=== PATIENT | male | born 1965 | race Hispanic/Latino ===

== ENCOUNTER 2018-03-01 16:42 | Emergency (ER) | payer SELFPAY ==
[2018-03-01] MEDS ORDERED: KETOROLAC 30 MG/ML INJ ONE (17:36)
[2018-03-01] MEDS ORDERED: FENTANYL CITR 100 MCG/2 ML ONE (17:36)
[2018-03-01] MEDS ORDERED: DIAZEPAM 5 MG TABLET ONE (17:36)
--- NOTE | 2018-03-01 19:08 | RAD REPORT ---
EXAM DESCRIPTION: RAD - Lumbar Spine 3 Views - 03/01/2018 5:55 pm CLINICAL HISTORY: Back pain, left lower extremity radiculopathy COMPARISON: Lumbar spine April 2017 FINDINGS: A three-view lumbar spine examination was performed. Lumbar bodies are normal in height an d alignment. No fracture or acute bony process seen. L4-5 and L5-S1 disc space narrowing present. Rosa nges are minimally progressive. L4-5 and L5-S1 facet joint degenerative changes are present. There is a very minimal right convex curvature to the lumbar spine and may be positional or muscle spasm rela steffen. No pars defects identified. IMPRESSION: Facet degenerative change mildly progressive from April 2017. L4-5 and L5-S1 disc space narrowing that appears to have progressed minimally. Concerns for occult bone process, disc herniation or central canal abnormality can be addressed with MR imaging.
--- NOTE | 2018-03-01 19:12 | EDPHYS ---
Physician Documentation [facility] Name: Blake Wilson Age: 52 yrs Sex: Male : 1965 Arrival Date: 03/01/2018 Time: 16:45 Bed 14 Private MD: ED Physician Levi Hernandez HPI: 03/01 17:07 This 52 yrs old Male presents to ER via Ambulatory with complaints of Back snw Pain. 17:07 This 52 yrs old Male presents to ER via Ambulatory with complaints of Back snw Pain. 17:07 The patient presents with pain that is acute. The symptoms are located in the low back. snw Onset: The symptoms/episode began/occurred suddenly, just prior to arrival. The pain radiates to the left leg. Associated signs and symptoms: The patient has no apparent associated signs or symptoms. The problem was sustained when bending over, when lifting heavy object. Severity of symptoms: At their worst the symptoms were incapacitating. The patient has not experienced similar symptoms in the past. It is unknown whether or not the patient has recently seen a physician. Historical: - Allergies: 16:52 No Known Allergies; hj - Home Meds: 16:52 Symbicort 80-4.5 mcg/actuation inhalation HFAA 2 puffs 2 times per day [Active]; hj - PMHx: 16:52 COPD; hj - PSHx: 16:52 None; hj - Immunization history:: Adult Immunizations up to date. - Social history:: Smoking status: unknown. ROS: 17:06 Constitutional: Negative for fever, chills, and weight loss, Eyes: Negative for injury, snw pain, redness, and discharge, ENT: Negative for injury, pain, and discharge, Neck: Negative for injury, pain, and swelling, Cardiovascular: Negative for chest pain, palpitations, and edema, Respiratory: Negative for shortness of breath, cough, wheezing, and pleuritic chest pain, Abdomen/GI: Negative for abdominal pain, nausea, vomiting, diarrhea, and constipation, : Negative for injury, bleeding, discharge, and swelling, MS/Extremity: Negative for injury and deformity, Skin: Negative for injury, rash, and discoloration, Neuro: Negative for headache, weakness, numbness, tingling, and seizure. 17:06 Back: Positive for decreased range of motion, pain at rest, pain with movement, radiated pain, of the left low back, radiation down left leg. Exam: 17:05 Head/Face: Normocephalic, atraumatic. Eyes: Pupils equal round and reactive to light, snw extra-ocular motions intact. Lids and lashes normal. Conjunctiva and sclera are non-icteric and not injected. Cornea within normal limits. Periorbital areas with no swelling, redness, or edema. ENT: Nares patent. No nasal discharge, no septal abnormalities noted. Tympanic membranes are normal and external auditory canals are clear. Oropharynx with no redness, swelling, or masses, exudates, or evidence of obstruction, uvula midline. Mucous membranes moist. Neck: Trachea midline, no thyromegaly or masses palpated, and no cervical lymphadenopathy. Supple, full range of motion without nuchal rigidity, or vertebral point tenderness. No Meningismus. Chest/axilla: Normal chest wall appearance and motion. Nontender with no deformity. No lesions are appreciated. Cardiovascular: Regular rate and rhythm with a normal S1 and S2. No gallops, murmurs, or rubs. Normal PMI, no JVD. No pulse deficits. Respiratory: Lungs have equal breath sounds bilaterally, clear to auscultation and percussion. No rales, rhonchi or wheezes noted. No increased work of breathing, no retractions or nasal flaring. Abdomen/GI: Soft, non-tender, with normal bowel sounds. No distension or tympany. No guarding or rebound. No evidence of tenderness throughout. Skin: Warm, dry with normal turgor. Normal color with no rashes, no lesions, and no evidence of cellulitis. MS/ Extremity: Pulses equal, no cyanosis. Neurovascular intact. Full, normal range of motion. Neuro: Awake and alert, GCS 15, oriented to person, place, time, and situation. Cranial nerves II-XII grossly intact. Motor strength 5/5 in all extremities. Sensory grossly intact. Cerebellar exam normal. Normal gait. 17:05 Constitutional: The patient appears alert, awake, uncomfortable. 17:05 Back: pain, that is severe, ROM is painful, normal spinal alignment noted, CVA tenderness, is absent, vertebral tenderness, is not appreciated, muscle spasm, is appreciated in the left low back, knot noted to left of lumbar vertebral column. Vital Signs: 16:52 BP 120 / 75; Pulse 100; Resp 18; Temp 98.8(TE); Pulse Ox 100% on R/A; Weight 108.86 kg; hj Height 5 ft. 4 in. (162.56 cm); Pain 9/10; 18:12 BP 126 / 75; Pulse 95; Resp 18; Pulse Ox 99% ; aj1 19:11 BP 123 / 82; Pulse 90; Resp 18; Pulse Ox 94% on R/A; mh5 19:57 BP 126 / 82; Pulse 91; Resp 18; Pulse Ox 97% on R/A; aj1 16:52 Body Mass Index 41.19 (108.86 kg, 162.56 cm) hj MDM: 16:59 Patient medically screened. snw 19:19 Data reviewed: vital signs, nurses notes. Data interpreted: Pulse oximetry: on room air snw is 94 %. Interpretation: acceptable. Counseling: I had a detailed discussion with the patient and/or guardian regarding: the historical points, exam findings, and any diagnostic results supporting the discharge/admit diagnosis, the presence of at least one elevated blood pressure reading (>120/80) during this emergency department visit, radiology results, the need for outpatient follow up, to return to the emergency department if symptoms worsen or persist or if there are any questions or concerns that arise at home. Special discussion: Based on the history and exam findings, there is no indication for further emergent testing or inpatient evaluation. I discussed with the patient/guardian the need to see the primary care provider for further evaluation of the symptoms. 03/01 17:05 Order name: Lumbar Spine (3 Views) XRAY; Complete Time: 19:09 snw Administered Medications: 18:11 Drug: Valium 5 mg Route: PO; aj1 19:39 Follow up: Response: No adverse reaction aj1 18:11 Drug: TORadol 60 mg Route: IM; Site: left gluteus; aj1 19:40 Follow up: Response: No adverse reaction aj1 18:11 Drug: fentaNYL (PF) 100 mcg Route: IM; Site: right gluteus; aj1 19:40 Follow up: Response: No adverse reaction aj1 19:39 Drug: predniSONE 60 mg Route: PO; aj1 19:41 Follow up: Response: No adverse reaction aj1 19:40 Drug: [place] (7.5 mg-325 mg) 1 tabs Route: PO; aj1 19:41 Follow up: Response: No adverse reaction aj1 19:40 Drug: Pepcid 20 mg Route: PO; aj1 19:41 Follow up: Response: No adverse reaction aj1 Disposition: 03/01/18 19:11 Discharged to Home. Impression: Low back pain, Radiculopathy, lumbar region. - Condition is Stable. - Discharge Instructions: Back Pain, Adult, Lumbosacral Radiculopathy, Musculoskeletal Pain, Back Injury Prevention, [id number], Back Exercises, [id number], Cryotherapy, Heat Therapy. - Prescriptions for Diclofenac Sodium 75 mg Oral Tablet Sustained Release - take 1 tablet by ORAL route 2 times per day; 30 tablet. orphenadrine citrate 100 mg Oral Tablet Sustained Release - take 1 tablet by ORAL route 2 times per day As needed; 20 tablet. Prednisone 20 mg Oral Tablet - take 2 tablet by ORAL route once daily for 5 days; 10 tablet. - Work release form, Medication Reconciliation Form, Thank You Letter, Antibiotic Education, Prescription Opioid Use form. - Follow up: Private Physician; When: 2 - 3 days; Reason: Recheck today's complaints, Continuance of care, Re-evaluation by your physician. Follow up: Emergency Department; When: As needed; Reason: Worsening of condition. Addendum: 03/04/2018 06:21 Co-signature as Attending Physician, Levi Hernandez MD Available for consultation at p s1 all times. . Signatures: Dispatcher [employer] Leila Jean Baptiste RN RN aj1 Wendy Soto, VENEER MANUFACTURER-C VENEER MANUFACTURER-Csnw Doc Swanson RN RN hj Singer, Phillip, MD MD ps1
--- NOTE | 2018-03-01 19:12 | ER ---
Nurse's Notes [facility] Name: Blake Wilson Age: 52 yrs Sex: Male : 1965 Arrival Date: 03/01/2018 Time: 16:45 Bed 14 Private MD: Diagnosis: Low back pain;Radiculopathy, lumbar region Presentation: 03/01 16:50 Presenting complaint: Patient states: i loaded a heavy stuff to [employer] [place] and i felt a hj warm sensation on my back and felt a tingling sensation on my L leg; pain 9/10;. Transition of care: patient was not received from another setting of care. Onset of symptoms was March 01, 2018. Initial Sepsis Screen: Does the patient meet any 2 criteria? No. Patient's initial sepsis screen is negative. Does the patient have a suspected source of infection? No. Patient's initial sepsis screen is negative. Care prior to arrival: None. 16:50 Method Of Arrival: Ambulatory 16:50 Acuity: SANGEETA 4 hj Triage Assessment: 16:52 General: Appears in no apparent distress. uncomfortable, Behavior is calm, cooperative, hj appropriate for age. Pain: Complains of pain in lumbar area, left low back and right low back. Musculoskeletal: Circulation, motion, and sensation intact. Capillary refill. Historical: - Allergies: 16:52 No Known Allergies; hj - Home Meds: 16:52 Symbicort 80-4.5 mcg/actuation inhalation HFAA 2 puffs 2 times per day [Active]; hj - PMHx: 16:52 COPD; hj - PSHx: 16:52 None; hj - Immunization history:: Adult Immunizations up to date. - Social history:: Smoking status: unknown. Screenin:12 Abuse screen: Denies threats or abuse. Denies injuries from another. Nutritional aj1 screening: No deficits noted. Tuberculosis screening: No symptoms or risk factors identified. 19:58 Fall Risk None identified. aj1 Assessment: 17:05 General: Appears in no apparent distress. comfortable, Behavior is calm, cooperative, aj1 appropriate for age. Pain: Complains of pain in low back area Pain radiates to left leg Pain currently is 9 out of 10 on a pain scale. Neuro: Level of Consciousness is awake, alert, obeys commands, Oriented to person, place, time, situation, Screen Printing Machine Operator are equal bilaterally Moves all extremities. Weakness Gait is steady, Speech is normal, Facial symmetry appears normal, Pupils are PERRLA, Tingling in left leg. Cardiovascular: Patient's skin is warm and dry. Respiratory: Airway is patent Respiratory effort is even, unlabored, Respiratory pattern is regular, symmetrical. GI: No signs and/or symptoms were reported involving the gastrointestinal system. : No signs and/or symptoms were reported regarding the genitourinary system. EENT: No signs and/or symptoms were reported regarding the EENT system. Derm: No signs and/or symptoms reported regarding the dermatologic system. Skin is pink, warm \T\ dry. normal. Musculoskeletal: No signs and/or symptoms reported regarding the musculoskeletal system. Circulation, motion, and sensation intact. 18:16 Reassessment: Patient appears in no apparent distress at this time. No changes from 1 previously documented assessment. Patient and/or family updated on plan of care and expected duration. Pain level reassessed. Patient is alert, oriented x 3, equal unlabored respirations, skin warm/dry/pink. 19:16 Reassessment: Patient appears in no apparent distress at this time. No changes from aj1 previously documented assessment. Patient and/or family updated on plan of care and expected duration. Pain level reassessed. Patient is alert, oriented x 3, equal unlabored respirations, skin warm/dry/pink. Vital Signs: 16:52 BP 120 / 75; Pulse 100; Resp 18; Temp 98.8(TE); Pulse Ox 100% on R/A; Weight 108.86 kg; Height 5 ft. 4 in. (162.56 cm); Pain 9/10; 18:12 BP 126 / 75; Pulse 95; Resp 18; Pulse Ox 99% ; aj1 19:11 BP 123 / 82; Pulse 90; Resp 18; Pulse Ox 94% on R/A; mh5 19:57 BP 126 / 82; Pulse 91; Resp 18; Pulse Ox 97% on R/A; aj1 16:52 Body Mass Index 41.19 (108.86 kg, 162.56 cm) ED Course: 16:45 Patient arrived in ED. mr 16:51 Triage completed. 16:52 Arm band placed on left wrist. 16:59 Wendy Soto FNP-C is PHCP. snw 16:59 Hernandez, Levi, MD is Attending Physician. snw 17:05 Leila Muñoz, RN is Primary Nurse. aj1 17:05 Patient has correct armband on for positive identification. Bed in low position. Call aj1 light in reach. Side rails up X 1. 17:05 No provider procedures requiring assistance completed. aj1 17:39 Patient moved to radiology via wheelchair. ag1 17:51 X-ray completed. Patient tolerated procedure well. Patient moved back from radiology. ag1 17:55 Lumbar Spine (3 Views) XRAY In Process Unspecified. EDMS 19:58 Patient did not have IV access during this emergency room visit. aj1 Administered Medications: 18:11 Drug: Valium 5 mg Route: PO; aj1 19:39 Follow up: Response: No adverse reaction aj1 18:11 Drug: TORadol 60 mg Route: IM; Site: left gluteus; aj1 19:40 Follow up: Response: No adverse reaction aj1 18:11 Drug: fentaNYL (PF) 100 mcg Route: IM; Site: right gluteus; aj1 19:40 Follow up: Response: No adverse reaction aj1 19:39 Drug: predniSONE 60 mg Route: PO; aj1 19:41 Follow up: Response: No adverse reaction aj1 19:40 Drug: [place] (7.5 mg-325 mg) 1 tabs Route: PO; aj1 19:41 Follow up: Response: No adverse reaction aj1 19:40 Drug: Pepcid 20 mg Route: PO; aj1 19:41 Follow up: Response: No adverse reaction aj1 Outcome: 19:11 Discharge ordered by MD. snw 19:58 Discharged to home via wheelchair. aj1 19:58 Condition: good 19:58 Discharge instructions given to patient, Instructed on discharge instructions, follow up and referral plans. medication usage, Demonstrated understanding of instructions, follow-up care, medications, Prescriptions given X 3. 19:59 Patient left the ED. aj1 Signatures: Dispatcher [employer] EDNH Leila Muñoz, RN RN aj1 Wendy Soto, CUPOLA TENDERAdolfoC CUPOLA TENDER-Itzw Afshan Mandel aMndy Rivera ag1 Doc Swanson RN RN hj Martinez, [facility] Corrections: (The following items were deleted from the chart) 16:55 16:52 Pulse 100bpm; Resp 18bpm; Pulse Ox 100% RA; Temp 98.8F Temporal; 108.86 kg; hj Height 5 ft. 4 in.; BMI: 41.2; Pain 9/10; hj 18:15 18:12 General: Appears in no apparent distress. comfortable, Behavior is calm, aj1 cooperative, appropriate for age, aj1 18:15 18:12 Pain: Complains of pain in low back area Pain radiates to left leg Pain currently aj1 is 9 out of 10 on a pain scale. aj1 18:15 18:12 Neuro: Level of Consciousness is awake, alert, obeys commands, Oriented to aj1 person, place, time, situation, Screen Printing Machine Operator are equal bilaterally Moves all extremities. Weakness Gait is steady, Speech is normal, Facial symmetry appears normal, Pupils are PERRLA, Tingling in left leg aj1 18:15 18:12 Cardiovascular: Patient's skin is warm and dry. aj1 aj1 18:15 18:12 Respiratory: Airway is patent Respiratory effort is even, unlabored, Respiratory aj1 pattern is regular, symmetrical, aj1 18:15 18:12 GI: No signs and/or symptoms were reported involving the gastrointestinal system. aj1 aj1 18:15 18:12 : No signs and/or symptoms were reported regarding the genitourinary system. aj1aj1 :15 18:12 EENT: No signs and/or symptoms were reported regarding the EENT system. aj1 aj1 18:15 18:12 Derm: No signs and/or symptoms reported regarding the dermatologic system. Skin aj1 is pink, warm \T\ dry. normal, aj1 : 18:12 Musculoskeletal: No signs and/or symptoms reported regarding the musculoskeletal aj1 system. Circulation, motion, and sensation intact. aj1
[2018-03-01] MEDS ORDERED: FAMOTIDINE 20 MG TAB ONE (19:34)
[2018-03-01] MEDS ORDERED: HYDROCODONE/APAP 7.5/325 MG TAB ONE (19:34)
[2018-03-01] MEDS ORDERED: predniSONE 20 MG TAB ONE (19:34)
[2018-03-01 20:04] VITALS: TEMP 98.8
[2018-03-01 20:08] VITALS: BP 126/82; O2SAT 97
== END 2018-03-01 19:59 | disposition home or self-care (01) ==
LOC: ER 16:42
DX: M54.16 Radiculopathy, lumbar region (principal); J44.9 Chronic obstructive pulmonary disease, unspecified
CPT/HCPCS: 72100; 96372; 99283; J3010; J7512

== ENCOUNTER 2019-01-20 18:48 | Emergency (ER) | payer SELFPAY ==
[2019-01-20 19:23] LABS: Absolute Lymphocytes (CBC) 5.1 K/uL (0.7-4.9); Absolute Monocytes 0.7 K/uL (0.1-1.3); Absolute Neutrophil 4.9 K/uL (1.8-8.0); Basophils % 0.8 % (0-1.3); Eosinophils % 1.7 % (0-4.4); Hematocrit 47.8 % (39.6-49.0); Lymphocytes % 46.4 % (15.3-44.8); Monocytes % 6.3 % (3.3-12.3); RBC Red Blood Cell Count 5.77 M/uL (4.33-5.43)
[2019-01-20 19:54] LABS: ALT/SGPT 64 U/L (12-78); AST/SGOT 26 U/L (15-37); Alkaline Phosphatase 96 U/L (45-117); BUN Blood Urea Nitrogen 13 mg/dL (7-18); Bicarbonate 24 mmol/L (21-32); Bilirubin Direct 0.1 mg/dL (0-0.2); Bilirubin Total 0.4 mg/dL (0.2-1.0); Glucose Level 139 mg/dL (74-106); Magnesium 2.1 mg/dL (1.8-2.4); NT PRO-BNP 10 pg/mL (<125); Potassium 3.6 mmol/L (3.5-5.1); Protein, Total 7.9 g/dL (6.4-8.2); Sodium Level 141 mmol/L (136-145); Troponin (Emerg Dept Use Only) < 0.02 ng/mL (0.0-0.045)
--- NOTE | 2019-01-20 19:59 | RAD REPORT ---
EXAM DESCRIPTION: RAD - Chest Single View - 01/20/2019 7:33 pm CLINICAL HISTORY: Chest pain COMPARISON: May 2015 TECHNIQUE: AP portable chest image was obtained 1928 hours . FINDINGS: Lung volumes are low. No focal lung parenchymal process. Lung markings are not substantial ly different. Heart and vasculature are normal. No measurable pleural effusion and no pneumothorax. N o acute bony abnormality seen. No acute aortic findings suspected. IMPRESSION: No acute cardiopulmonary process. No significant interval change.
--- NOTE | 2019-01-20 21:06 | EDPHYS ---
Physician Documentation [facility] Name: Blake Wilson Age: 53 yrs Sex: Male : 1965 Arrival Date: 01/20/2019 Time: 18:49 Bed 27 Private MD: ED Physician Alonzo Fierro HPI: 01/20 20:51 This 53 yrs old Male presents to ER via EMS with complaints of chest pain. jr8 20:51 The patient or guardian reports chest pain that is located primarily in the substernal jr8 area. Onset: acutely, today. The pain radiates to the left arm, jaw. Associated signs and symptoms: Pertinent positives: diaphoresis, nausea. The chest pain is described as a heaviness, a pressure. Duration: The patient or guardian reports a single episode, that is still ongoing, but improving. Modifying factors: The symptoms are alleviated by ASA, 81mg X4. NTG, X3. Severity of pain: At its worst the pain was moderate in the emergency department the pain has improved. The patient has not experienced similar symptoms in the past. The patient has not recently seen a physician. Pain happened at rest while at work. Historical: - Allergies: 18:57 No Known Allergies; rv - Home Meds: 18:57 Symbicort 80-4.5 mcg/actuation inhalation HFAA 2 puffs 2 times per day [Active]; rv - PMHx: 18:57 COPD; rv - PSHx: 18:57 Knee surgery; rv - Immunization history:: Adult Immunizations up to date. - Social history:: Smoking status: Patient/guardian denies using tobacco, the patient reports quitting approximately 15 years ago. - Ebola Screening: : Patient negative for fever greater than or equal to 101.5 degrees Fahrenheit, and additional compatible Ebola Virus Disease symptoms Patient denies exposure to infectious person Patient denies travel to an Ebola-affected area in the 21 days before illness onset. ROS: 20:51 Eyes: Negative for injury, pain, redness, and discharge, ENT: Negative for injury, jr8 pain, and discharge, Neck: Negative for injury, pain, and swelling, Respiratory: Negative for shortness of breath, cough, wheezing, and pleuritic chest pain, Abdomen/GI: Negative for abdominal pain, nausea, vomiting, diarrhea, and constipation, Back: Negative for injury and pain, MS/Extremity: Negative for injury and deformity, Skin: Negative for injury, rash, and discoloration, Neuro: Negative for headache, weakness, numbness, tingling, and seizure. 20:51 Cardiovascular: Positive for chest pain, Negative for edema, orthopnea, palpitations, paroxysmal nocturnal dyspnea. Exam: 20:51 Eyes: Pupils equal round and reactive to light, extra-ocular motions intact. Lids and jr8 lashes normal. Conjunctiva and sclera are non-icteric and not injected. Cornea within normal limits. Periorbital areas with no swelling, redness, or edema. ENT: Nares patent. No nasal discharge, no septal abnormalities noted. Tympanic membranes are normal and external auditory canals are clear. Oropharynx with no redness, swelling, or masses, exudates, or evidence of obstruction, uvula midline. Mucous membranes moist. Neck: Trachea midline, no thyromegaly or masses palpated, and no cervical lymphadenopathy. Supple, full range of motion without nuchal rigidity, or vertebral point tenderness. No Meningismus. Cardiovascular: Regular rate and rhythm with a normal S1 and S2. No gallops, murmurs, or rubs. Normal PMI, no JVD. No pulse deficits. Respiratory: Lungs have equal breath sounds bilaterally, clear to auscultation and percussion. No rales, rhonchi or wheezes noted. No increased work of breathing, no retractions or nasal flaring. Abdomen/GI: Soft, non-tender, with normal bowel sounds. No distension or tympany. No guarding or rebound. No evidence of tenderness throughout. Back: No spinal tenderness. No costovertebral tenderness. Full range of motion. Skin: Warm, dry with normal turgor. Normal color with no rashes, no lesions, and no evidence of cellulitis. MS/ Extremity: Pulses equal, no cyanosis. Neurovascular intact. Full, normal range of motion. Neuro: Awake and alert, GCS 15, oriented to person, place, time, and situation. Cranial nerves II-XII grossly intact. Motor strength 5/5 in all extremities. Sensory grossly intact. Cerebellar exam normal. Normal gait. Vital Signs: 18:57 BP 132 / 80 LA Supine; Pulse 100; Resp 21 S; Pulse Ox 100% on R/A; rv 19:30 BP 116 / 81 LA; Pulse 89; Resp 23 S; Pulse Ox 95% on R/A; rv 20:00 BP 121 / 77 LA; Pulse 88; Resp 18 S; Pulse Ox 95% on R/A; rv 20:30 BP 106 / 78 LA; Pulse 83; Resp 18 S; Pulse Ox 95% on R/A; rv 21:00 BP 114 / 78 RA; Pulse 83; Resp 16 S; Pulse Ox 96% on R/A; rv 21:30 BP 116 / 81 RA; Pulse 82; Resp 19 S; Pulse Ox 96% on R/A; rv 21:59 Weight 100.24 kg (R); rv 22:00 BP 110 / 77 RA; Pulse 88; Resp 19 S; Pulse Ox 96% on R/A; rv 22:30 BP 124 / 88 RA; Pulse 76; Resp 16 S; Pulse Ox 96% on R/A; rv 23:10 Weight 101.56 kg; lt1 01/21 00:55 BP 98 / 61; Pulse 77; Resp 17; Pulse Ox 96% ; rv 01:20 BP 95 / 56 RA; Pulse 81; Resp 15 S; Pulse Ox 95% on R/A; rv 01:30 BP 104 / 76 RA; Pulse 96; Resp 16 S; Pulse Ox 99% on R/A; rv 03:23 BP 112 / 76 RA; Pulse 75; Resp 16 S; Pulse Ox 95% on R/A; rv MDM: 01/20 19:00 Patient medically screened. jr8 21:01 The patient was not given aspirin in the Emergency Department. Administered by EMS. jr8 Data reviewed: vital signs, nurses notes, lab test result(s), EKG, radiologic studies, plain films, and as a result, I will discharge patient. Data interpreted: Pulse oximetry: on room air is 95 %. Interpretation: normal. Counseling: I had a detailed discussion with the patient and/or guardian regarding: the historical points, exam findings, and any diagnostic results supporting the discharge/admit diagnosis, lab results, radiology results, the need for further work-up and treatment in the hospital. Physician consultation: Elle Dorsey MD was called at 21:02, was contacted at 21:02, regarding admission, to the telemetry unit. consult, patient's condition, and will see patient in ED. 22:13 ED course: Discussed case with cardiology. Will not have analytical lab analyst available for jr8 catheterization. Recommends transfer to another facility . 23:02 ED course: Dr. Wild Cardiology Accepted at [facility] for further evaluation of jr8 unstable angina . 01/20 19:00 Order name: Basic Metabolic Panel; Complete Time: 20:01/20 19:00 Order name: CBC with Diff; Complete Time: 20:8 01/20 19:00 Order name: LFT's; Complete Time: 20:01/20 19:00 Order name: Magnesium; Complete Time: 20:01/20 19:00 Order name: NT PRO-BNP; Complete Time: 20:01/20 19:00 Order name: PT-INR; Complete Time: 20:01/20 19:00 Order name: Troponin (emerg Dept Use Only); Complete Time: 20:01/20 19:00 Order name: XRAY Chest (1 view); Complete Time: 20: 01/20 22:17 Order name: Urine Dipstick--Ancillary (enter results); Complete Time: 23: de5 01/20 19:00 Order name: EKG; Complete Time: 19:01/20 19:00 Order name: Cardiac monitoring; Complete Time: 19:01/20 19:00 Order name: EKG - Nurse/Tech; Complete Time: 19:01/20 19:00 Order name: IV Saline Lock; Complete Time: 19:01/20 19:00 Order name: Labs collected and sent; Complete Time: 19:01/20 19:00 Order name: O2 Per Protocol; Complete Time: 19:01/20 19:00 Order name: O2 Sat Monitoring; Complete Time: 19:03 Administered Medications: 22:14 Drug: fentaNYL (PF) 50 mcg Route: IVP; Site: left forearm; rv 23:46 Follow up: Response: No adverse reaction rv 22:14 Drug: Zofran 4 mg Route: IVP; Site: left forearm; rv 23:46 Follow up: Response: No adverse reaction rv 22:14 Drug: Lovenox 1 mg/kg Route: Sub-Q; Site: left lower abdomen; rv 23:46 Follow up: Response: No adverse reaction rv 22:14 Drug: Effient 60 mg Route: PO; rv 23:45 Follow up: Response: No adverse reaction rv 23:45 Follow up: Response: No adverse reaction rv 23:10 Drug: Heparin ([place] Drip) 12 units/kg/hr - (HEParin 54363 units, D5W 500 ml) rv {Co-Signature: la1 (Quincy Patterson RN).} Route: IV; Rate: calculated rate; Site: left antecubital; 23:45 Follow up: IV Status: Infusion continued upon transfer rv 23:19 Drug: Nitro Drip - (Nitroglycerin 50 mg, D5W 250 ml) Route: IV; Rate: 5 mcg/min; Site: rv right hand; 23:45 Follow up: IV Status: Infusion continued upon transfer rv 01/21 01:03 Follow up: Rate change 2.5 mg/hr rv 01:03 Follow up: Rate change 2.5 mcg/min rv 01/20 23:45 Drug: Atorvastatin 80 mg Route: PO; rv 01/21 01:02 Follow up: Response: No adverse reaction rv Disposition: 01/20/19 23:03 Transfer ordered to [facility]. Diagnosis is Unstable angina. - Reason for transfer: Higher level of care. - Accepting physician is Dr. Wild. - Condition is Fair. - Problem is new. - Symptoms have improved. Addendum: 01/22/2019 09:33 Co-signature as Attending Physician, Alonzo Fierro MD I agree with the assessment and c varela plan of care. Signatures: Dispatcher [employer] Alonzo Heath MD MD cha Roszak, Josh, PA PA jr8 Ranjan Alaniz RN RN rv Quincy Patterson RN la1 Corrections: (The following items were deleted from the chart) 01/20 22:13 21:05 Hospitalization Ordered by Elle Dorsey MD for Observation. Preliminary jr8 diagnosis is Unstable angina. Bed requested for Telemetry/MedSurg (observation). Status is Observation. Condition is Stable. Problem is new. Symptoms have improved. UTI on Admission? No. jr8 01/21 03:24 01/20 23:03 01/20/2019 23:03 Transfer ordered to [facility]. rv Diagnosis is Unstable angina. Reason for transfer: Higher level of care. Accepting physician is Dr. Wild. Condition is Fair. Problem is new. Symptoms have improved. jr8
--- NOTE | 2019-01-20 21:06 | ER ---
Nurse's Notes [facility] Name: Blake Wilson Age: 53 yrs Sex: Male : 1965 Arrival Date: 01/20/2019 Time: 18:49 Bed 27 Private MD: Diagnosis: Unstable angina Presentation: 01/20 18:54 Presenting complaint: EMS states: PATIENT SITTING IN THE CAR AT SUDDENLY FELT CHEST rv PAIN 10/10. STARTED SWEATING AND SHORTNESS OF BREATH. (+) NAUSEA. GIVEN ASPIRIN 324, NITRO .4, AND ZOFRAN 4MG. Transition of care: patient was not received from another setting of care. Onset of symptoms was January 20, 2019 at 18:30. Risk Assessment: Do you want to hurt yourself or someone else? Patient reports no desire to harm self or others. Initial Sepsis Screen: Does the patient meet any 2 criteria? No. Patient's initial sepsis screen is negative. Does the patient have a suspected source of infection? No. Patient's initial sepsis screen is negative. Care prior to arrival: None. 18:54 Method Of Arrival: EMS: [facility] rv 18:54 Acuity: SANGEETA 3 rv Triage Assessment: 18:58 General: Appears in no apparent distress. uncomfortable, Behavior is calm, cooperative. rv Pain: Complains of pain in chest. EENT: No signs and/or symptoms were reported regarding the EENT system. Neuro: Level of Consciousness is awake, alert, obeys commands, Oriented to person, place, time, situation. Cardiovascular: Capillary refill < 3 seconds. Respiratory: Airway is patent. GI: No signs and/or symptoms were reported involving the gastrointestinal system. : No signs and/or symptoms were reported regarding the genitourinary system. Derm: No signs and/or symptoms reported regarding the dermatologic system. Skin is intact. Musculoskeletal: No signs and/or symptoms reported regarding the musculoskeletal system. Historical: - Allergies: 18:57 No Known Allergies; rv - Home Meds: 18:57 Symbicort 80-4.5 mcg/actuation inhalation HFAA 2 puffs 2 times per day [Active]; rv - PMHx: 18:57 COPD; rv - PSHx: 18:57 Knee surgery; rv - Immunization history:: Adult Immunizations up to date. - Social history:: Smoking status: Patient/guardian denies using tobacco, the patient reports quitting approximately 15 years ago. - Ebola Screening: : Patient negative for fever greater than or equal to 101.5 degrees Fahrenheit, and additional compatible Ebola Virus Disease symptoms Patient denies exposure to infectious person Patient denies travel to an Ebola-affected area in the 21 days before illness onset. Screenin:59 Abuse screen: Denies threats or abuse. Denies injuries from another. Nutritional rv screening: No deficits noted. Tuberculosis screening: No symptoms or risk factors identified. Fall Risk None identified. Assessment: 20:48 General: Appears in no apparent distress. comfortable, Behavior is calm, cooperative. rv Pain: Denies pain. Neuro: Level of Consciousness is awake, alert, obeys commands, Oriented to person, place, time, situation. Cardiovascular: Capillary refill < 3 seconds. Cardiovascular: Rhythm is regular. Respiratory:. GI: No signs and/or symptoms were reported involving the gastrointestinal system. : No signs and/or symptoms were reported regarding the genitourinary system. EENT: No signs and/or symptoms were reported regarding the EENT system. Derm: Skin is intact. Musculoskeletal: No signs and/or symptoms reported regarding the musculoskeletal system. 23:02 Reassessment: Patient appears in no apparent distress at this time. No changes from rv previously documented assessment. Patient and/or family updated on plan of care and expected duration. Pain level reassessed. Patient is alert, oriented x 3, equal unlabored respirations, skin warm/dry/pink. 01/21 01:21 Reassessment: Patient appears in no apparent distress at this time. Patient and/or rv family updated on plan of care and expected duration. Pain level reassessed. Patient is alert, oriented x 3, equal unlabored respirations, skin warm/dry/pink. awaiting EMS, for transfer. Vital Signs: 01/20 18:57 BP 132 / 80 LA Supine; Pulse 100; Resp 21 S; Pulse Ox 100% on R/A; rv 19:30 BP 116 / 81 LA; Pulse 89; Resp 23 S; Pulse Ox 95% on R/A; rv 20:00 BP 121 / 77 LA; Pulse 88; Resp 18 S; Pulse Ox 95% on R/A; rv 20:30 BP 106 / 78 LA; Pulse 83; Resp 18 S; Pulse Ox 95% on R/A; rv 21:00 BP 114 / 78 RA; Pulse 83; Resp 16 S; Pulse Ox 96% on R/A; rv 21:30 BP 116 / 81 RA; Pulse 82; Resp 19 S; Pulse Ox 96% on R/A; rv 21:59 Weight 100.24 kg (R); rv 22:00 BP 110 / 77 RA; Pulse 88; Resp 19 S; Pulse Ox 96% on R/A; rv 22:30 BP 124 / 88 RA; Pulse 76; Resp 16 S; Pulse Ox 96% on R/A; rv 23:10 Weight 101.56 kg; lt1 01/21 00:55 BP 98 / 61; Pulse 77; Resp 17; Pulse Ox 96% ; rv 01:20 BP 95 / 56 RA; Pulse 81; Resp 15 S; Pulse Ox 95% on R/A; rv 01:30 BP 104 / 76 RA; Pulse 96; Resp 16 S; Pulse Ox 99% on R/A; rv 03:23 BP 112 / 76 RA; Pulse 75; Resp 16 S; Pulse Ox 95% on R/A; rv ED Course: 01/20 18:49 Patient arrived in ED. la1 18:56 Triage completed. rv 18:59 Patient has correct armband on for positive identification. Placed in gown. Bed in low rv position. Call light in reach. Side rails up X 1. classroom monitor on. Pulse ox on. NIBP on. 18:59 Patient placed in an exam room, on a stretcher, on property assessment monitor, on pulse oximetry. rv Patient notified of wait time. EKG completed in triage. Results shown to MD. 19:00 Imer Quintero PA is PHCP. jr8 19:00 Alonzo Fierro MD is Attending Physician. jr8 19:00 Inserted saline lock: 20 gauge in left antecubital area, using aseptic technique. Blood rv collected. 19:00 Inserted saline lock: 20 gauge in right hand, using aseptic technique. rv 19:33 XRAY Chest (1 view) In Process Unspecified. EDMS 21:05 Elle Dorsey MD is Hospitalizing Provider. jr8 23:47 Patient transferred, IV remains in place. intact. rv 23:48 No provider procedures requiring assistance completed. rv Administered Medications: 22:14 Drug: fentaNYL (PF) 50 mcg Route: IVP; Site: left forearm; rv 23:46 Follow up: Response: No adverse reaction rv 22:14 Drug: Zofran 4 mg Route: IVP; Site: left forearm; rv 23:46 Follow up: Response: No adverse reaction rv 22:14 Drug: Lovenox 1 mg/kg Route: Sub-Q; Site: left lower abdomen; rv 23:46 Follow up: Response: No adverse reaction rv 22:14 Drug: Effient 60 mg Route: PO; rv 23:45 Follow up: Response: No adverse reaction rv 23:45 Follow up: Response: No adverse reaction rv 23:10 Drug: Heparin ([place] Drip) 12 units/kg/hr - (HEParin 62337 units, D5W 500 ml) rv {Co-Signature: shannen (Quincy Patterson RN).} Route: IV; Rate: calculated rate; Site: left antecubital; 23:45 Follow up: IV Status: Infusion continued upon transfer rv 23:19 Drug: Nitro Drip - (Nitroglycerin 50 mg, D5W 250 ml) Route: IV; Rate: 5 mcg/min; Site: rv right hand; 23:45 Follow up: IV Status: Infusion continued upon transfer rv 01/21 01:03 Follow up: Rate change 2.5 mg/hr rv 01:03 Follow up: Rate change 2.5 mcg/min rv 01/20 23:45 Drug: Atorvastatin 80 mg Route: PO; rv 01/21 01:02 Follow up: Response: No adverse reaction rv Outcome: 01/20 21:05 Decision to Hospitalize by Provider. jr8 23:03 ER care complete, transfer ordered by MD. jr8 23:48 Transferred by ground EMS to [facility], Transfer form completed. rv X-rays sent w/ patient. 23:48 Condition: stable 23:48 Instructed on the need for transfer, Demonstrated understanding of instructions. 01/21 03:24 Patient left the ED. rv Signatures: Dispatcher [employer] EDMS Imer Quintero PA PA jr8 Attema, Lee RN RN la1 Ranjan Alaniz RN RN rv Savannah Pisano lt1 Quincy Patterson RN la1
[2019-01-20] MEDS ORDERED: FENTANYL CITR 100 MCG/2 ML ONE (22:14)
[2019-01-20] MEDS ORDERED: ENOXAPARIN 100 MG/ML SYR SQ ONE (22:16)
[2019-01-20] MEDS ORDERED: ONDANSETRON 4 MG/2 ML VIAL ONE (22:16)
[2019-01-20] MEDS ORDERED: PRASUGREL (EFFIENT) 10 MG TAB ONE (22:18)
[2019-01-20 22:58] LABS: Urine Blood NEGATIVE (NEG); Urine Glucose NEGATIVE (NEG); Urine Protein NEGATIVE (NEG); Urine pH 5.5 (5.0-7.0)
[2019-01-20] MEDS ORDERED: HEPARIN/D5W 25,000 UNIT/500 ML BAG IV ONE (23:17)
[2019-01-20] MEDS ORDERED: NITROGLYCERIN/D5W 50 MG/250 ML BTL IV ONE (23:17)
[2019-01-21] MEDS ORDERED: ATORVASTATIN 80 MG TAB ONE (00:41)
[2019-01-21] MEDS ORDERED: ACETAMINOPHEN 500 MG TAB ONE (01:11)
[2019-01-21 04:15] VITALS: BP 112/76; O2SAT 95
--- NOTE | 2019-01-21 05:55 | EKG ---
Test Date: 2019-01-20 Test Time: 18:51:38 [employer] Route Aide: MEASUREMENT RESULTS: Intervals: Rate: 101 AR: 142 QRSD: 78 QT: 346 QTc: 448 [place]: P: 70 AR: 142 QRS: 58 T: 17 INTERPRETIVE STATEMENTS: Sinus tachycardia Otherwise normal ECG Compared to ECG 10/01/2009 08:31:54 Sinus rhythm no longer present Electronically Signed On 01-21-19 05:54:19 CDT by Faisal Morrissey
== END 2019-01-21 03:24 | disposition short-term general hospital (02) ==
LOC: ER 18:48
DX: I20.0 Unstable angina (principal); J44.9 Chronic obstructive pulmonary disease, unspecified
CPT/HCPCS: 36415; 71045; 80048; 80076; 81003; 83735; 83880; 84484; 85025; 85610; 93005; 96372; 99285; J1650; J2405; J3010

== ENCOUNTER 2019-02-10 19:48 | Emergency (ER) | payer SELFPAY ==
--- OUTSIDE RECORDS SUMMARY | 2019-02-10 19:51 | XMS REPORT | Clinical Summary ---
:1965 Author Organization [facility] Address [address] [place] [address] Care Team Providers Name Role Phone System, Provider Not In Primary Care Provider Unavailable Allergies No Known Allergies Medications Medication Sig Dispensed Refills Start Date End Date Status budesonide-formoter Inhale 1 puff 0 Active ol (SYMBICORT) by mouth via 160-4.5 inhaler as mcg/actuation needed. inhaler pantoprazole Take 1 tablet 60 tablet 0 01/24/2019 Active (PROTONIX) 40 MG (40 mg total) tablet by mouth 2 (two) times daily. aspirin 81 MG EC Take 1 tablet 30 tablet 0 01/24/2019 01/24/2019 Discontinued tablet (81 mg total) by mouth daily for 30 days. Active Problems Problem Noted Date Unstable angina 01/21/2019 Encounters Date Type Specialty Care Team Description 01/24/2019 Anesthesia Event Gastroenterology Yessenia Orozco CRNA 01/24/2019 Surgery Gastroenterology SKYLAR Diallo MD ENDOSCOPY,BIOPSY 01/21/2019 Hospital Cardiology Nate Brambila Unstable angina (HCC); - Encounter MD Dwain Hyperlipidemia, unspecified hyperlipidemia type; 01/24/2019 José Miguel Shin Chronic obstructive pulmonary disease, unspecified COPD type (HCC); MD Yisel History of smoking; Chest pain, unspecified type 01/21/2019 Travel 01/21/2019 Orders Only General Internal Medicine after 02/09/2018 Immunizations Name Dates Previously Given Next Due Influenza Four-QIV Non-PF 5+ YR 01/22/2019 Rabies 01/24/2019, 01/21/2019, 01/21/2019 (Deferred: ) Td 01/22/2019 Family History Medical History Relation Name Comments Heart disease Father Relation Name Status Comments Father Social History Tobacco Use Types Packs/Day Years Used Date Former Smoker 2 5 Smokeless Tobacco: Former User Quit: 2003 Tobacco Cessation: Counseling Given: No Alcohol Use Drinks/Week oz/Week Comments No Alcohol Habits Answer Date Recorded How often do you have a drink containing alcohol? Never 01/21/2019 How many drinks containing alcohol do you have on a typical Not asked day when you are drinking? How often do you have six or more drinks on one occasion? Not asked Sex Assigned at Date Recorded Not on file Job Start Date Occupation Industry Not on file Not on file Not on file Travel History Travel Start Travel End No recent travel history available. Last Filed Vital Signs Vital Sign Reading Time Taken Blood Pressure 107/65 01/24/2019 11:00 AM CDT Pulse 73 01/24/2019 11:00 AM CDT Temperature 36.4 C (97.5 F) 01/24/2019 11:00 AM CDT Respiratory Rate 18 01/24/2019 11:00 AM CDT Oxygen Saturation 94% 01/24/2019 11:00 AM CDT Inhaled Oxygen Concentration - - Weight 99.6 kg (219 lb 9.6 oz) 01/24/2019 7:11 AM CDT Height 160 cm (5' 3") 01/21/2019 4:52 AM CDT Body Mass Index 38.9 01/24/2019 7:11 AM CDT Plan of Treatment Not on file Procedures Procedure Name Priority Date/Time Associated Comments Diagnosis RHYTHM STRIP - SCAN 01/26/2019 9:21 AM CDT REPORT OF PROCEDURE - 01/26/2019 9:21 ENDOSCOPY SCAN AM CDT REPORT OF PROCEDURE - 01/24/2019 8:41 ENDOSCOPY URL AM CDT TISSUE EXAM AP Routine 01/24/2019 8:34 Results for this AM CDT procedure are in the results section. UPPER ENDOSCOPY,BIOPSY 01/24/2019 8:00 Chest pain, AM CDT unspecified type CBC W/PLT COUNT & AUTO Routine 01/24/2019 6:14 Results for this DIFFERENTIAL AM CDT procedure are in the results section. MAGNESIUM Routine 01/24/2019 6:14 Results for this AM CDT procedure are in the results section. BASIC METABOLIC PANEL Routine 01/24/2019 6:14 Results for this (7) AM CDT procedure are in the results section. CBC W/PLT COUNT & AUTO Routine 01/24/2019 6:14 Results for this DIFFERENTIAL AM CDT procedure are in the results section. ECHOCARDIOGRAM REPORT 01/23/2019 9:22 - SCAN PM CDT CBC W/PLT COUNT & AUTO Routine 01/23/2019 4:42 Results for this DIFFERENTIAL AM CDT procedure are in the results section. MAGNESIUM Routine 01/23/2019 4:42 Results for this AM CDT procedure are in the results section. BASIC METABOLIC PANEL Routine 01/23/2019 4:42 Results for this (7) AM CDT procedure are in the results section. CBC W/PLT COUNT & AUTO Routine 01/23/2019 4:42 Results for this DIFFERENTIAL AM CDT procedure are in the results section. TRANSFUSION SERVICE 01/22/2019 6:00 REPORT - SCAN PM CDT NM CARDIAC PET STAT 01/22/2019 4:13 Results for this PERFUSION REST AND/OR PM CDT procedure are in STRESS the results section. TREADMILL Routine 01/22/2019 4:00 Results for this TOLERANCE(NON-NUCLEAR PM CDT procedure are in TREADMILL) the results section. TRANSTHORACIC ECHO FOR Routine 01/22/2019 1:56 Results for this RESULTS PM CDT procedure are in the results section. TROPONIN I Routine 01/22/2019 11:40 Results for this AM CDT procedure are in the results section. CBC W/PLT COUNT & AUTO Routine 01/22/2019 6:37 Results for this DIFFERENTIAL AM CDT procedure are in the results section. APTT Routine 01/22/2019 6:37 Results for this AM CDT procedure are in the results section. TROPONIN I Routine 01/22/2019 6:37 Results for this AM CDT procedure are in the results section. TSH/FREE T4 IF Routine 01/22/2019 6:37 Results for this INDICATED AM CDT procedure are in the results section. MAGNESIUM Routine 01/22/2019 6:37 Results for this AM CDT procedure are in the results section. BASIC METABOLIC PANEL Routine 01/22/2019 6:37 Results for this (7) AM CDT procedure are in the results section. CBC W/PLT COUNT & AUTO Routine 01/22/2019 6:37 Results for this DIFFERENTIAL AM CDT procedure are in the results section. TROPONIN I Routine 01/21/2019 8:45 Results for this PM CDT procedure are in the results section. APTT Routine 01/21/2019 1:00 Results for this PM CDT procedure are in the results section. TROPONIN I Routine 01/21/2019 1:00 Results for this PM CDT procedure are in the results section. ABORH, MANUAL STAT 01/21/2019 7:40 Results for this AM CDT procedure are in the results section. APTT Routine 01/21/2019 7:40 Results for this AM CDT procedure are in the results section. CBC W/PLT COUNT & AUTO STAT 01/21/2019 5:34 Results for this DIFFERENTIAL AM CDT procedure are in the results section. TYPE AND SCREEN, Routine 01/21/2019 5:34 Results for this AUTOMATED AM CDT procedure are in the results section. APTT Routine 01/21/2019 5:34 Results for this AM CDT procedure are in the results section. HEMOGLOBIN A1C STAT 01/21/2019 5:34 Results for this AM CDT procedure are in the results section. LIPID PANEL STAT 01/21/2019 5:34 Results for this AM CDT procedure are in the results section. B-TYPE NATRIURETIC STAT 01/21/2019 5:34 Results for this FACTOR (BNP) AM CDT procedure are in the results section. TROPONIN I STAT 01/21/2019 5:34 Results for this AM CDT procedure are in the results section. MAGNESIUM STAT 01/21/2019 5:34 Results for this AM CDT procedure are in the results section. COMPREHENSIVE STAT 01/21/2019 5:34 Results for this METABOLIC PANEL AM CDT procedure are in the results section. CBC W/PLT COUNT & AUTO STAT 01/21/2019 5:34 Results for this DIFFERENTIAL AM CDT procedure are in the results section. 2D ECHO W/ DOPPLER MARISOL 01/21/2019 4:55 (CW/PW/COLOR) AM CDT ECG 12-LEAD Routine 01/21/2019 4:24 AM CDT Procedure Note - Interface, External Ris In - 01/21/2019 5:29 AM CDT Ventricular Rate 74 BPM Atrial Rate 74 BPM P-R Interval 170 ms QRS Duration 80 ms Q-T Interval 402 ms QTC Calculation(Bazett) 446 ms P [place] 45 degrees R [place] 16 degrees T Brunswick 20 degrees Normal sinus rhythm Normal ECG No previous ECGs available ECG 12-LEAD STAT 01/21/2019 4:24 AM CDT after 02/09/2018 Results RHYTHM STRIP - SCAN (01/26/2019 9:21 AM CDT) Narrative Performed At EKG-SCANNED (01/26/2019 9:21 AM CDT) Narrative Performed At REPORT OF PROCEDURE - ENDOSCOPY URL (01/24/2019 8:41 AM CDT) Narrative Performed At Tissue Exam (01/24/2019 8:34 AM CDT) Case Report Surgical Pathology Report Case: [id number] [facility] Authorizing Provider:Jigna Diallo MD Collected: 01/24/2019 0834 [facility] Ordering Location: [address] Received: 01/24/2019 1414 Service Pathologist: Leon Chacko MD Specimen:Stomach, biopsy DIAGNOSIS A. STOMACH, RANDOM BIOPSIES: [facility] - CHRONIC GASTRITIS WITH FOCAL ACTIVITY (SEE COMMENT) [facility] - NEGATIVE FOR HELICOBACTER PYLORI ORGANISMS BY WARTHIN STARRY STAIN - NEGATIVE FOR INTESTINAL METAPLASIA, DYSPLASIA, MALIGNANCY Signing Pathologist Direct Phone Line: [phone] CPT Code(s) 82635 [facility] [id number] [facility] CLINICAL HISTORY Chest pain [facility] SPECIMEN SOURCE Stomach biopsy [facility] GROSS DESCRIPTION The specimen is received in a [facility] formalin-filled container [facility] labeled with the patient's information and labeled "stomach biopsy" and consists of four fragments of regan-red soft tissue ranging from 0.1 to 0.5 cm, submitted entirely in A1. CG/ew MICROSCOPIC DESCRIPTION Performed. [facility] SPECIAL STUDIES The interpretation of this case included the use of immunohistochemistry or special stains. [facility] Immunohistochemistry technical testing was performed at [facility], Pathology Laboratory where it was developed and its performance characteristics were determined. It has not be en cleared or approved by the U.S. Food and Drug Administration. The FDA has determined that such clearance or approval is not necessary. The test is used for clinical purposes. It should not be regarde d as investigational or for research. This laboratory is certified under the Clinical Laboratory Improvement Amendments of 1988 (CLIA-88) as qualified to perform high complexity clinical laboratory testing. Specimen Tissue - Stomach Performing Organization Address City/State/Zipcode Phone Number [facility] [address] [place] [address] CENTER CBC with platelet count + automated diff (01/24/2019 6:14 AM CDT)Only the most recent of4 resultswithin the time period is included. WBC 9.1 3.5 - 10.5 K/L [facility] RBC 5.62 4.63 - 6.08 M/L [facility] Hemoglobin 15.6 13.7 - 17.5 GM/DL [facility] Hematocrit 47.4 40.1 - 51.0 % [facility] MCV 84.3 79.0 - 92.2 fL [facility] MCH 27.8 25.7 - 32.2 pg [facility] MCHC 32.9 32.3 - 36.5 GM/DL [facility] RDW 13.9 11.6 - 14.4 % [facility] Platelets 177 150 - 450 K/CU MM [facility] MPV 10.1 9.4 - 12.4 fL [facility] nRBC 0 0 - 0 /100 WBC [facility] % Neutros 52 % [facility] % Lymphs 38 % [facility] % Monos 8 % [facility] % Eos 3 % [facility] % Baso 0 % [facility] # Neutros 4.66 1.78 - 5.38 K/L [facility] # Lymphs 3.41 1.32 - 3.57 K/L [facility] # Monos 0.70 0.30 - 0.82 K/L [facility] # Eos 0.23 0.04 - 0.54 K/L [facility] # Baso 0.03 0.01 - 0.08 K/L [facility] Immature Granulocytes-Relative 0 0 - 1 % [facility] Specimen Blood - Arm, Left Performing Organization Address City/[facility] Phone Number [address] [phone] CENTER Magnesium (01/24/2019 6:14 AM CDT)Only the most recent of4 resultswithin the time period is included. Magnesium 1.8 1.6 - 2.6 mg/dL [facility] Specimen Blood - Arm, Left Performing Organization Address [facility] Phone Number [address] [phone] CENTER Basic Metabolic Panel (01/24/2019 6:14 AM CDT)Only the most recent of3 resultswithin the time period is included. Sodium 136 136 - 145 meq/L [facility] Potassium 4.1 3.5 - 5.1 meq/L [facility] Chloride 105 98 - 107 meq/L [facility] CO2 23 22 - 29 meq/L [facility] BUN 14 7 - 21 mg/dL [facility] Creatinine 0.84 0.57 - 1.25 mg/dL [facility] Glucose 97 70 - 105 mg/dL [facility] Calcium 9.4 8.4 - 10.2 mg/dL [facility] EGFR 96Comment: ESTIMATED GFR IS mL/min/1.73 sq m [facility] NOT ACCURATE [facility] CLEARANCE IN PREDICTING GLOMERULAR FILTRATION RATE. ESTIMATED GFR IS NOT APPLICABLE FOR DIALYSIS PATIENTS. Specimen Blood - Arm, Left Performing Organization Address City/State/Zipcode Phone Number [facility] [address] [place] [address] [phone] CENTER ECHOCARDIOGRAM REPORT - SCAN (01/23/2019 9:22 PM CDT) Narrative Performed At TRANSFUSION SERVICE REPORT - SCAN (01/22/2019 6:00 PM CDT) Narrative Performed At NM myocardial perfusion PET (rest and stress) (01/22/2019 4:13 PM CDT) Narrative Performed At FINAL REPORT [facility] PROCEDURE: MYOCARDIAL PERFUSION PET IMAGING (Rest/Stress) [[id number]] INDICATION: Chest pain CARDIOVASCULAR PROFILE: Symptoms: Chest pain, angina CAD History: None Risk Factors: Obesity (BMI 39.1), dyslipidemia, tobacco Medications: Aspirin, heparin, atorvastatin, metoprolol, nitroglycerin STRESS PROTOCOL: Pharmacologic stress was achieved with a 10-second intravenous infusion of regadenoson 0.4 mg. IMAGING PROTOCOL: - Limited low-dose CT imaging was performed for attenuation correction. - 40.2 mCi of Rb-82 chloride was injected intravenously at rest, and PET images were obtained. - Then, 40.0 mCi of Rb-82 chloride was injected intravenously at peak stress, and PET images were obtained. REST FINDINGS: HR: 81 /min BP: 102/48 mmHg Prelim. EKG: Normal sinus rhythm. Perfusion: Normal. Wall Motion: Normal (LVEF 51%). LV Volume: Normal. RV Volume: Normal. STRESS FINDINGS: HR: 81 /min (47% of MPHR) BP: 89/55 mmHg Prelim. EKG: No ischemic changes. Symptoms: None (treatment not required). Perfusion: Normal. Wall Motion: Normal (LVEF 66%). LV Volume: Unchanged from rest. IMPRESSION: 1. Normal study. 2. Normal myocardial perfusion. 3. Normal global LV function, which does not deteriorate with stress. 4. Normal extracardiac tracer distribution. 5. Low-risk findings. 6. There is no prior study for comparison. Signed: Gee Dhaliwal MD Report Verified Date/Time:01/22/2019 16:26:04 Reading Location: [address] P327B Nuc Med Reading Room Procedure Note Interface, External Ris In - 01/22/2019 4:28 PM CDT FINAL REPORT PROCEDURE: MYOCARDIAL PERFUSION PET IMAGING (Rest/Stress) [[id number]] INDICATION: Chest pain CARDIOVASCULAR PROFILE: Symptoms: Chest pain, angina CAD History: None Risk Factors: Obesity (BMI 39.1), dyslipidemia, tobacco Medications: Aspirin, heparin, atorvastatin, metoprolol, nitroglycerin STRESS PROTOCOL: Pharmacologic stress was achieved with a 10-second intravenous infusion of regadenoson 0.4 mg. IMAGING PROTOCOL: - Limited low-dose CT imaging was performed for attenuation correction. - 40.2 mCi of Rb-82 chloride was injected intravenously at rest, and PET images were obtained. - Then, 40.0 mCi of Rb-82 chloride was injected intravenously at peak stress, and PET images were obtained. REST FINDINGS: HR: 81 /min BP: 102/48 mmHg Prelim. EKG: Normal sinus rhythm. Perfusion: Normal. Wall Motion: Normal (LVEF 51%). LV Volume: Normal. RV Volume: Normal. STRESS FINDINGS: HR: 81 /min (47% of MPHR) BP: 89/55 mmHg Prelim. EKG: No ischemic changes. Symptoms: None (treatment not required). Perfusion: Normal. Wall Motion: Normal (LVEF 66%). LV Volume: Unchanged from rest. IMPRESSION: 1. Normal study. 2. Normal myocardial perfusion. 3. Normal global LV function, which does not deteriorate with stress. 4. Normal extracardiac tracer distribution. 5. Low-risk findings. 6. There is no prior study for comparison. Signed: Gee Dhaliwal MD Report Verified Date/Time: 01/22/2019 16:26:04 Reading Location: [address] P327B Nuc Med Reading Room Performing Organization Address City/State/Zipcode Phone Number GE RIS Treadmill tolerance(Non-Nuclear Treadmill) (01/22/2019 4:00 PM CDT) Narrative Performed At Protocol Name Regadenoson GE MUSE Time In Exercise Phase 00:01:00 Max. Systolic BP 89 mmHg Max Diastolic BP 55 mmHg Max Heart Rate 81 BPM Max Predicted Heart Rate 169 BPM Reason For Termination Predetermined end point Reason for Test Chest Pain Target HR Formula (220 - Age)*100% Arrhythmias none Resting ECG Normal sinus rhythm ST Changes No Significant Changes Overall Impression Indeterminate due to pharmacological stress Chest Pain none HR Response To Exercise BP Response To Exercise NTG ASA LIPITOR Heparin metoprolol Confirmed by fellow Abdulaziz Burns ([id number]) on 01/22/2019 4:20:14 PM Confirmed by Jose Walls ([id number]) on 01/27/2019 1:38:30 PM Procedure Note Interface, External Ris In - 01/27/2019 1:39 PM CDT Protocol Name Regvenkataosbrynn Time In Exercise Phase 00:01:00 Max. Systolic BP 89 mmHg Max Diastolic BP 55 mmHg Max Heart Rate 81 BPM Max Predicted Heart Rate 169 BPM Reason For Termination Predetermined end point Reason for Test Chest Pain Target HR Formula (220 - Age)*100% Arrhythmias none Resting ECG Normal sinus rhythm ST Changes No Significant Changes Overall Impression Indeterminate due to pharmacological stress Chest Pain none HR Response To Exercise BP Response To Exercise NTG ASA LIPITOR Heparin metoprolol Confirmed by fellow Abdulaziz Burns ([id number]) on 01/22/2019 4:20:14 PM Confirmed by Jose Walls ([id number]) on 01/27/2019 1:38:30 PM Performing Organization Address City/State/Zipcode Phone Number [facility] Transthoracic echo result (01/22/2019 1:56 PM CDT) Ejection Fraction [facility]ESSON CPA Narrative Performed At Transthoracic Echocardiography Report (TTE) [facility] Demographics Patient NameKELLEN WILSON Date of Study01/22/2019 AUGUSTINA Male Visit [id number] Room [id number] Number Date of 1965Referring PhysicianNate Brambila MD Age 53 year(s)[employer] Supervisor Jazz Tello [facility] [employer] Interpreting Sarah Smiley MD Physician Procedure Type of Study TTE procedure(MARISOL) Indications:Acute Chest Pain/ Suspected CAD. Clinical History HGB 15.5 HCT 46.3 % COPD, HLD, HX SMOKING, OBESITY Height: 63 inches Weight: 99.79 kg (220 lbs) BSA: 2.01 m^2 BMI: 38.97 kg/m^2 HR: 75 bpm BP: 110/75 mmHg Summary 1. The left ventricle is chamber size (by vol index) is normal (male - LVED vol - 34-74ml/m2). Borderline LVH noted. Abnormal septal motion of unclear etiology. Global LV systolic function normal . Estimated LVEF by qualitative assessment is normal (55-60%) . Normal diastolic function. 2. Normal right ventricle structure and function. S' 12 cm/sec. 3. LA size is normal . RA is mildly dilated. 4. A trace of tricuspid regurgitation. Unable to estimate peak systolic PA pressure; inadequate TR velocity signal. The estimated RA pressure by IVC dynamics 0- 5 mm Hg . 5. No evidence of pericardial effusion. Previous Study No prior studies available for comparison. Signature Findings Left Ventricle The left ventricle is chamber size (by vol index) is normal (male - LVED vol - 34-74ml/m2). Iain rderline LVH noted. Abnormal septal motion of un clear etiology. Global LV systolic function no rmal . Estimated LVEF by qualitative assessment is normal (55-60%) . No rmal diastolic function. Left AtriumLA size is normal . Right VentricleNormal right ventricle structure and function. S' 12 cm/sec. Right Atrium RA is mildly dilated. Aortic Valve Aortic valve is not well seen in the short axis vi ews. Unable to discern number of cusps. Mild AoV cu sp thickening. No evidence of aortic stenosis. No evidence of aortic regurgitation. Mitral Valve Mild thickening of the mitral leaflets. Trace MR. Tricuspid ValveTV structure is normal. A trace of tricuspid re gurgitation. Unable to estimate peak systolic PA pr essure; inadequate TR velocity signal. Pulmonic Valve Normal PV structure and function by limited views an d Doppler. AortaAortic root size (SInus of Valsalva diameter) is no rmal . PericardiumNo evidence of pericardial effusion. IVC/SVC/PA/PV/PleuralThe estimated RA pressure by IVC dynamics 0- 5 mm Hg . Chambers/Structures Left Atrium LA Dimension: 3.56 cmLA Area: 22.46 cm^2 LA Volume: 62 ml LA Vol. Index: 31 ml/m^2 Left Ventricle LVIDd: 4.65 cm LV Septum Diastolic: 1.2 cm LV PW Diastolic: 1.2 cm LVEDV Mcelroy's:114.52 ml LVESV Mcelroy's:49.5 ml LVEF Mcelroy's: 56.8 % LVEDVI: 57 ml/m^2 LVESVI: 25 ml/m^2 LVOT Diameter: 2.36 cm Right Atrium RA Area: 16.9 cm^2 RA Vol. (Sngl Plane): 46 ml Right Ventricle RV Diast Dim.: 3.7 cm TAPSE: 2.5 cm Aorta Ao Root S of Andie.: 3.48 cm Doppler/Quantitative Measurements Mitral Valve MV Peak E-Wave: 0.41 m/s MV Peak A-Wave: 0.63 m/s E/A Ratio: 0.65 Peak Gradient: 0.67 mmHg MV Juanito. Peak: Tissue Doppler E' Septal Velocity: 0.08 m/s E/E': 5 E' Lateral Velocity: 0.09 m/s LVOT Peak Velocity: 0.98 m/s Peak Gradient: 3.85 mmHg Mean Velocity: 0.57 m/s Mean Gradient: 1.68 mmHg LVOT Diameter: 2.36 cmLVOT VTI: 16.15 cm LVOT Area: 4.37 cm^2LVOT SV:70.61 ml LVOT CO: 5.3 l/minLVOT CI: 2.64 l/min/m^2 Procedure Note Interface, External Ris In - 01/25/2019 1:11 PM CDT Transthoracic Echocardiography Report (TTE) Demographics Patient Name KELLEN WILSON Date of Study 01/22/2019 AUGUSTINA Gender Male Visit Number [id number] Race Room Number 1406 Number Date of 1965 Referring Physician Nate Brambila MD Age 53 year(s) [employer] Supervisor Jazz Omer [facility] [employer] Interpreting Sarah Smiley MD Physician Procedure Type of Study TTE procedure(MARISOL) Indications:Acute Chest Pain/ Suspected CAD. Clinical History HGB 15.5 HCT 46.3 % COPD, HLD, HX SMOKING, OBESITY Height: 63 inches Weight: 99.79 kg (220 lbs) BSA: 2.01 m^2 BMI: 38.97 kg/m^2 HR: 75 bpm BP: 110/75 mmHg Summary 1. The left ventricle is chamber size (by vol index) is normal (male - LVED vol - 34-74ml/m2). Borderline LVH noted. Abnormal septal motion of unclear etiology. Global LV systolic function normal . Estimated LVEF by qualitative assessment is normal (55-60%) . Normal diastolic function. 2. Normal right ventricle structure and function. S' 12 cm/sec. 3. LA size is normal . RA is mildly dilated. 4. A trace of tricuspid regurgitation. Unable to estimate peak systolic PA pressure; inadequate TR velocity signal. The estimated RA pressure by IVC dynamics 0- 5 mm Hg . 5. No evidence of pericardial effusion. Previous Study No prior studies available for comparison. Signature Findings Left Ventricle The left ventricle is chamber size (by vol index) is normal (male - LVED vol - 34-74ml/m2). Borderline LVH noted. Abnormal septal motion of unclear etiology. Global LV systolic function normal . Estimated LVEF by qualitative assessment is normal (55-60%) . Normal diastolic function. Left Atrium LA size is normal . Right Ventricle Normal right ventricle structure and function. S' 12 cm/sec. Right Atrium RA is mildly dilated. Aortic Valve Aortic valve is not well seen in the short axis views. Unable to discern number of cusps. Mild AoV cusp thickening. No evidence of aortic stenosis. No evidence of aortic regurgitation. Mitral Valve Mild thickening of the mitral leaflets. Trace MR. Tricuspid Valve TV structure is normal. A trace of tricuspid regurgitation. Unable to estimate peak systolic PA pressure; inadequate TR velocity signal. Pulmonic Valve Normal PV structure and function by limited views and Doppler. Aorta Aortic root size (SInus of Valsalva diameter) is normal . Pericardium No evidence of pericardial effusion. IVC/SVC/PA/PV/Pleural The estimated RA pressure by IVC dynamics 0- 5 mm Hg . Chambers/Structures Left Atrium LA Dimension: 3.56 cm LA Area: 22.46 cm^2 LA Volume: 62 ml LA Vol. Index: 31 ml/m^2 Left Ventricle LVIDd: 4.65 cm LV Septum Diastolic: 1.2 cm LV PW Diastolic: 1.2 cm LVEDV Mcelroy's:114.52 ml LVESV Mcelroy's:49.5 ml LVEF Mcelroy's: 56.8 % LVEDVI: 57 ml/m^2 LVESVI: 25 ml/m^2 LVOT Diameter: 2.36 cm Right Atrium RA Area: 16.9 cm^2 RA Vol. (Sngl Plane): 46 ml Right Ventricle RV Diast Dim.: 3.7 cm TAPSE: 2.5 cm Aorta Ao Root S of Andie.: 3.48 cm Doppler/Quantitative Measurements Mitral Valve MV Peak E-Wave: 0.41 m/s MV Peak A-Wave: 0.63 m/s E/A Ratio: 0.65 Peak Gradient: 0.67 mmHg MV Juanito. Peak: Tissue Doppler E' Septal Velocity: 0.08 m/s E/E': 5 E' Lateral Velocity: 0.09 m/s LVOT Peak Velocity: 0.98 m/s Peak Gradient: 3.85 mmHg Mean Velocity: 0.57 m/s Mean Gradient: 1.68 mmHg LVOT Diameter: 2.36 cm LVOT VTI: 16.15 cm LVOT Area: 4.37 cm^2 LVOT SV:70.61 ml LVOT CO: 5.3 l/min LVOT CI: 2.64 l/min/m^2 Performing Organization Address City/State/Zipcode Phone Number [facility] Troponin I (01/22/2019 11:40 AM CDT)Only the most recent of5 resultswithin the time period is included. Troponin I <0.01 0.00 - 0.03 ng/mL [facility] Specimen Blood - Arm, Left Narrative Performed At Troponin I (TnI) levels must be interpreted [facility] in the context of the presenting symptoms and the clinical findings. Elevated TnI levels indicate myocardial damage, but are not specific for ischemic heart disease. Elevated TnI levels are seen in patients with other cardiac conditions (including myocarditis and congestive heart failure), and slight TnI elevations occur in patients with other conditions, including sepsis, renal failure, acidosis, acute neurological disease, and persistent tachyarrhythmia. Performing Organization Address [facility] Phone Number [address] [address] CENTER TSH/Free T4 If Indicated (01/22/2019 6:37 AM CDT) TSH 1.18 0.35 - 4.94 uIU/mL [facility] Specimen Blood Performing Organization Address [facility] Phone Number [address] [phone] CENTER aPTT (01/22/2019 6:37 AM CDT)Only the most recent of4 resultswithin the time period is included. PTT 53.6 (H) 22.5 - 36.0 seconds [facility] Specimen Blood Performing Organization Address [facility]/Zipcode Phone Number [address] [address] CENTER ABORH, manual (01/21/2019 7:40 AM CDT) ABO Grouping O [facility] Rh Factor POS [facility] Specimen Blood Performing Organization Address City/[facility]/Zipcode Phone Number [facility] [address] [place] [phone] Type and screen, automated ([facility] Lab) (01/21/2019 5:34 AM CDT) ABO/RH AUTOMATED (BEAKER) O POSITIVE [facility] Ab Scrn NEGATIVE [facility] Specimen Blood Performing Organization Address City/[facility]/Zipcode Phone Number [facility] [address] [place] [phone] B-type Natriuretic Factor (BNP) (01/21/2019 5:34 AM CDT) BNP <10 0 - 100 pg/mL [facility] Specimen Blood Performing Organization Address [facility] Phone Number [address] [address] CENTER Hemoglobin A1c (01/21/2019 5:34 AM CDT) Hemoglobin A1C 5.8 4.3 - 6.1 % [facility] Specimen Blood Performing Organization Address [facility] Phone Number [facility] [place], [place] [phone] Lipid panel (01/21/2019 5:34 AM CDT) Triglycerides 310Comment: Specimen slightly mg/dL [facility] Cholesterol 153Comment: Specimen slightly mg/dL [facility] HDL 24 mg/dL [facility] LDL Calculated 67 mg/dL [facility] Specimen Blood Narrative Performed At Triglyceride Reference Range: [facility] Low Risk <150 [id number] High Risk 200-499 Very High Risk>=500 Cholesterol Reference Range: Low Risk <200 [id number] High Risk>240 HDL Cholesterol Reference Range: Low Risk >=60 High Risk <40 LDL Cholesterol Reference Range: Optimal<100 Near [id number] Very High >=190 Performing Organization Address [facility]/Zipcode Phone Number [facility] [address] [place] [address] CENTER Comprehensive metabolic panel (01/21/2019 5:34 AM CDT) Protein, Total 6.1Comment: Specimen 6.0 - 8.3 gm/dL [facility] hemolyzed [facility] Albumin 3.4 (L)Comment: Specimen 3.5 - 5.0 g/dL [facility] slightly hemolyzed [facility] Alkaline Phosphatase 65 40 - 150 U/L [facility] Total Bilirubin 0.5Comment: Specimen 0.2 - 1.2 mg/dL [facility] hemolyzed [facility] Sodium 139 136 - 145 meq/L [facility] Potassium 3.4 (L)Comment: Specimen 3.5 - 5.1 meq/L [facility] hemolyzed [facility] Chloride 110 (H) 98 - 107 meq/L [facility] CO2 21 (L) 22 - 29 meq/L [facility] BUN 13 7 - 21 mg/dL [facility] Creatinine 0.81Comment: Specimen 0.57 - 1.25 mg/dL [facility] Glucose 126 (H) 70 - 105 mg/dL [facility] Calcium 8.0 (L) 8.4 - 10.2 mg/dL [facility] AST 20Comment: Specimen 5 - 34 U/L [facility] slightly hemolyzed [facility] ALT 43Comment: Specimen 6 - 55 U/L [facility] hemolyzed [facility] EGFR 100Comment: ESTIMATED mL/min/1.73 sq m [facility] GFR IS NOT ACCURATE [facility] CREATININE CLEARANCE IN PREDICTING GLOMERULAR FILTRATION RATE. ESTIMATED GFR IS NOT APPLICABLE FOR DIALYSIS PATIENTS. Specimen Blood Performing Organization Address City/State/Zipcode Phone Number [facility] [address] [place] [address] CENTER ECG 12 lead (01/21/2019 4:24 AM CDT) Narrative Performed At Ventricular Rate 74 BPM GE MUSE Atrial Rate 74 BPM P-R Interval 170 ms QRS Duration 80 ms Q-T Interval 402 ms QTC Calculation(Bazett) 446 ms P [place] 45 degrees R [place] 16 degrees T [place] 20 degrees Normal sinus rhythm Normal ECG No previous ECGs available Confirmed by MD Quiroga Roberto ([id number]) on 01/21/2019 9:45:28 AM Procedure Note Interface, External Ris In - 01/21/2019 9:45 AM CDT Ventricular Rate 74 BPM Atrial Rate 74 BPM P-R Interval 170 ms QRS Duration 80 ms Q-T Interval 402 ms QTC Calculation(Bazett) 446 ms P [place] 45 degrees R [place] 16 degrees T [place] 20 degrees Normal sinus rhythm Normal ECG No previous ECGs available Confirmed by MD Quiroga Roberto ([id number]) on 01/21/2019 9:45:28 AM Performing Organization Address City/State/Zipcode Phone Number [facility] MUSE after 02/09/2018 Advance Directives For more information, please contact:[facility] [place], [place] [phone] Code Status Date Activated Date Inactivated Comments Full Code 01/21/2019 4:51 AM 01/24/2019 4:06 PM This code status was determined by: Patient
--- OUTSIDE RECORDS SUMMARY | 2019-02-10 19:51 | XMS REPORT ---
:1965 [facility] [address] [place] [address] Care Team Providers Name Role Phone NATALIE CHEN Unavailable Unavailable Problems This patient has no known problems. Allergies, Adverse Reactions, Alerts This patient has no known allergies or adverse reactions. Medications This patient has no known medications. Results Test Description Test Time Test Comments Text Results Atomic Results Result Comments TISSUE EXAM 2019-01-25 08:52:00 Surgical Pathology Report Case: [id number] Authorizing Provider: Jigna Diallo MD Collected: 01/24/2019 0834 Ordering Location: [address] Received: 01/24/2019 1414 Service Pathologist: Leon Chacko MD Specimen: Stomach, biopsy A. STOMACH, RANDOM BIOPSIES: - CHRONIC GASTRITIS WITH FOCAL ACTIVITY (SEE COMMENT) - NEGATIVE FOR HELICOBACTER PYLORI ORGANISMS BY WARTHIN STARRY STAIN - NEGATIVE FOR INTESTINAL METAPLASIA, DYSPLASIA, MALIGNANCY Signing Pathologist Direct Phone Line: [phone] signed by Leon Chacko MD on 01/25/2019 at 8:52 [id number] pain Stomach biopsy The specimen is received in a formalin-filled container labeled with the patient's information and labeled "stomach biopsy" and consists of four fragments of regan-red soft tissue ranging from 0.1 to 0.5 cm, submitted entirely in A1. CG/ew Performed.The interpretation of this case included the use of immunohistochemistry or special stains. Immunohistochemistry technical testing was performed at [facility]ology [facility] where it was developed and its performance characteristics were determined. It has not been cleared or approved by the U.S. Food and Drug Administration. The FDA has determined that such clearance or approval is not necessary. The test is used for clinical purposes. It should not be regarded as investigational or for research. This laboratory is certified under the Clinical Laboratory Improvement Amendments of 1988 (CLIA-88) as qualified to perform high complexity clinical laboratory testing. MAGNESIUM 2019-01-24 07:34:00 Test Item Value Reference Range Comments MAGNESIUM (BEAKER) (test dbrx=174) 1.8 mg/dL 1.6-2.6 BASIC METABOLIC [id number] 07:34:00 Test Item Value Reference Range Comments SODIUM (BEAKER) (test 136 meq/L 136-145 kuea=689) POTASSIUM (BEAKER) (test 4.1 meq/L 3.5-5.1 ylfk=524) CHLORIDE (BEAKER) (test 105 meq/L 98-107 bjvi=796) CO2 (BEAKER) (test 23 meq/L 22-29 haku=586) BLOOD UREA NITROGEN 14 mg/dL 7-21 (BEAKER) (test stna=271) CREATININE (BEAKER) (test 0.84 mg/dL 0.57-1.25 iwsf=960) GLUCOSE RANDOM (BEAKER) 97 mg/dL 70-105 (test zhkt=629) CALCIUM (BEAKER) (test 9.4 mg/dL 8.4-10.2 qtrt=790) EGFR (BEAKER) (test 96 mL/min/1.73 sq m ESTIMATED GFR IS NOT unai=4445) ACCURATE CREATININE CLEARANCE IN PREDICTING GLOMERULAR FILTRATION RATE. ESTIMATED GFR IS NOT APPLICABLE FOR DIALYSIS PATIENTS. CBC W/PLT COUNT & AUTO [id number] 06:31:00 Test Item Value Reference Range Comments WHITE BLOOD CELL COUNT (BEAKER) (test vdoj=867) 9.1 K/ L 3.5-10.5 RED BLOOD CELL COUNT (BEAKER) (test hrss=037) 5.62 M/ L 4.63-6.08 HEMOGLOBIN (BEAKER) (test sjco=807) 15.6 GM/DL 13.7-17.5 HEMATOCRIT (BEAKER) (test zhqn=814) 47.4 % 40.1-51.0 MEAN CORPUSCULAR VOLUME (BEAKER) (test gjvu=624) 84.3 fL 79.0-92.2 MEAN CORPUSCULAR HEMOGLOBIN (BEAKER) (test 27.8 pg 25.7-32.2 kxrh=252) MEAN CORPUSCULAR HEMOGLOBIN CONC (BEAKER) (test 32.9 GM/DL 32.3-36.5 aybl=205) RED CELL DISTRIBUTION WIDTH (BEAKER) (test 13.9 % 11.6-14.4 grnm=488) PLATELET COUNT (BEAKER) (test iwrf=622) 177 K/CU MM 150-450 MEAN PLATELET VOLUME (BEAKER) (test sftu=596) 10.1 fL 9.4-12.4 NUCLEATED RED BLOOD CELLS (BEAKER) (test 0 /100 WBC 0-0 ggwa=395) NEUTROPHILS RELATIVE PERCENT (BEAKER) (test 52 % gipy=560) LYMPHOCYTES RELATIVE PERCENT (BEAKER) (test 38 % zcdi=314) MONOCYTES RELATIVE PERCENT (BEAKER) (test 8 % ilcr=913) EOSINOPHILS RELATIVE PERCENT (BEAKER) (test 3 % hnqo=190) BASOPHILS RELATIVE PERCENT (BEAKER) (test 0 % ctrs=789) NEUTROPHILS ABSOLUTE COUNT (BEAKER) (test 4.66 K/ L 1.78-5.38 xkuq=306) LYMPHOCYTES ABSOLUTE COUNT (BEAKER) (test 3.41 K/ L 1.32-3.57 ebdk=738) MONOCYTES ABSOLUTE COUNT (BEAKER) (test 0.70 K/ L 0.30-0.82 nsva=257) EOSINOPHILS ABSOLUTE COUNT (BEAKER) (test 0.23 K/ L 0.04-0.54 babh=342) BASOPHILS ABSOLUTE COUNT (BEAKER) (test 0.03 K/ L 0.01-0.08 kvgd=269) IMMATURE GRANULOCYTES-RELATIVE PERCENT (BEAKER) 0 % 0-1 (test iiku=9669) [id number] 05:51:00 Test Item Value Reference Range Comments MAGNESIUM (BEAKER) (test 2.2 mg/dL 1.6-2.6 Specimen slightly hemolyzed pfjv=741) BASIC METABOLIC [id number] 05:51:00 Test Item Value Reference Range Comments SODIUM (BEAKER) (test 136 meq/L 136-145 byve=131) POTASSIUM (BEAKER) (test 4.1 meq/L 3.5-5.1 Specimen slightly gasw=032) hemolyzed CHLORIDE (BEAKER) (test 105 meq/L 98-107 cfrr=719) CO2 (BEAKER) (test 21 meq/L 22-29 jhxm=529) BLOOD UREA NITROGEN 13 mg/dL 7-21 (BEAKER) (test tnie=244) CREATININE (BEAKER) (test 0.95 mg/dL 0.57-1.25 Specimen slightly itfo=144) hemolyzed GLUCOSE RANDOM (BEAKER) 107 mg/dL 70-105 (test drcw=746) CALCIUM (BEAKER) (test 9.4 mg/dL 8.4-10.2 pfjm=718) EGFR (BEAKER) (test 84 mL/min/1.73 sq m ESTIMATED GFR IS NOT gbvy=7045) ACCURATE CREATININE CLEARANCE IN PREDICTING GLOMERULAR FILTRATION RATE. ESTIMATED GFR IS NOT APPLICABLE FOR DIALYSIS PATIENTS. CBC W/PLT COUNT & AUTO [id number] 05:35:00 Test Item Value Reference Range Comments WHITE BLOOD CELL COUNT (BEAKER) (test sglj=152) 9.3 K/ L 3.5-10.5 RED BLOOD CELL COUNT (BEAKER) (test yvwq=454) 5.46 M/ L 4.63-6.08 HEMOGLOBIN (BEAKER) (test ltpo=714) 15.0 GM/DL 13.7-17.5 HEMATOCRIT (BEAKER) (test jwnl=545) 46.4 % 40.1-51.0 MEAN CORPUSCULAR VOLUME (BEAKER) (test ubph=123) 85.0 fL 79.0-92.2 MEAN CORPUSCULAR HEMOGLOBIN (BEAKER) (test 27.5 pg 25.7-32.2 jvta=721) MEAN CORPUSCULAR HEMOGLOBIN CONC (BEAKER) (test 32.3 GM/DL 32.3-36.5 mpqp=886) RED CELL DISTRIBUTION WIDTH (BEAKER) (test 14.0 % 11.6-14.4 bflu=154) PLATELET COUNT (BEAKER) (test qetv=007) 185 K/CU MM 150-450 MEAN PLATELET VOLUME (BEAKER) (test gssl=452) 10.5 fL 9.4-12.4 NUCLEATED RED BLOOD CELLS (BEAKER) (test 0 /100 WBC 0-0 typx=471) NEUTROPHILS RELATIVE PERCENT (BEAKER) (test 56 % dhzm=392) LYMPHOCYTES RELATIVE PERCENT (BEAKER) (test 33 % kywd=276) MONOCYTES RELATIVE PERCENT (BEAKER) (test 8 % duvm=306) EOSINOPHILS RELATIVE PERCENT (BEAKER) (test 2 % ruhq=472) BASOPHILS RELATIVE PERCENT (BEAKER) (test 0 % khwy=548) NEUTROPHILS ABSOLUTE COUNT (BEAKER) (test 5.13 K/ L 1.78-5.38 cmmv=695) LYMPHOCYTES ABSOLUTE COUNT (BEAKER) (test 3.06 K/ L 1.32-3.57 pnpr=008) MONOCYTES ABSOLUTE COUNT (BEAKER) (test 0.77 K/ L 0.30-0.82 ikwl=989) EOSINOPHILS ABSOLUTE COUNT (BEAKER) (test 0.22 K/ L 0.04-0.54 ndno=928) BASOPHILS ABSOLUTE COUNT (BEAKER) (test 0.02 K/ L 0.01-0.08 mgiw=907) IMMATURE GRANULOCYTES-RELATIVE PERCENT (BEAKER) 1 % 0-1 (test wmfz=3523) PET, CARDIAC PERFUSION MULTIPLE STUDIES, REST AND [id number] 16:26: 00Reason for exam:->chest painFINAL REPORT PROCEDURE: MYOCARDIAL PERFUSION PET IMAGING (Rest/Stress) [[id number]] INDICATION: Chest pain CARDIOVASCULAR PROFILE:Symptoms: Chest pain, anginaCAD History: NoneRisk Factors : Obesity (BMI 39.1), dyslipidemia, tobaccoMedications: Aspirin, heparin, atorvastatin, metoprolol, nitroglycerin STRESS PROTOCOL:Pharmacologic stress was achieved with a 10-second intravenous infusion of regadenoson 0.4 mg. IMAGING PROTOCOL:- Limited low-dose CT imaging was performed for attenuation correction.- 40.2 mCi of Rb-82 chloride was injected intravenously at rest, and PET images were obtained.- Then, 40.0 mCi of Rb-82 chloride was injected intravenously at peak stress, and PET images were obtained. REST FINDINGS:HR: 81 /minBP: 102/48 mmHgPrelim. EKG: Normal sinus rhythm.Perfusion: Normal.Wall Motion: Normal (LVEF 51%).LV Volume: Normal.RV Volume: Normal. STRESS FINDINGS: HR: 81 /min (47% of MPHR)BP: 89/55 mmHgPrelim. EKG: No ischemic changes.Symptoms : None (treatment not required).Perfusion: Normal.Wall Motion: Normal (LVEF 66%) .LV Volume: Unchanged from rest. IMPRESSION:1. Normal study.2. Normal myocardial perfusion.3. Normal global LV function, which does not deteriorate with stress.4. Normal extracardiac tracer distribution.5. Low-risk findings.6. There is no prior study for comparison. Signed: Loida Dhaliwalort Verified Date/Time: 01/22/2019 16:26:04 Reading Location: [address] [facility] Reading Room TROPONIN [id number] 12:20:00 Test Item Value Reference Range Comments TROPONIN I (BEAKER) (test hubp=172) < ng/mL 0.00-0.03 Troponin I (TnI) levels must be interpreted in the context of the presenting symptoms and the clinical findings. Elevated TnI levels indicate myocardial damage, but are not specific for ischemic heart disease. Elevated TnI levels are seen in patients with other cardiac conditions (including myocarditis and congestive heart failure), and slight TnI elevations occur in patients with other conditions, including sepsis, renal failure, acidosis, acute neurological disease, and persistent tachyarrhythmia.TSH/FREE T4 IF [id number] 07:27 :00 Test Item Value Reference Range Comments THYROID STIMULATING HORMONE (BEAKER) (test 1.18 uIU/mL 0.35-4.94 jpte=391) TROPONIN [id number] 07:15:00 Test Item Value Reference Range Comments TROPONIN I (BEAKER) (test ajxk=547) < ng/mL 0.00-0.03 Troponin I (TnI) levels must be interpreted in the context of the presenting symptoms and the clinical findings. Elevated TnI levels indicate myocardial damage, but are not specific for ischemic heart disease. Elevated TnI levels are seen in patients with other cardiac conditions (including myocarditis and congestive heart failure), and slight TnI elevations occur in patients with other conditions, including sepsis, renal failure, acidosis, acute neurological disease, and persistent tachyarrhythmia.BASIC METABOLIC [id number] 07:10:00 Test Item Value Reference Range Comments SODIUM (BEAKER) (test 136 meq/L 136-145 tqpo=706) POTASSIUM (BEAKER) (test 4.5 meq/L 3.5-5.1 Specimen slightly gbfl=570) hemolyzed CHLORIDE (BEAKER) (test 105 meq/L 98-107 ewmp=690) CO2 (BEAKER) (test 23 meq/L 22-29 ixis=675) BLOOD UREA NITROGEN 10 mg/dL 7-21 (BEAKER) (test bppp=708) CREATININE (BEAKER) (test 0.89 mg/dL 0.57-1.25 Specimen slightly wqku=817) hemolyzed GLUCOSE RANDOM (BEAKER) 111 mg/dL 70-105 (test fgvt=712) CALCIUM (BEAKER) (test 9.2 mg/dL 8.4-10.2 etxb=041) EGFR (BEAKER) (test 90 mL/min/1.73 sq m ESTIMATED GFR IS NOT mzcx=6328) ACCURATE CREATININE CLEARANCE IN PREDICTING GLOMERULAR FILTRATION RATE. ESTIMATED GFR IS NOT APPLICABLE FOR DIALYSIS PATIENTS. [id number] 07:07:00 Test Item Value Reference Range Comments MAGNESIUM (BEAKER) (test 2.5 mg/dL 1.6-2.6 Specimen slightly hemolyzed imra=245) [id number] 07:01:00 Test Item Value Reference Range Comments PARTIAL THROMBOPLASTIN TIME (BEAKER) (test 53.6 seconds 22.5-36.0 dvac=513) CBC W/PLT COUNT & AUTO [id number] 06:54:00 Test Item Value Reference Range Comments WHITE BLOOD CELL COUNT (BEAKER) (test yvgr=470) 8.7 K/ L 3.5-10.5 RED BLOOD CELL COUNT (BEAKER) (test qgow=531) 5.50 M/ L 4.63-6.08 HEMOGLOBIN (BEAKER) (test cnha=773) 15.5 GM/DL 13.7-17.5 HEMATOCRIT (BEAKER) (test xmqe=699) 46.3 % 40.1-51.0 MEAN CORPUSCULAR VOLUME (BEAKER) (test prsq=350) 84.2 fL 79.0-92.2 MEAN CORPUSCULAR HEMOGLOBIN (BEAKER) (test 28.2 pg 25.7-32.2 krkt=189) MEAN CORPUSCULAR HEMOGLOBIN CONC (BEAKER) (test 33.5 GM/DL 32.3-36.5 ilko=529) RED CELL DISTRIBUTION WIDTH (BEAKER) (test 14.1 % 11.6-14.4 dipq=414) PLATELET COUNT (BEAKER) (test yllx=524) 198 K/CU MM 150-450 MEAN PLATELET VOLUME (BEAKER) (test aqix=599) 10.4 fL 9.4-12.4 NUCLEATED RED BLOOD CELLS (BEAKER) (test 0 /100 WBC 0-0 ddxg=700) NEUTROPHILS RELATIVE PERCENT (BEAKER) (test 50 % yjkg=328) LYMPHOCYTES RELATIVE PERCENT (BEAKER) (test 39 % irlg=903) MONOCYTES RELATIVE PERCENT (BEAKER) (test 7 % dlpo=536) EOSINOPHILS RELATIVE PERCENT (BEAKER) (test 3 % igqr=783) BASOPHILS RELATIVE PERCENT (BEAKER) (test 0 % xulp=222) NEUTROPHILS ABSOLUTE COUNT (BEAKER) (test 4.35 K/ L 1.78-5.38 qqjz=624) LYMPHOCYTES ABSOLUTE COUNT (BEAKER) (test 3.43 K/ L 1.32-3.57 sgve=581) MONOCYTES ABSOLUTE COUNT (BEAKER) (test 0.65 K/ L 0.30-0.82 ncww=068) EOSINOPHILS ABSOLUTE COUNT (BEAKER) (test 0.26 K/ L 0.04-0.54 ihzv=429) BASOPHILS ABSOLUTE COUNT (BEAKER) (test 0.03 K/ L 0.01-0.08 yhtf=186) IMMATURE GRANULOCYTES-RELATIVE PERCENT (BEAKER) 0 % 0-1 (test llwp=8939) TROPONIN [id number] 21:31:00 Test Item Value Reference Range Comments TROPONIN I (BEAKER) (test nvtm=690) < ng/mL 0.00-0.03 Troponin I (TnI) levels must be interpreted in the context of the presenting symptoms and the clinical findings. Elevated TnI levels indicate myocardial damage, but are not specific for ischemic heart disease. Elevated TnI levels are seen in patients with other cardiac conditions (including myocarditis and congestive heart failure), and slight TnI elevations occur in patients with other conditions, including sepsis, renal failure, acidosis, acute neurological disease, and persistent tachyarrhythmia.HEMOGLOBIN [id number] 16:43:00 Test Item Value Reference Range Comments HEMOGLOBIN A1C (BEAKER) (test fvfk=627) 5.8 % 4.3-6.1 TROPONIN [id number] 13:42:00 Test Item Value Reference Range Comments TROPONIN I (BEAKER) (test alvc=058) < ng/mL 0.00-0.03 Troponin I (TnI) levels must be interpreted in the context of the presenting symptoms and the clinical findings. Elevated TnI levels indicate myocardial damage, but are not specific for ischemic heart disease. Elevated TnI levels are seen in patients with other cardiac conditions (including myocarditis and congestive heart failure), and slight TnI elevations occur in patients with other conditions, including sepsis, renal failure, acidosis, acute neurological disease, and persistent tachyarrhythmia.[id number] 13:37:00 Test Item Value Reference Range Comments PARTIAL THROMBOPLASTIN TIME (BEAKER) (test 53.8 seconds 22.5-36.0 hect=014) [id number] 08:07:00 Test Item Value Reference Range Comments PARTIAL THROMBOPLASTIN TIME (BEAKER) (test 52.7 seconds 22.5-36.0 jgth=704) CBC W/PLT COUNT & AUTO [id number] 06:33:00 Test Item Value Reference Range Comments WHITE BLOOD CELL COUNT (BEAKER) (test qluw=703) 7.9 K/ L 3.5-10.5 RED BLOOD CELL COUNT (BEAKER) (test ndnh=027) 5.46 M/ L 4.63-6.08 HEMOGLOBIN (BEAKER) (test cgop=731) 15.1 GM/DL 13.7-17.5 HEMATOCRIT (BEAKER) (test xbpu=699) 46.3 % 40.1-51.0 MEAN CORPUSCULAR VOLUME (BEAKER) (test dkir=121) 84.8 fL 79.0-92.2 MEAN CORPUSCULAR HEMOGLOBIN (BEAKER) (test 27.7 pg 25.7-32.2 yfgw=463) MEAN CORPUSCULAR HEMOGLOBIN CONC (BEAKER) (test 32.6 GM/DL 32.3-36.5 seri=250) RED CELL DISTRIBUTION WIDTH (BEAKER) (test 14.2 % 11.6-14.4 ihyz=640) PLATELET COUNT (BEAKER) (test pczs=731) 185 K/CU MM 150-450 MEAN PLATELET VOLUME (BEAKER) (test dvbv=591) 10.2 fL 9.4-12.4 NUCLEATED RED BLOOD CELLS (BEAKER) (test 0 /100 WBC 0-0 orik=394) NEUTROPHILS RELATIVE PERCENT (BEAKER) (test 42 % jhck=441) LYMPHOCYTES RELATIVE PERCENT (BEAKER) (test 46 % nebe=034) MONOCYTES RELATIVE PERCENT (BEAKER) (test 8 % anzd=719) EOSINOPHILS RELATIVE PERCENT (BEAKER) (test 3 % bclp=660) BASOPHILS RELATIVE PERCENT (BEAKER) (test 0 % kgwj=389) NEUTROPHILS ABSOLUTE COUNT (BEAKER) (test 3.31 K/ L 1.78-5.38 mvxb=932) LYMPHOCYTES ABSOLUTE COUNT (BEAKER) (test 3.62 K/ L 1.32-3.57 rcyg=841) MONOCYTES ABSOLUTE COUNT (BEAKER) (test 0.65 K/ L 0.30-0.82 itdc=774) EOSINOPHILS ABSOLUTE COUNT (BEAKER) (test 0.24 K/ L 0.04-0.54 hgix=099) BASOPHILS ABSOLUTE COUNT (BEAKER) (test 0.03 K/ L 0.01-0.08 iogu=795) IMMATURE GRANULOCYTES-RELATIVE PERCENT (BEAKER) 0 % 0-1 (test nrnl=9010) B-TYPE NATRIURETIC FACTOR (BNP)2019-01-21 06:20:00 Test Item Value Reference Range Comments B-TYPE NATRIURETIC PEPTIDE (BEAKER) (test ppbr=356) < pg/mL 0-100 TROPONIN [id number] 06:19:00 Test Item Value Reference Range Comments TROPONIN I (BEAKER) (test tqin=928) < ng/mL 0.00-0.03 Troponin I (TnI) levels must be interpreted in the context of the presenting symptoms and the clinical findings. Elevated TnI levels indicate myocardial damage, but are not specific for ischemic heart disease. Elevated TnI levels are seen in patients with other cardiac conditions (including myocarditis and congestive heart failure), and slight TnI elevations occur in patients with other conditions, including sepsis, renal failure, acidosis, acute neurological disease, and persistent tachyarrhythmia.[id number] 06:15:00 Test Item Value Reference Range Comments PARTIAL THROMBOPLASTIN TIME (BEAKER) (test > seconds 22.5-36.0 ygvn=782) LIPID [id number] 06:12:00 Test Item Value Reference Range Comments TRIGLYCERIDES (BEAKER) (test 310 mg/dL Specimen slightly hemolyzed kysm=998) CHOLESTEROL (BEAKER) (test 153 mg/dL Specimen slightly hemolyzed ekit=456) HDL CHOLESTEROL (BEAKER) (test 24 mg/dL ecqk=360) LDL CHOLESTEROL CALCULATED 67 mg/dL (BEAKER) (test eahu=746) Triglyceride Reference Range: Low Risk <150 Borderline 150- 199 High Risk 200-499 Very High Risk >=500Cholesterol Reference Range: Low Risk <200 Borderline 200-239 High Risk > 240HDL Cholesterol Reference Range: Low Risk >=60 High Risk <40LDL Cholesterol Reference Range: Optimal <100 Near Optimal 100-129 Borderline 130-159 High 160-189 Very High [id number] 06:11:00 Test Item Value Reference Range Comments MAGNESIUM (BEAKER) (test 1.9 mg/dL 1.6-2.6 Specimen slightly hemolyzed fdqe=062) COMPREHENSIVE METABOLIC [id number] 06:11:00 Test Item Value Reference Range Comments TOTAL PROTEIN (BEAKER) 6.1 gm/dL 6.0-8.3 Specimen slightly (test siml=609) hemolyzed ALBUMIN (BEAKER) (test 3.4 g/dL 3.5-5.0 Specimen slightly xxih=6126) hemolyzed ALKALINE PHOSPHATASE 65 U/L 40-150 (BEAKER) (test vsnx=010) BILIRUBIN TOTAL (BEAKER) 0.5 mg/dL 0.2-1.2 Specimen slightly (test yevh=726) hemolyzed SODIUM (BEAKER) (test 139 meq/L 136-145 dhjx=320) POTASSIUM (BEAKER) (test 3.4 meq/L 3.5-5.1 Specimen slightly aejz=910) hemolyzed CHLORIDE (BEAKER) (test 110 meq/L 98-107 vvsd=944) CO2 (BEAKER) (test 21 meq/L 22-29 lhav=075) BLOOD UREA NITROGEN 13 mg/dL 7-21 (BEAKER) (test awyv=623) CREATININE (BEAKER) (test 0.81 mg/dL 0.57-1.25 Specimen slightly tffs=978) hemolyzed GLUCOSE RANDOM (BEAKER) 126 mg/dL 70-105 (test ihws=537) CALCIUM (BEAKER) (test 8.0 mg/dL 8.4-10.2 hzey=043) AST (SGOT) (BEAKER) (test 20 U/L 5-34 Specimen slightly neqg=616) hemolyzed ALT (SGPT) (BEAKER) (test 43 U/L 6-55 Specimen slightly adwd=082) hemolyzed EGFR (BEAKER) (test 100 mL/min/1.73 sq ESTIMATED GFR IS NOT olbt=2703) m ACCURATE CREATININE CLEARANCE IN PREDICTING GLOMERULAR FILTRATION RATE. ESTIMATED GFR IS NOT APPLICABLE FOR DIALYSIS PATIENTS.
[2019-02-10 20:45] LABS: Absolute Lymphocytes (CBC) 4.1 K/uL (0.7-4.9); Absolute Monocytes 0.7 K/uL (0.1-1.3); Absolute Neutrophil 6.6 K/uL (1.8-8.0); Basophils % 0.9 % (0-1.3); Eosinophils % 1.9 % (0-4.4); Hematocrit 45.8 % (39.6-49.0); Lymphocytes % 34.7 % (15.3-44.8); MPV 8.9 fL (7.6-11.3); Monocytes % 6.4 % (3.3-12.3); RBC Red Blood Cell Count 5.46 M/uL (4.33-5.43)
[2019-02-10] MEDS ORDERED: NA CHLORIDE 0.9% 250 ML ONE (20:53)
[2019-02-10] MEDS ORDERED: VANCOMYCIN 1 GM/VIAL ONE (20:53)
[2019-02-10 21:14] LABS: Potassium 3.9 mmol/L (3.5-5.1)
--- NOTE | 2019-02-10 21:38 | ER ---
Nurse's Notes [facility] Name: Blake Wilson Age: 53 yrs Sex: Male : 1965 Arrival Date: 02/10/2019 Time: 19:48 Bed 5 Private MD: Laura Gibson C Diagnosis: Cellulitis left hand Presentation: 02/10 20:01 Presenting complaint: Patient states: he was bit by a raccoon approx 1 month ago in the meantime he collapsed at work and was sent to [facility] where he was given a series of shots possibly rabies vaccine he was discharged from there 2 weeks ago and 4 days ago his left hand became swollen, painful, hot in the area or the original raccoon bite. Transition of care: patient was not received from another setting of care. Onset of symptoms was February 06, 2019. Risk Assessment: Do you want to hurt yourself or someone else? Patient reports no desire to harm self or others. Initial Sepsis Screen: Does the patient meet any 2 criteria? No. Patient's initial sepsis screen is negative. Does the patient have a suspected source of infection? No. Patient's initial sepsis screen is negative. Care prior to arrival: None. 20:01 Method Of Arrival: Ambulatory bb 20:01 Acuity: SANGEETA 2 bb Historical: - Allergies: 20:05 No Known Allergies; bb - Home Meds: 20:05 Prevacid Oral [Active]; bb - PMHx: 20:05 COPD; gastric ulcer; bb - PSHx: 20:05 Knee surgery; Hernia repair; bb - Immunization history:: Adult Immunizations up to date. - Social history:: Smoking status: Patient/guardian denies using tobacco, Patient/guardian denies using alcohol, street drugs. - Ebola Screening: : No symptoms or risks identified at this time. Screenin:13 Abuse screen: Denies threats or abuse. Nutritional screening: No deficits noted. ea Tuberculosis screening: No symptoms or risk factors identified. Fall Risk None identified. Assessment: 20:09 General: Appears in no apparent distress. Behavior is calm, cooperative, appropriate ea for age. Pain: Complains of pain in dorsal aspect of distal phalanx of left ring finger, dorsal aspect of middle phalanx of left ring finger, dorsal aspect of proximal phalanx of left ring finger, dorsum of left hand and left ring fingernail. Neuro: Level of Consciousness is awake, alert, obeys commands, Oriented to person, place, time, situation. Cardiovascular: Patient's skin is warm and dry. Respiratory: Airway is patent Respiratory effort is even, unlabored, Respiratory pattern is regular, symmetrical. Derm: Skin is pink, warm \T\ dry. Musculoskeletal: Swelling present in dorsal aspect of distal phalanx of left ring finger, dorsal aspect of middle phalanx of left ring finger, dorsal aspect of proximal phalanx of left ring finger and left ring fingernail. 21:01 Reassessment: Patient appears in no apparent distress at this time. Patient and/or tl2 family updated on plan of care and expected duration. Pain level reassessed. Patient is alert, oriented x 3, equal unlabored respirations, skin warm/dry/pink. antibiotics infusing, awaiting lab results. 21:39 Reassessment: Will discharge after vanc infusion is complete. tl2 Vital Signs: 20:05 BP 134 / 85; Pulse 100; Resp 16 S; Temp 98.5(O); Pulse Ox 97% on R/A; Weight 100.24 kg bb (R); Height 5 ft. 3 in. (160.02 cm) (R); Pain 9/10; 22:24 BP 114 / 66; Pulse 74; Resp 18; Pulse Ox 99% on R/A; tl2 20:05 Body Mass Index 39.15 (100.24 kg, 160.02 cm) bb ED Course: 19:48 Patient arrived in ED. am2 19:49 Laura Gibson FNP is Private Physician. am2 20:03 Kaiser Thomas MD is Attending Physician. pkl 20:04 Triage completed. bb 20:05 Arm band placed on Patient placed in an exam room, on a stretcher, on pulse oximetry. bb 20:09 Iram Nguyen, DARIUS is Primary Nurse. ea 20:13 Patient has correct armband on for positive identification. Placed in gown. Bed in low ea position. Call light in reach. 20:39 Inserted saline lock: 22 gauge in right antecubital area, using aseptic technique. tl2 Blood collected. 22:24 No provider procedures requiring assistance completed. IV discontinued, intact, tl2 bleeding controlled, No redness/swelling at site. Pressure dressing applied. Administered Medications: 20:48 Drug: vancoMYCIN 1 grams Route: IVPB; Infused Over: 2 hrs; Site: right antecubital; tl2 22:22 Follow up: IV Status: Completed infusion; IV Intake: 250ml tl2 Intake: 22:22 IV: 250ml; Total: 250ml. tl2 Outcome: 21:37 Discharge ordered by . pkl 22:24 Discharged to home ambulatory, with family. tl2 22:24 Condition: stable 22:24 Discharge instructions given to patient, Instructed on discharge instructions, follow up and referral plans. medication usage, Demonstrated understanding of instructions, follow-up care, medications, Prescriptions given X 1. 22:28 Patient left the ED. tl2 Signatures: Kaiser Thomas MD MD pkl Daisy Miranda, RN RN Cristiane Limon RN RN tl2 Megha Alvarez am2 Iram Nguyen RN RN zak
--- NOTE | 2019-02-10 21:38 | EDPHYS ---
Physician Documentation [facility] Name: Blake Wilson Age: 53 yrs Sex: Male : 1965 Arrival Date: 02/10/2019 Time: 19:48 Bed 5 Private MD: Laura Gibson C ED Physician [facility] HPI: 02/10 20:22 This 53 yrs old Male presents to ER via Ambulatory with complaints of Hand pkl Swelling - after injections. 20:22 The patient or guardian reports pain, swelling. The complaints affect the left hand pkl diffusely. Onset: The symptoms/episode began/occurred 4 day(s) ago. Patient was bitten by unknown animal ( possible raccoon ) about 1 month ago and was transferred to [facility] where he was given a series of shots ( possibly rabies vaccine ) Patient started complaining of pain and swelling left hand where the original bite was 4 days ago.. Historical: - Allergies: 20:05 No Known Allergies; bb - Home Meds: 20:05 Prevacid Oral [Active]; bb - PMHx: 20:05 COPD; gastric ulcer; bb - PSHx: 20:05 Knee surgery; Hernia repair; bb - Immunization history:: Adult Immunizations up to date. - Social history:: Smoking status: Patient/guardian denies using tobacco, Patient/guardian denies using alcohol, street drugs. - Ebola Screening: : No symptoms or risks identified at this time. ROS: 20:22 Eyes: Negative for injury, pain, redness, and discharge, ENT: Negative for injury, pkl pain, and discharge, Neck: Negative for injury, pain, and swelling, Cardiovascular: Negative for chest pain, palpitations, and edema, Respiratory: Negative for shortness of breath, cough, wheezing, and pleuritic chest pain, Abdomen/GI: Negative for abdominal pain, nausea, vomiting, diarrhea, and constipation, Back: Negative for injury and pain, : Negative for injury, bleeding, discharge, and swelling, Neuro: Negative for headache, weakness, numbness, tingling, and seizure. 20:22 MS/extremity: Positive for swelling, of the left hand. 20:22 Neuro: Negative for altered mental status. Exam: 20:22 Head/Face: Normocephalic, atraumatic. Eyes: Pupils equal round and reactive to light, pkl extra-ocular motions intact. Lids and lashes normal. Conjunctiva and sclera are non-icteric and not injected. Cornea within normal limits. Periorbital areas with no swelling, redness, or edema. ENT: Nares patent. No nasal discharge, no septal abnormalities noted. Tympanic membranes are normal and external auditory canals are clear. Oropharynx with no redness, swelling, or masses, exudates, or evidence of obstruction, uvula midline. Mucous membranes moist. Neck: Trachea midline, no thyromegaly or masses palpated, and no cervical lymphadenopathy. Supple, full range of motion without nuchal rigidity, or vertebral point tenderness. No Meningismus. Chest/axilla: Normal chest wall appearance and motion. Nontender with no deformity. No lesions are appreciated. Cardiovascular: Regular rate and rhythm with a normal S1 and S2. No gallops, murmurs, or rubs. Normal PMI, no JVD. No pulse deficits. Respiratory: Lungs have equal breath sounds bilaterally, clear to auscultation and percussion. No rales, rhonchi or wheezes noted. No increased work of breathing, no retractions or nasal flaring. Abdomen/GI: Soft, non-tender, with normal bowel sounds. No distension or tympany. No guarding or rebound. No evidence of tenderness throughout. Back: No spinal tenderness. No costovertebral tenderness. Full range of motion. Skin: Warm, dry with normal turgor. Normal color with no rashes, no lesions, and no evidence of cellulitis. Neuro: Awake and alert, GCS 15, oriented to person, place, time, and situation. Cranial nerves II-XII grossly intact. Motor strength 5/5 in all extremities. Sensory grossly intact. Cerebellar exam normal. Normal gait. 20:22 Musculoskeletal/extremity: Extremities: grossly normal except: noted in the left hand: slightly swollen and tender where original bite was. Vital Signs: 20:05 BP 134 / 85; Pulse 100; Resp 16 S; Temp 98.5(O); Pulse Ox 97% on R/A; Weight 100.24 kg bb (R); Height 5 ft. 3 in. (160.02 cm) (R); Pain 9/10; 22:24 BP 114 / 66; Pulse 74; Resp 18; Pulse Ox 99% on R/A; tl2 20:05 Body Mass Index 39.15 (100.24 kg, 160.02 cm) bb MDM: 20:03 Patient medically screened. pkl 21:36 Data reviewed: vital signs, nurses notes, lab test result(s). pkl 21:38 ED course: Discussed lab. results with patient. Advised to follow up his Infectious pkl Disease doctor in 2 to 3 days. Patient understood instructions. 02/10 20:21 Order name: CBC with Diff; Complete Time: 21:31 pkl 02/10 20:21 Order name: Chem 7; Complete Time: 21:31 pkl 02/10 20:21 Order name: Sed Rate; Complete Time: :31 pkl 02/10 20:21 Order name: Blood Culture Adult (2) pkl 02/10 20:21 Order name: Saline Lock; Complete Time: 20:39 pkl Administered Medications: 20:48 Drug: vancoMYCIN 1 grams Route: IVPB; Infused Over: 2 hrs; Site: right antecubital; tl2 22:22 Follow up: IV Status: Completed infusion; IV Intake: 250ml tl2 Disposition: 02/10/19 21:37 Discharged to Home. Impression: Cellulitis left hand. - Condition is Stable. - Prescriptions for Augmentin 875- 125 mg Oral Tablet - take 1 tablet by ORAL route every 12 hours for 7 days; 14 tablet. - Medication Reconciliation Form, Thank You Letter, Antibiotic Education, Prescription Opioid Use form. - Follow up: Private Physician; When: 2 - 3 days; Reason: Re-evaluation by your physician. - Problem is new. - Symptoms have improved. Signatures: Dispatcher [facility] EDKY [facility] Thomas MD MD pkl Daisy Miranda, RN RN Cristiane Limon, RN RN tl2 Corrections: (The following items were deleted from the chart) 22:28 21:37 02/10/2019 21:37 Discharged to Home. Impression: Cellulitis left hand. Condition tl2 is Stable. Forms are Medication Reconciliation Form, Thank You Letter, Antibiotic Education, Prescription Opioid Use. Follow up: Private Physician; When: 2 - 3 days; Reason: Re-evaluation by your physician. Problem is new. Symptoms have improved. pkl
[2019-02-10 22:45] VITALS: TEMP 98.5
[2019-02-10 22:46] VITALS: BP 114/66; O2SAT 99
== END 2019-02-10 22:28 | disposition home or self-care (01) ==
LOC: ER 19:48
DX: L03.114 Cellulitis of left upper limb (principal); J44.9 Chronic obstructive pulmonary disease, unspecified
CPT/HCPCS: 36415; 80048; 85025; 85652; 87040; 96365; 96366; 99284

== ENCOUNTER 2022-03-04 13:34 | Emergency (ER) | payer SELFPAY ==
--- OUTSIDE RECORDS SUMMARY | 2022-03-04 13:38 | XMS REPORT | Continuity of Care Document ---
:1965 Author Organization [facility] t Address [address] [place] [place] [address] Care Team Providers Name Role Phone Bertha KOEHLER Primary Care Physician Unavailable QUYNH FLORES Attending Clinician Unavailable Doctor Unassigned, Name Attending Clinician Unavailable Lab, Fam Pob I Attending Clinician Unavailable Dilan SANCHEZP Attending Clinician DILAN Attending Clinician Unavailable David MCCOY E Attending Clinician Levi Birmingham Attending Clinician Tony Attending Clinician Susu Hernández NP Attending Clinician Anat VILLANUEVA Attending Clinician Susu HERNÁNDEZ Attending Clinician Unavailable Dwain CHNE Attending Clinician Unavailable Anat VILLANUEVA Admitting Clinician Dwain CHEN Admitting Clinician Unavailable Payers Payer Name Policy Type Policy Number Effective Date Expiration Date [facility] [id number] 2015 CHOICE MEDICAID 00:00:00 Problems Condition Condition Condition Status Onset Resolution Last Treating Co mments Source Name Details Category Date Date Treatment Clinician Date COVID-19 COVID-19 Disease Active Unive rs virus virus 9-08 [place] [facility] Chest Chest Disease Active Univers pain, rule pain, rule 9-07 it y of out acute out acute 00:00: Jose F plasencia myocardial myocardial 00 Me dical infarction infarction Br anch Obesity Obesity Disease Active Univers (BMI (BMI 9-07 ity of 30-39.9) 30-39.9) 00:00: [address] Unstable [facility] [address] Chest pain Chest pain Disease Active U nivers 4-25 ity of 00:00: [address] HLD HLD Disease Active Univers (hyperlipi (hyperlipi 4-25 it y of demia) demia) 00:00: [address] COPD COPD Disease Active Univers (chronic (chronic 4-25 [place] obstructiv [place]iv [place] Medical pulmonary pulmonary Bran ch disease) disease) Family Family Disease Active Univers history of history of 4-25 it y of premature premature 00:00: Jose F plasencia CAD CAD 00 [facility] Allergies, Adverse Reactions, Alerts Allergy Allergy Status Severity Reaction(s) Onset Inactive Treating Comm ents Source Name Type Date Date Clinician NO KNOWN Drug Active Univers ALLERGIE Class ity of S [facility] [place] [facility] Family History Family Member Diagnosis Comments Start Date Stop Date Source Natural father Heart disease [facility] Social History Social Habit Start Date Stop Date Quantity Comments Source History SDOH [facility] - Alcohol Binge Medical Lizzie ter History SDOH [facility] - Alcohol Comment Medical C enter History of tobacco User of [facility] - use smokeless [facility] tobacco History SDOH [facility] - Alcohol Std Drinks Medica Center Exposure to Yes University of SARS-CoV-2 (event) [facility] [place] [facility] Alcohol intake 2019-01-24 2019-01-24 Current NADIR Scott es - 00:00:00 00:00:00 non-drinker of Medical Ce nter alcohol (finding) Cigarettes smoked 2019-01-21 2019-01-21 NADIR [place] - current (pack per 00:00:00 00:00:00 [facility] Center day) - Reported Cigarette 2019-01-21 2019-01-21 NADIR [place] - pack-years 00:00:00 00:00:00 [facility] Tobacco use and 2019-01-21 2019-01-21 Former user NADIR Valente ukes - exposure 00:00:00 00:00:00 [facility] History SDOH 2019-01-21 2019-01-21 1 NADIR [place] - Alcohol Frequency 00:00:00 00:00:00 [facility] Center Sex Ass[birth year] At [birth year] NADIR Serna kes - 00:00:00 00:00:00 [facility] Smoking Status Start Date Stop Date Source Former smoker 2020-07-21 00:00:00 2020-07-21 00:00:00 [facility] Medical Branch Medications Ordered Filled Start Stop Current Ordering Indication Dosage Frequency Signature Comments Components Source Medication Medication Date Date Medication? Clinician (SIG) Name Name ergocalcife 2020-0 Yes [id number] Take 1 Univers rol, 9-15 capsule by ity of vitamin d2, 00:00: mouth [place] 1,250 mcg 00 weekly. Medical (50,000 Branch unit) capsule ergocalcife 2020-0 Yes [id number] Take 1 Univers rol, 9-15 capsule by ity of vitamin d2, 00:00: mouth [place] 1,250 mcg 00 weekly. Medical (50,000 Branch unit) capsule ergocalcife 2020-0 Yes [id number] Take 1 Univers rol, 9-15 capsule by ity of vitamin d2, 00:00: mouth [place] 1,250 mcg 00 weekly. Medical (50,000 Branch unit) capsule ergocalcife 2020-0 Yes [id number] Take 1 Univers rol, 9-15 capsule by ity of vitamin d2, 00:00: mouth [place] 1,250 mcg 00 weekly. Medical (50,000 Branch unit) capsule ergocalcife 2020-0 Yes [id number] Take 1 Univers rol, 9-15 capsule by ity of vitamin d2, 00:00: mouth [place] 1,250 mcg 00 weekly. Medical (50,000 Branch unit) capsule ergocalcife 2020-0 Yes [id number] Take 1 Univers rol, 9-15 capsule by ity of vitamin d2, 00:00: mouth [place] 1,250 mcg 00 weekly. Medical (50,000 Branch unit) capsule ergocalcife 2020-0 Yes [id number] Take 1 Univers rol, 9-15 capsule by ity of vitamin d2, 00:00: mouth [place] 1,250 mcg 00 weekly. Medical (50,000 Branch unit) capsule ergocalcife 2020-0 Yes [id number] Take 1 Univers rol, 9-15 capsule by ity of vitamin d2, 00:00: mouth [place] 1,250 mcg 00 weekly. Medical (50,000 Branch unit) capsule ergocalcife 2020-0 Yes [id number] Take 1 Univers rol, 9-15 capsule by ity of vitamin d2, 00:00: mouth [place] 1,250 mcg 00 weekly. Medical (50,000 Branch unit) capsule ergocalcife 2020-0 Yes [id number] Take 1 Univers rol, 9-15 capsule by ity of vitamin d2, 00:00: mouth [place] 1,250 mcg 00 weekly. Medical (50,000 Branch unit) capsule ergocalcife 2020-0 Yes [id number] Take 1 Univers rol, 9-15 capsule by ity of vitamin d2, 00:00: mouth [place] 1,250 mcg 00 weekly. Medical (50,000 Branch unit) capsule ergocalcife 2020-0 Yes [id number] Take 1 Univers rol, 9-15 capsule by ity of vitamin d2, 00:00: mouth [place] 1,250 mcg 00 weekly. Medical (50,000 Branch unit) capsule zinc 2020-0 2020- No [id number] 220mg Take 1 Univ ers sulfate 220 9-10 10-11 capsule by i ty of (50) mg 00:00: 04:59 mouth [place] capsule 00 :00 daily for Medical 30 days. Branch zinc 2020-0 2020- No [id number] 220mg Take 1 Univ ers sulfate 220 9-10 10-11 capsule by i ty of (50) mg 00:00: 04:59 mouth [place] capsule 00 :00 daily for Medical 30 days. Branch zinc 2020-0 2020- No [id number] 220mg Take 1 Univ ers sulfate 220 9-10 10-11 capsule by i ty of (50) mg 00:00: 04:59 mouth [place] capsule 00 :00 daily for Medical 30 days. Branch zinc 2020-0 2020- No [id number] 220mg Take 1 Univ ers sulfate 220 9-10 10-11 capsule by i ty of (50) mg 00:00: 04:59 mouth [place] capsule 00 :00 daily for Medical 30 days. [place] zinc 2019- No [id number] 220mg Take 1 Univ ers sulfate 220 9-10 10-11 capsule by i ty of (50) mg 00:00: 04:59 mouth [place] capsule 00 :00 daily for Medical 30 days. [place] zinc 2019- No [id number] 220mg Take 1 Univ ers sulfate 220 9-10 10-11 capsule by i ty of (50) mg 00:00: 04:59 mouth [place] capsule 00 :00 daily for Medical 30 days. [place] zinc 2019- No [id number] 220mg Take 1 Univ ers sulfate 220 9-10 10-11 capsule by i ty of (50) mg 00:00: 04:59 mouth [place] capsule 00 :00 daily for Medical 30 days. [place] zinc No [id number] 220mg Take 1 Univ ers sulfate 220 9-10 10-11 capsule by i ty of (50) mg 00:00: 04:59 mouth [place] capsule 00 :00 daily for Medical 30 days. [place] zinc 2019- No [id number] 220mg Take 1 Univ ers sulfate 220 9-10 10-11 capsule by i ty of (50) mg 00:00: 04:59 mouth [place] capsule 00 :00 daily for Medical 30 days. [place] zinc 2019- No [id number] 220mg Take 1 Univ ers sulfate 220 9-10 10-11 capsule by i ty of (50) mg 00:00: 04:59 mouth [place] capsule 00 :00 daily for Medical 30 days. [place] zinc 2019- No [id number] 220mg Take 1 Univ ers sulfate 220 9-10 10-11 capsule by i ty of (50) mg 00:00: 04:59 mouth [place] capsule 00 :00 daily for Medical 30 days. [place] dexAMETHaso 2019- No [id number] 6mg Take 1 Univers ne 6 mg 9-10 09-18 tablet by ity of tablet 00:00: 04:59 mouth [place] 00 :00 daily for Medical 7 days. [place] dexAMETHaso 2019- No [id number] 6mg Take 1 Univers ne 6 mg 9-10 09-18 tablet by ity of tablet 00:00: 04:59 mouth [place] 00 :00 daily for Medical 7 days. Branch dexAMETHaso 2020-0 2020- No [id number] 6mg Take 1 Univers ne 6 mg 9-10 -18 tablet by ity of tablet 00:00: 04:59 mouth [place] 00 :00 daily for Medical 7 days. Branch dexAMETHaso 2020-0 2020- No [id number] 6mg Take 1 Univers ne 6 mg 9-10 -18 tablet by ity of tablet 00:00: 04:59 mouth [place] 00 :00 daily for Medical 7 days. Branch budesonide- 2020-0 Yes 2{puff} Inhale 2 Univers formoteroL 9-09 Puffs 2 ity of (SYMBICORT) 19:43: (two) [place] 160-4.5 57 times Medical mcg/actuati daily. Branch on inhaler budesonide- 2020-0 Yes 2{puff} Inhale 2 Univers formoteroL 9-09 Puffs 2 ity of (SYMBICORT) 19:43: (two) [place] 160-4.5 57 times Medical mcg/actuati daily. Branch on inhaler budesonide- 2020-0 Yes 2{puff} Inhale 2 Univers formoteroL 9-09 Puffs 2 ity of (SYMBICORT) 19:43: (two) [place] 160-4.5 57 times Medical mcg/actuati daily. Branch on inhaler budesonide- 2020-0 Yes 2{puff} Inhale 2 Univers formoteroL 9-09 Puffs 2 ity of (SYMBICORT) 19:43: (two) [place] 160-4.5 57 times Medical mcg/actuati daily. Branch on inhaler budesonide- 2020-0 Yes 2{puff} Inhale 2 Univers formoteroL 9-09 Puffs 2 ity of (SYMBICORT) 19:43: (two) [place] 160-4.5 57 times Medical mcg/actuati daily. Branch on inhaler budesonide- 2020-0 Yes 2{puff} Inhale 2 Univers formoteroL 9-09 Puffs 2 ity of (SYMBICORT) 19:43: (two) [place] 160-4.5 57 times Medical mcg/actuati daily. Branch on inhaler budesonide- 2020-0 Yes 2{puff} Inhale 2 Univers formoteroL 9-09 Puffs 2 ity of (SYMBICORT) 19:43: (two) [place] 160-4.5 57 times Medical mcg/actuati daily. Branch on inhaler budesonide- 2020-0 Yes 2{puff} Inhale 2 Univers formoteroL 9-09 Puffs 2 ity of (SYMBICORT) 19:43: (two) [place] 160-4.5 57 times Medical mcg/actuati daily. Branch on inhaler budesonide- 2020-0 Yes 2{puff} Inhale 2 Univers formoteroL 9-09 Puffs 2 ity of (SYMBICORT) 19:43: (two) [place] 160-4.5 57 times Medical mcg/actuati daily. Branch on inhaler budesonide- 2020-0 Yes 2{puff} Inhale 2 Univers formoteroL 9-09 Puffs 2 ity of (SYMBICORT) 19:43: (two) [place] 160-4.5 57 times Medical mcg/actuati daily. Branch on inhaler budesonide- 2020-0 Yes 2{puff} Inhale 2 Univers formoteroL 9-09 Puffs 2 ity of (SYMBICORT) 19:43: (two) [place] 160-4.5 57 times Medical mcg/actuati daily. Branch on inhaler budesonide- 2020-0 Yes 2{puff} Inhale 2 Univers formoteroL 9-09 Puffs 2 ity of (SYMBICORT) 19:43: (two) [place] 160-4.5 57 times Medical mcg/actuati daily. Branch on inhaler ALPRAZolam 2020-0 Yes [id number] .5mg Take 1 U nivers (XANAX) 0.5 9-09 tablet by ity of mg tablet 00:00: mouth 3 [place] 00 (three) Medical times Branch daily as needed (anxiety). ALPRAZolam 2020-0 Yes [id number] .5mg Take 1 U nivers (XANAX) 0.5 9-09 tablet by ity of mg tablet 00:00: mouth 3 [place] 00 (three) Medical times Branch daily as needed (anxiety). ALPRAZolam 2020-0 Yes [id number] .5mg Take 1 U nivers (XANAX) 0.5 9-09 tablet by ity of mg tablet 00:00: mouth 3 (three) Medical times Branch daily as needed (anxiety). ALPRAZolam 2020-0 Yes [id number] .5mg Take 1 U nivers (XANAX) 0.5 9-09 tablet by ity of mg tablet 00:00: mouth 3 (three) Medical times Branch daily as needed (anxiety). ALPRAZolam 2020-0 Yes [id number] .5mg Take 1 U nivers (XANAX) 0.5 9-09 tablet by ity of mg tablet 00:00: mouth 3 [place] (three) Medical times Branch daily as needed (anxiety). ALPRAZolam 2020-0 Yes [id number] .5mg Take 1 U nivers (XANAX) 0.5 9-09 tablet by ity of mg tablet 00:00: mouth 3 (three) Medical times Branch daily as needed (anxiety). ALPRAZolam 2020-0 Yes [id number] .5mg Take 1 U nivers (XANAX) 0.5 9-09 tablet by ity of mg tablet 00:00: mouth (three) Medical times Branch daily as needed (anxiety). ALPRAZolam 2020-0 Yes [id number] .5mg Take 1 U nivers (XANAX) 0.5 9-09 tablet by ity of mg tablet 00:00: mouth (three) Medical times Branch daily as needed (anxiety). ALPRAZolam 2020-0 Yes [id number] .5mg Take 1 U nivers (XANAX) 0.5 9-09 tablet by ity of mg tablet 00:00: mouth (three) Medical times Branch daily as needed (anxiety). ALPRAZolam 2020-0 Yes [id number] .5mg Take 1 U nivers (XANAX) 0.5 9-09 tablet by ity of mg tablet 00:00: mouth 3 (three) Medical times Branch daily as needed (anxiety). ALPRAZolam 2020-0 Yes [id number] .5mg Take 1 U nivers (XANAX) 0.5 9-09 tablet by ity of mg tablet 00:00: mouth 3 (three) Medical times Branch daily as needed (anxiety). ALPRAZolam 2020-0 Yes [id number] .5mg Take 1 U nivers (XANAX) 0.5 07-23 tablet by ity of mg tablet 00:00: mouth 3 [place] 00 (three) Medical times Branch daily as needed (anxiety). ascorbic 2019- No [id number] 500mg Take 1 Univers acid, 07-23-10 tablet by ity of vitamin C, 00:00: 04:59 mouth 2 [place] 500 mg 00 :00 (two) Medical tablet times Branch daily for 30 days. ascorbic 2019- No [id number] 500mg Take 1 Univers acid, 07-23-10 tablet by ity of vitamin C, 00:00: 04:59 mouth 2 [place] 500 mg 00 :00 (two) Medical tablet times Branch daily for 30 days. ascorbic 2019- No [id number] 500mg Take 1 Univers acid, 07-2310 tablet by ity of vitamin C, 00:00: 04:59 mouth 2 [place] 500 mg 00 :00 (two) Medical tablet times Branch daily for 30 days. ascorbic 2019- No [id number] 500mg Take 1 Univers acid, 07-23-10 tablet by ity of vitamin C, 00:00: 04:59 mouth 2 [place] 500 mg 00 :00 (two) Medical tablet times Branch daily for 30 days. ascorbic 2019- No [id number] 500mg Take 1 Univers acid, 07-23-10 tablet by ity of vitamin C, 00:00: 04:59 mouth 2 [place] 500 mg 00 :00 (two) Medical tablet times Branch daily for 30 days. ascorbic 2019- No [id number] 500mg Take 1 Univers acid, 07-23-10 tablet by ity of vitamin C, 00:00: 04:59 mouth 2 [place] 500 mg 00 :00 (two) Medical tablet times Branch daily for 30 days. ascorbic 2020- No [id number] 500mg Take 1 Univers acid, 07-23-10 tablet by ity of vitamin C, 00:00: 04:59 mouth 2 [place] 500 mg 00 :00 (two) Medical tablet times Branch daily for 30 days. ascorbic 2019- 2020- No [id number] 500mg Take 1 Univers acid, 07-23-10 tablet by ity of vitamin C, 00:00: 04:59 mouth 2 [place] 500 mg 00 :00 (two) Medical tablet times Branch daily for 30 days. ascorbic 2020-0 2020- No [id number] 500mg Take 1 Univers acid, 07-2310 tablet by ity of vitamin C, 00:00: 04:59 mouth 2 [place] 500 mg 00 :00 (two) Medical tablet times Branch daily for 30 days. ascorbic 2020-0 2020- No [id number] 500mg Take 1 Univers acid, 07-2310 tablet by ity of vitamin C, 00:00: 04:59 mouth 2 [place] 500 mg 00 :00 (two) Medical tablet times Branch daily for 30 days. ascorbic 2020-0 2020- No [id number] 500mg Take 1 Univers acid, 07-2310 tablet by ity of vitamin C, 00:00: 04:59 mouth 2 [place] 500 mg 00 :00 (two) Medical tablet times Branch daily for 30 days. enoxaparin 2020-0 Yes 40mg 40 mg, Unive rs (LOVENOX) 07-22 Subcutaneo ity of injection 20:00: [place], [place]ILY, [place] 40 mg 00 First dose Medical on Tue Branch 07/22/20 at 1500, Until Discontinu ed, Routine sulfur 2020-0 2020- No 10mL 10 mL, Univers hexafluorid 07-22 Intravenou i ty of e microsphr 17:45: 14:15 s, ONCE, 1 [place] (LUMASON) 00 :00 dose, Tue Medic al injection 07/22/20 at Branc h 10 mL 1245, Routine
engineering faculty member approving Restricted medication : TURNER PIMENTEL zinc 2020-0 Yes 220mg 220 mg, Univers sulfate 07-22 Oral, ity of (ORAZINC) 14:00: DAILY, [place] capsule 220 00 First dose Me dical mg on Tue Branch 07/22/20 at 0900, Until Discontinu ed, Routine ergocalcife 2020-0 Yes [id number] 50,000 Un shahzad rol 07-22 Units, ity of (vitamin 14:00: Oral, [place] d2) 00 QWEEKLY, Medical (CALCIFEROL First dose Br anch ) capsule on Tue 50,000 07/22/20 at Units 0900, Until Discontinu ed, Routine aspirin 2020-0 Yes 81mg 81 mg, Univers chewable 07-22 Oral, ity of tablet 81 14:00: DAILY, [place] mg 00 First dose Medical on Tue07/22/20 at 0900, Until Discontinu ed, Routine benzonatate 2020-0 Yes 100mg 100 mg, Un shahzad (TESSALON 07-22 Oral, ity of PERLES) 01:38: TIDPRN, [place] capsule 100 56 Starting Medi carlos mg Tue07/21/20 Branch at 2038, Until Discontinu ed, Routine, Cough, 1st dose now ascorbic 2020-0 Yes 500mg 500 mg, Unive rs acid 07-22 Oral, BID, ity of (vitamin C) 01:30: First dose [place] (VITAMIN C) 00 (after Medica l tablet 500 last Branch mg modificati on) on Tue07/21/20 at 2030, Until Discontinu ed, Routine budesonide- 2020-0 Yes 2{puff} 2 Puff, Univers formoteroL 07-22 Inhalation ity of (SYMBICORT) 01:30: , BID, [place] 160-4.5 00 First dose Medica l mcg/actuati (after Branch on inhaler last 2 Puff modificati on) on Tue07/21/20 at 2030, Until Discontinu ed, Routine dexAMETHaso 2020-0 Yes 6mg 6 mg, Unive rs ne 07-22 Oral, ity of (DECADRON) 01:30: DAILY, [place] tablet 6 mg 00 First dose Me dical (after Branch last modificati on) on Tue07/21/20 at 2030, Until Discontinu ed, Routine budesonide- 2020-0 2020- No 2{puff} 2 Puff, Univers formoteroL 07-22 09-08 Inhalation it y of (SYMBICORT) 01:00: 01:25 , BID, [place] 160-4.5 00 :13 First dose Medica l mcg/actuati on Tue on inhaler 07/21/20 at 2 Puff 2000, Until Discontinu ed, Routine ondansetron 2020-0 Yes 4mg 4 mg, Slow Univers (ZOFRAN 07-21 IV Push, ity of (PF)) 21:16: Q6HPRN, [place] injection 4 56 Starting Medi carlos mg Tue07/21/20 Branch at 1616, Until Discontinu ed, Routine, Nausea and Vomiting (N/V) HYDROcodone 2020-0 Yes 1{tbl} 1 tablet, Univers -acetaminop 07-21 Oral, ity of hen (NORCO) 21:16: Q6HPRN, [place] 10-325 mg 54 Starting Medica l tablet 1 Mon 07/21/20 Branc h tablet at 1616, Until Discontinu ed, Routine, Pain (scale 7-10) traMADoL 2019-0 2020- No 50mg 50 mg, Univer s (ULTRAM) 07-21 Oral, ity of tablet 50 21:16: 21:15 Q8HPRN, [place] mg 50 :50 Starting Medical 07/21/20 Branch at 1616, Until 07/23/20 at 1615, Routine, Pain (scale 4-6) acetaminoph 2019-0 Yes 650mg 650 mg, Un shahzad en 07-21 Oral, ity of (TYLENOL) 21:16: Q6HPRN, [place] tablet 650 46 Starting Medic al mg Tue07/21/20 Branch at 1616, Until Discontinu ed, Routine, Pain (scale 1-3) ketorolac 2019- 2020- No 30mg 30 mg, Unive rs (TORADOL) 07-21 Slow IV ity of injection 20:00: 19:40 Push, [place] 30 mg 00 :00 ONCE, 1 Medical dose, [facility] 07/21/20 at 1500, Routine
engineering faculty member approving Restricted medication : WHITNEY HERNÁNDEZ aspirin 2019-0 2020- No 325mg 325 mg, Unive rs tablet 325 07-21 Oral, ity of mg 20:00: 19:42 ONCE, 1 [place] 00 :00 dose, [facility] Medical 07/21/20 at Branch 1500, STAT nitroglycer 2019-0 Yes .4mg 0.4 mg, Uni vers in 07-21 Sublingual ity of (NITROSTAT) 19:29: , Q5MIN [place] sublingual 01 PRN, 3 Medical tablet 0.4 doses, Branch mg Starting [facility] 07/21/20 at 1429, Until Discontinu ed, MARISOL, Chest pain NaCl 0.9% 2019-0 2020- No 1000mL at 999 Uni vers (NS) bolus 9-07 09-07 mL/hr, ity of infusion 19:00: 19:40 1,000 mL, [place] 1,000 mL 00 :00 IV Medical Infusion, Branch ONCE, 1 dose, 07/21/20 at 1400, MARISOL budesonide- 2018-0 Yes 1{puff} Inhale [address] [facility] [address] formoterol 3-13 puff by [facility] (SYMBICORT) 14:06: mouth via M edical 160-4.5 41 inhaler as Center mcg/actuati needed. on inhaler pantoprazol 0 Yes 40mg Q.5D Take [address] [facility] [address] [facility] 3-13 tablet (40 [facility] - (PROTONIX) 00:00: mg total) Me dical 40 MG 00 by mouth 2 Center tablet (two) times daily. perflutren 2020- No 1.65mg Univ ers lipid 03-1107 ity of microsphere 16:08: 21:51 [place] s 57 :30 Medical (DEFINITY) Branch injection 1.65 mg nitroglycer Yes .4mg Place 1 Uni vers in 4-26 tablet ity of (NITROSTAT) 00:00: under the [place] 0.4 mg 00 tongue Medical sublingual every 5 Branc h tablet (five) minutes as needed for Chest pain. aspirin 81 Yes 81mg Take 1 Unive rs mg EC 4-26 tablet by ity of tablet 00:00: mouth [place] 00 daily. Medical Branch nitroglycer Yes .4mg Place 1 Uni vers in 4-26 tablet ity of (NITROSTAT) 00:00: under the [place] 0.4 mg 00 tongue Medical sublingual every 5 Branc h tablet (five) minutes as needed for Chest pain. aspirin 81 0 Yes 81mg Take 1 Unive rs mg EC 4-26 tablet by ity of tablet 00:00: mouth [place] 00 daily. Medical Branch nitroglycer [address] 1 Uni vers in 4-26 tablet ity of (NITROSTAT) 00:00: under the [place] 0.4 mg 00 tongue Medical sublingual every 5 Branc h tablet (five) minutes as needed for Chest pain. aspirin 81 0 Yes 81mg Take 1 Unive rs mg EC 4-26 tablet by ity of tablet 00:00: mouth [place] 00 daily. Medical Branch nitroglycer 2016-[address] 1 Uni vers in 4-26 tablet ity of (NITROSTAT) 00:00: under the [place] 0.4 mg 00 tongue Medical sublingual every 5 Branc h tablet (five) minutes as needed for Chest pain. aspirin 81 2016-0 Yes 81mg Take 1 Unive rs mg EC 4-26 tablet by ity of tablet 00:00: mouth [place] 00 daily. Medical Branch nitroglycer 2016-[address] 1 Uni vers in 4-26 tablet ity of (NITROSTAT) 00:00: under the [place] 0.4 mg 00 tongue Medical sublingual every 5 Branc h tablet (five) minutes as needed for Chest pain. aspirin 81 2016-0 Yes 81mg Take 1 Unive rs mg EC 4-26 tablet by ity of tablet 00:00: mouth [place] 00 daily. Medical Branch nitroglycer 2016-[address] 1 Uni vers in 4-26 tablet ity of (NITROSTAT) 00:00: under the [place] 0.4 mg 00 tongue Medical sublingual every 5 Branc h tablet (five) minutes as needed for Chest pain. aspirin 81 2016-0 Yes 81mg Take 1 Unive rs mg EC 4-26 tablet by ity of tablet 00:00: mouth [place] 00 daily. Medical Branch nitroglycer 2016-[address] 1 Uni vers in 4-26 tablet ity of (NITROSTAT) 00:00: under the [place] 0.4 mg 00 tongue Medical sublingual every 5 Branc h tablet (five) minutes as needed for Chest pain. aspirin 81 2016-0 Yes 81mg Take 1 Unive rs mg EC 4-26 tablet by ity of tablet 00:00: mouth [place] 00 daily. Medical Branch nitroglycer 2016-[address] 1 Uni vers in 4-26 tablet ity of (NITROSTAT) 00:00: under the [place] 0.4 mg 00 tongue Medical sublingual every 5 Branc h tablet (five) minutes as needed for Chest pain. aspirin 81 2016-0 Yes 81mg Take 1 Unive rs mg EC 4-26 tablet by ity of tablet 00:00: mouth [place] 00 daily. Medical Branch nitroglycer 2016-[address] 1 Uni vers in 4-26 tablet ity of (NITROSTAT) 00:00: under the [place] 0.4 mg 00 tongue Medical sublingual every 5 Branc h tablet (five) minutes as needed for Chest pain. aspirin 81 2016-0 Yes 81mg Take 1 Unive rs mg EC 4-26 tablet by ity of tablet 00:00: mouth [place] 00 daily. Medical Branch nitroglycer 2016-[address] 1 Uni vers in 4-26 tablet ity of (NITROSTAT) 00:00: under the [place] 0.4 mg 00 tongue Medical sublingual every 5 Branc h tablet (five) minutes as needed for Chest pain. aspirin 81 2016-0 Yes 81mg Take 1 Unive rs mg EC 4-26 tablet by ity of tablet 00:00: mouth [place] 00 daily. Medical Branch nitroglycer 2016-[address] 1 Uni vers in 4-26 tablet ity of (NITROSTAT) 00:00: under the [place] 0.4 mg 00 tongue Medical sublingual every 5 Branc h tablet (five) minutes as needed for Chest pain. aspirin 81 2016-0 Yes 81mg Take 1 Unive rs mg EC 4-26 tablet by ity of tablet 00:00: mouth [place] 00 daily. Medical Branch nitroglycer 2016-[address] 1 Uni vers in 4-26 tablet ity of (NITROSTAT) 00:00: under the [place] 0.4 mg 00 tongue Medical sublingual every 5 Branc h tablet (five) minutes as needed for Chest pain. aspirin 81 2016-0 Yes 81mg Take 1 Unive rs mg EC 4-26 tablet by ity of tablet 00:00: mouth [place] 00 daily. Medical Branch benzonatate 2016-0 Yes 100mg Take 1 Cap Univers (TESSALON 1-18 by mouth 3 ity of PERLES) 100 00:00: (three) [place] as mg capsule 00 times Medical daily as Branch needed for Cough. benzonatate 2016-0 Yes 100mg Take 1 Cap Univers (TESSALON 1-18 by mouth 3 ity of PERLES) 100 00:00: (three) [place] mg capsule 00 times Medical daily as Branch needed for Cough. benzonatate 2016-0 Yes 100mg Take 1 Cap Univers (TESSALON 1-18 by mouth 3 ity of PERLES) 100 00:00: (three) [place] mg capsule 00 times Medical daily as Branch needed for Cough. benzonatate 2016-0 Yes 100mg Take 1 Cap Univers (TESSALON 1-18 by mouth 3 ity of PERLES) 100 00:00: (three) [place] mg capsule 00 times Medical daily as Branch needed for Cough. benzonatate 2016-0 Yes 100mg Take 1 Cap Univers (TESSALON 1-18 by mouth 3 ity of PERLES) 100 00:00: (three) [place] as mg capsule 00 times Medical daily as Branch needed for Cough. benzonatate 2016-0 Yes 100mg Take 1 Cap Univers (TESSALON 1-18 by mouth 3 ity of PERLES) 100 00:00: (three) Jerry as mg capsule 00 times Medical daily as Branch needed for Cough. benzonatate 2016-0 Yes 100mg Take 1 Cap Univers (TESSALON 1-18 by mouth 3 ity of PERLES) 100 00:00: (three) Jerry as mg capsule 00 times Medical daily as Branch needed for Cough. benzonatate 2016-0 Yes 100mg Take 1 Cap Univers (TESSALON 1-18 by mouth 3 ity of PERLES) 100 00:00: (three) Jerry as mg capsule 00 times Medical daily as Branch needed for Cough. benzonatate 2016-0 Yes 100mg Take 1 Cap Univers (TESSALON 1-18 by mouth 3 ity of PERLES) 100 00:00: (three) Jerry as mg capsule 00 times Medical daily as Branch needed for Cough. benzonatate 2016-0 Yes 100mg Take 1 Cap Univers (TESSALON 1-18 by mouth 3 ity of PERLES) 100 00:00: (three) Jerry as mg capsule 00 times Medical daily as Branch needed for Cough. benzonatate 2016-0 Yes 100mg Take 1 Cap Univers (TESSALON 1-18 by mouth 3 ity of PERLES) 100 00:00: (three) Jerry as mg capsule 00 times Medical daily as Branch needed for Cough. benzonatate 2016-0 Yes 100mg Take 1 Cap Univers (TESSALON 1-18 by mouth 3 ity of PERLES) 100 00:00: (three) Jerry as mg capsule 00 times Medical daily as Branch needed for Cough. sulindac 2016-0 2020- No 200mg Take 1 Tab U nivers (CLINORIL) 12-01 by mouth 2 it y of 200 mg 00:00: 00:00 (two) [place] tablet 00 :00 times Medical daily. Branch azelastine 2020- No 1{spray Use 1 Un shahzad (ASTELIN) 12-01 } [place] in ity o f 137 mcg 00:00: 00:00 each [place] (0.1 %) 00 :00 nostril 2 Medical nasal spray (two) Branch times daily. Use in each nostril as directed Immunizations Ordered Filled Immunization Date Status Comments [facility] e Immunization Name Name Rabies 2019-01-[address] [facility] - 00:[facility]00 [facility] Td 7+ years, 2019-01-[address] [facility] - (TDVAX) 2 Lf 00:00:00 Medical [facility] er tetanus toxoid preservative free Influenza Four-QIV 2019-01-[address] [facility] - Non-PF 5+ YR 00:00:00 Medical [facility] er Influenza Virus 2019-01-22 Completed Universit y of Vaccine 00:00:00 [facility] [place] [facility] Td 2019-01-22 Completed University of 00:00:00 [facility] [place] [facility] Influenza Virus 2019-01-22 Completed Universit y of Vaccine 00:00:00 [facility] Td 2019-01-22 Completed University of 00:00:00 [facility] Influenza Virus 2019-01-22 Completed Universit y of Vaccine 00:00:00 [facility] Td 2019-01-22 Completed University of 00:00:00 [facility] Influenza Virus 2019-01-22 Completed Universit y of Vaccine 00:00:00 [facility] Td 2019-01-22 Completed University of 00:00:00 [facility] [place] [facility] Influenza Virus 2019-01-22 Completed Universit y of Vaccine 00:00:00 [facility] Td 2019-01-22 Completed University of 00:00:00 [facility] [place] [facility] Influenza Virus 2019-01-22 Completed Universit y of Vaccine 00:00:00 [facility] Td 2019-01-22 Completed University of 00:00:00 [facility] Influenza Virus 2019-01-22 Completed Universit y of Vaccine 00:00:00 [facility] Td 2019-01-22 Completed University of 00:00:00 [facility] [place] [facility] Influenza Virus 2019-01-22 Completed Universit y of Vaccine 00:00:00 [facility] Td 2019-01-22 Completed University of 00:00:00 [facility] Influenza Virus 2019-01-22 Completed Universit y of Vaccine 00:00:00 [facility] Td 2019-01-22 Completed University of 00:00:00 [place] [facility] Influenza Virus 2019-01-22 Completed Universit y of Vaccine 00:00:00 [place] [facility] Td 2019-01-22 Completed University of 00:00:00 [facility] Influenza Virus 2019-01-22 Completed Universit y of Vaccine 00:00:00 [place] [facility] Td 2019-01-22 Completed University of 00:00:00 [facility] Influenza Virus 2019-01-22 Completed Universit y of Vaccine 00:00:00 [facility] Td 2019-01-22 Completed University of 00:00:00 [place] [facility] Rabies 2019-01-[address] [facility] Vital Signs Vital Name Observation Time Observation Value Comments Source Respiratory rate 2020-07-23 17:22:00 25 /min [facility] [place] [facility] [place] [facility] Oxygen saturation in 2020-07-23 17:22:00 91 /min University of Arterial blood by [facility] Pulse oximetry Branch Systolic blood 2020-07-23 17:22:00 118 mm[Hg] Univer sity of pressure [facility] Diastolic blood 2020-07-23 17:22:00 75 mm[Hg] Unive rsity of pressure [facility] Heart rate 2020-07-23 17:22:00 100 /min [facility] Body temperature 2020-07-23 17:22:00 36.78 Indira [facility] 2020-07-22 09:38:00 99.809 kg [facility] BMI 2020-07-22 09:38:00 38.98 kg/m2 [facility] Respiratory rate 2020-07-23 17:22:00 25 /min [facility] [place] [facility] Oxygen saturation in 2020-07-23 17:22:00 91 /min University of Arterial blood by [facility] Pulse oximetry Branch Systolic blood 2020-07-23 17:22:00 118 mm[Hg] Univer sity of pressure [facility] Diastolic blood 2020-07-23 17:22:00 75 mm[Hg] Unive rsity of pressure [facility] Heart rate 2020-07-23 17:22:00 100 /min [facility] Body temperature 2020-07-23 17:22:00 36.78 Indira [facility] Body weight 2020-07-22 09:38:00 99.809 kg [facility] BMI 2020-07-22 09:38:00 38.98 kg/m2 [facility] Procedures Procedure Date / Time Performing Clinician Source Performed AUTHORIZATION FOR 2021-03-23 05:01:00 Doctor Unassigned, No [facility] PATIENT QUESTIONNAIRE 2020-08-15 05:01:00 Doctor Unassigned, No [facility] PATIENT QUESTIONNAIRE 2020-08-07 05:01:00 Doctor Unassigned, No [facility] TROPONIN I 2020-07-22 14:39:00 Areli Pisano [facility] ECHO ROUTINE W/DOPPLER 2020-07-22 13:40:32 [facility] 2020-07-22 07:08:00 Areli Pisano [facility] BASIC METABOLIC PANEL 2020-07-22 07:08:00 Areli Pisano [facility] (NA, K, CL, CO2, [facility] GLUCOSE, BUN, CREATININE, CA) CBC WITH DIFF 2020-07-22 07:08:00 Areli Pisano [facility] VITAMIN D, 25-OH 2020-07-22 07:08:00 Areli Pisano [facility] PNEUMOCOCCAL ANTIGEN 2020-07-22 04:36:00 Areli Pisano [facility] 2020-07-21 22:10:00 Areli Pisano [facility] TROPONIN I 2020-07-21 22:10:00 Areli Pisano [facility] PROCALCITONIN 2020-07-21 22:10:00 Norris Arelibela Pickering [facility] BILATERAL VENOUS DUPLEX 2020-07-21 20:03:03 Whitney Hernández [facility] LOWER EXTREMITY BY Medical [facility] VASCULAR LAB XR CHEST 1 VW COVID 2020-07-21 19:37:58 Whitney Hernández [facility] BLOOD CULTURE SCREEN 2020-07-21 19:10:00 Whitney Hernández [facility] COVID-19 (ID NOW RAPID 2020-07-21 19:09:00 Whitney Hernández [facility] TESTING) [facility] LACTATE DEHYDROGENASE 2020-07-21 19:07:00 [facility] LIPASE 2020-07-21 19:07:00 Whitney Hernández [facility] FERRITIN SERUM 2020-07-21 19:07:00 Whitney Hernández [facility] TROPONIN I 2020-07-21 19:07:00 Whitney Hernández [facility] THYROID STIMULATING 2020-07-21 19:07:00 Areli Pisano [facility] HORMONE [facility] HEPATIC FUNCTION PANEL 2020-07-21 19:07:00 Whitney Hernández [facility] ([id number]) (ALB,T.PRO,BILI Medical Branch T,BU/BC,ALT,AST,ALK PHOS) BASIC METABOLIC PANEL 2020-07-21 19:07:00 Whitney Hernández [facility] (NA, K, CL, CO2, Medical Branch GLUCOSE, BUN, CREATININE, CA) LIPID PANEL 2020-07-21 19:07:00 Areli Pisano [facility] ([id number])(TOTAL [facility] CHOLESTEROL, TRIGLYCERIDES, HDL) CBC WITH DIFF 2020-07-21 19:07:00 Whitney Hernández [facility] GLYCOSYLATED HEMOGLOBIN 2020-07-21 19:07:00 Areli Pisano [facility] (A1C) [facility] PROTHROMBIN TIME / INR 2020-07-21 19:07:00 Whitney Hernández [facility] D-DIMER 2020-07-21 19:07:00 Whitney Hernández [facility] ACTIVATED PARTIAL 2020-07-21 19:07:00 Whitney Hernández [facility] THRMPLAS CRYSTAL [facility] FIBRINOGEN 2020-07-21 19:07:00 Whitney Hernández [facility] N-TERMINAL PRO-BNP 2020-07-21 19:07:00 Whitney Hernández [facility] BLOOD CULTURE SCREEN 2020-07-21 19:06:00 Whitney Hernández [facility] EKG-12 LEAD 2020-07-21 18:48:26 Whitney Hernández [facility] NOTICE OF PRIVACY 2020-07-21 18:24:15 Doctor Unassigned, No Univ [facility] PRACTICES Name [facility] CONSENT/REFUSAL FOR 2020-07-21 18:23:05 Doctor [facility]assigned, No [facility] Name [facility] Plan of Care Planned Activity Planned Date Details Comments Source Future Scheduled 2029-01-22 DTAP/TDAP/TD [facility]ACCINES [facility]00 (2 - Td or Tdap) Medical [address] [code = DTAP/TDAP/TD VACCINES (2 - Td or Tdap)] Future Scheduled 2022-01-[address] [facility]00 (procedure) [code = Medical Center [id number]] Future Scheduled 2021-11-[address] [facility] - Test 00:00:00 (12+) [code = Medical Center DEPRESSION SCREENING (12+)] Future Scheduled 2021-07-[address] [facility] - Test 00:00:00 (#1) [code = Medical Center INFLUENZA VACCINE (#1)] Future Scheduled 2017 SHINGLES VACCINES ([address] [facility] - Test 00:00:00 of 2) [code = Medical Center SHINGLES VACCINES (1 of 2)] Future Scheduled 1985 HEPATITIS C [facility] Test 00:[facility]00 [code = HEPATITIS C Medical Center SCREENING] Future Scheduled 1979 COVID-19 VACCINE (1) [facility] - Test 00:00:00 [code = COVID-[address] VACCINE (1)] Future Scheduled [address] [facility] Test 00:00:00 malignant neoplasm of Medica l Center colon (procedure) [code = 358289550] Encounters Start End Encounter Admission Attending Care Care Encounter Source Date/Time Date/Time Type Type Clinicians Facility Department ID 2021-05-13 2021-05-13 Outpatient Sheldon FLORES [facility] [id number] Univers 12:20:00 11:54:38 SHMUEL blane [facility] 2021-04-22 2021-04-22 Outpatient R SANDRA [facility] [id number] Univers 12:30:00 12:21:23 SHMUEL blane [facility] 2021-04-22 2021-04-22 Outpatient Sheldon SANDRA [facility] [id number] Univers 12:20:00 12:20:00 SHMUEL blane [facility] 2021-03-23 2021-03-23 Orders Doctor JOVANNI 1.2.840.114 [id number] Univers 00:00:00 00:00:00 Only Unassigned, MARIO [id number] ity of [place] [facility] [id number] Jerry as [phone] [address] 2020-08-15 2020-08-15 Laboratory Lab, [facility] 1.2.840.114 [id number] 09:44:41 10:04:41 Only Fam Pob I Health [id number] [place] [id number] Professio [phone] [place] [address] Office [facility] 2020-08-15 2020-08-15 Laboratory Lab, [facility] Fam Pob I [facility] 1.2. 840.114 [id number] [facility] 09:44:41 10:04:41 Only Anene, Marlene Health [id number] ity of [place] [id number] Jerry as Professio [phone] Id dical [address] Office [facility] 2020-08-15 2020-08-15 Outpatient R [facility] [id number] Univers 10:00:00 10:00:00 ity [facility] 2020-08-15 2020-08-15 Outpatient R [facility] [id number] Univers 10:00:00 10[facility]00[facility] 2020-08-15 2020-08-15 Orders Doctor BAIG 1.2.840.114 [id number] 00:00:00 00:00:00 Only Unassigned, MARIO [id number] [place] [facility] [id number] [id number] [facility] 2020-08-15 2020-08-15 Orders Doctor JOVANNI 1.2.840.114 [id number] Univers 00:00:00 00:00:00 Only Unassigned, MARIO [id number] ity of [place] [facility] [id number] Jerry as [phone] [address] 2020-08-07 2020-08-07 Laboratory Lab, [facility] 1.2.840.114 [id number] 18:40:54 19:00:54 Only Fam Pob I Health [id number] [place] [id number] Professio [phone] nal [facility] Office [facility] 2020-08-07 2020-08-07 Laboratory Lab, [facility] Fam Pob I [facility] 1.2. 840.114 [id number] Univers 18:40:54 19:00:54 Only Marlene [facility] [id number] ity of [place] 4.2.7.2.686 Jerry as Professio [phone] Id dical [address] Office [facility] 2020-08-07 2020-08-07 [facility] [id number] Univers 19:00:00 19:00:00 MARLENE ity of [facility] 2020-08-07 2020-08-07 Outpatient R [facility] [id number] Univers 11:20:00 11:20:00 ity of [facility] 2020-08-07 2020-08-07 Orders Doctor BAIG 1.2.840.114 [id number] 00:00:00 00:00:00 Only Unassigned, MARIO [id number] [place] [facility] 4.2.7.2.686 [id number] 2020-08-07 2020-08-07 Orders Doctor BAIG 1.2.840.114 [id number] Univers 00:00:00 00:00:00 Only Unassigned, MARIO [id number] ity of [place] [facility] [id number] Jerry as [phone] [address] 2020-08-06 2020-08-06 Patient Bhumika Hernandez 1.2.840.114 [id number] Univers 00:00:00 00:00:00 Outreach E [place] [id number] i ty [place]2.7.2.[place] [id number] [address] 2020-08-06 2020-08-06 Patient Bhumika Hernandezantwan 1.2.840.114 [id number] 00:00:00 00:00:00 Outreach E [place] [id number] [place] 4.2.7.2.686 [phone] [facility] 2020-08-05 2020-08-05 Patient ArcadiaOdilonantwan 1.2.840.114 [id number] 00:00:00 00:00:00 Outreach Vilma E [place] [id number] [place] 4.2.7.2.686 [id number] [facility] 2020-08-05 2020-08-05 Patient ArcadiaAmy sullivan 1.2.840.114 [id number] Univers 00:00:00 00:00:00 Outreach Vilma E [place] [id number] i ty [place]2.[place] [phone] [address] 2020-08-01 2020-08-01 Patient Bhumika Hernandez 1.2.840.114 [id number] 00:00:00 00:00:00 Outreach E [place] [id number] [place] 4.2.7.2.686 [id number] [facility] 2020-08-01 2020-08-01 Patient Bhumika Hernandezantwan 1.2.840.114 [id number] Univers 00:00:00 00:00:00 Outreach E [place] [id number] i [place] [phone] [address] 2020-07-24 2020-07-24 Transition Amy Jimenez 1.2.840.114 [id number] 00:00:00 00:00:00 of Care Dot Onva 350.1.13.10 [place] 4.2.7.2.686 [id number] [facility] 2020-07-24 2020-07-24 Transition Amy Jimenez 1.2.840.114 [id number] 00:00:00 00:00:00 of Care Dot [place] [id number] [place] 4.2.7.2.686 [id number] [facility] 2020-07-24 2020-07-24 Patient Bhumika Hernandez 1.2.840.114 [id number] 00:00:00 00:00:00 Outreach E [place] [id number] [place] 4.2.7.2.686 [id number] [facility] 2020-07-24 2020-07-24 Transition Odilon Jimenezantwan 1.2.840.114 [id number] Univers 00:00:00 00:00:00 of Care Dot [place] [id number] [place].2.[place] [phone] [address] 2020-07-24 2020-07-24 Transition Odilon Jimenezantwan 1.2.840.114 [id number] Univers 00:00:00 00:00:00 of Care Dot [place] [id number] [place].2.[place] [phone] [address] 2020-07-24 2020-07-24 Patient Bhumkia Hernandez 1.2.840.114 [id number] [facility] 00:00:00 00:00:00 Outreach E [place] [id number] i ty [place].2.[place] [id number] [address] 2020-07-21 2020-07-23 [facility] 1.2.840. 114 [id number] 13:42:00 14:30:00 Encounter Naif Coppola 350.1.13.10 [place] 4.2.7.2.686 [place] [id number] [facility][note 3] 2020-07-21 2020-07-23 [facility] 1.2.840. 114 [id number] [facility] 13:42:00 14:30:00 Encounter Naif Coppola 350.1.13.10 ity of [place] 4[place]2.7.2.[place] [phone] [address] 2020-07-21 2020-07-21 Emergency X BETTY [facility] ERT [id number] Univers 13:42:00 13:42:00 WHITNEY linda of [facility] Results Test Description Test Time Test Comments Results Result Comments Source VITAMIN D, 25-OH 2020-07-22 16:04:00 Test Item Value Reference Range Interpretation Comme nts VIT D 25OH (test code = 58362-4) 22 ng/mL 25-80 L FRANSISCO (test code = FRANSISCO) Deficiency: <20 ng/mLInsufficiency: 20-24 ng/mLOptimal: 25-80 ng/mL Lab Interpretation (test code = 66398-2) Abnormal [facility] [id number] 15:25:00 Test Item Value Reference Range Interpretation Comments TROPONIN I (test <0.012 See_Comment [Automated code = [id number]) message] The system which generated this result transmitted reference range : <=0.034 ng/mL. The reference range was not used to interpr et this result as normal/abnormal . FRANSISCO (test code = Equal or Less than FRANSISCO) 0.034 ng/ml---Normal ?Note: Cardiac troponin begins to rise 3-4 hours after the onset of ischemia. Repeat in 4-6 hours if the sample was drawn within 3-4 hours of the onset of the symptom and found normal. Between 0.035 and 0.120 ng/mL--- Borderline. Questionable myocardial injury or necrosis ? ?Note: Serial measurement may be necessary to confirm or exclude the diagnosis of myocardial injury or necrosis; Clinical correlation (symptoms, EKGs, imaging studies, and others) required; Repeat in 4-6 hours if clinically indicated. ? Equal or Higher than 0.121 ng/mL---Abnormal. Myocardial Injury or Necrosis Likely ? Biotin has been reported to cause a negative bias, interpret results relative to patient's use of biotin. ? Lab Interpretation Normal (test code = 28975-6) [facility]2020-[facility]08 14:21:00 Test Item Value Reference Range Interpretation Comments Procalcitonin (test 0.08 ng/mL <0.07 H code = 3696692427) FRANSISCO (test code = FRANSISCO) INTERPRETATION OF PROCALCITONIN RESULTS IN ADULTS >= 18 YEARS OF AGE Initiation and discontinuation of antibiotics on patients with suspected or confirmed Lower Respiratory Tract Infection in Adults >= 18 years of age. + +-------- --------+ + -----+|Procalcitonin |Interpretation ?|Antibiotic ? ? |Considerations ? |ng/mL ? | ?|recommendation | ? + +-------- --------+ + -----+| <0.1 ? | Bacterial ? ? ?| Strongly ? ? ?| ? | ?| infection very | discouraged ? | Overruling: ? | ?| unlikely ? ? ? | ? | ? Clinically unstable ? ? ? + +-------- --------+ + ? High risk for adverse ? ? | <0.25 ?| Bacterial ? ? ?| Discouraged ? | ? outcome ? | ?| infection ? ? ?| ? | ? SEE IMPORTANT NOTE ?| ?| unlikely ? ? ? | ? | ? + +-------- --------+ + -----+| >=0.25 ? ? ? | Bacterial ? ? ?| Encouraged ? ?| ? | ?| infection ? ? ?| ? | ? | ?| likely ? | ? | Consider treatment failure ?+ +------- ---------+ -+ if levels does not decrease | >0.5 ? | Bacterial ? ? ?| Strongly ? ? ?| appropriately ? | ?| infection very | encouraged ? ?| ? | ?| likely ? | ? | ? + +-------- --------+ + -----+ Discontinuation of antibiotics in high-acuity patients with suspected or confirmed sepsis in Adults >= 18 years of age. + +-------- --------+ + -----+|Procalcitonin |Interpretation ?|Antibiotic ? ? |Considerations ? |ng/mL ? | ?|recommendation | ? + +-------- --------+ + -----+| <0.25 ?| Bacterial ? ? ?| Strongly ? ? ?| ? | ?| infection very | discouraged ? | Overruling: ? | ?| unlikely ? ? ? | ? | ? Clinically unstable ? ? ? + +-------- --------+ + ? High risk for adverse ? ? | <0.5 or drop | Bacterial ? ? ?| Discouraged ? | ? outcome ? | >80% from ? ?| infection ? ? ?| ? | ? SEE IMPORTANT NOTE ?| highest PCT ?| unlikely ? ? ? | ? | ? | level ?| ?| ? | ? + +-------- --------+ + -----+| >=0.5 ?| Bacterial ? ? ?| Encouraged ? ?| ? | ?| infection ? ? ?| ? | ? | ?| likely ? | ? | Consider treatment failure ?+ +------- ---------+ -+ if levels does not decrease | >1.0 ? | Bacterial ? ? ?| Strongly ? ? ?| appropriately ? | ?| infection very | encouraged ? ?| ? | ?| likely ? | ? | ? + +-------- --------+ + -----+ Percentage of drop of Procalcitonin calculation for Discontinuation of antibiotics in high-acuity patients with suspected or confirmed sepsis in Adults >= 18 years of age. ? Procalcitonin highest{}-Procalcitonin current{}Delta Procalcitonin = x100% ? Procalcitonin current {} IMPORTANT NOTE: Procalcitonin may be elevated without bacterial infection by physiologic stress related to trauma, banda, chronic dialysis, metastatic cancer, surgery in the past seven days, malaria, some fungal infections, and some forms of vasculitis. The interpretation algorithm may not apply to patients with immunosuppression (equivalent of >10 mg of prednisone daily), HIV with CD4 cell count < 350 cells/mm3, active malignancy on systemic chemotherapy, solid organ transplant or hematopoietic stem cell transplantation, or hospital acquired pneumonia. Additionally, some clinical trials of procalcitonin have excluded patients with shock requiring vasopressor use, acute respiratory failure requiring mechanical ventilation, or those with known lung abscess/empyema. For further information please refer to:[email or web address] Lab Interpretation Abnormal (test code = 73892-5) [facility] [id number] 14:10:00 Test Item Value Reference Range Interpretation Comments S. pneumoniae antigen (test code = Negative Negative [id number]) Lab Interpretation (test code = Normal 66596-8) [facility] URINARY ANTIGEN [id number] 14:10:00 Test Item Value Reference Range Interpretation Comments Legionella Urinary Negative Negative Antigen (test code = 5645573322) FRANSISCO (test code = FRANSISCO) Negative for L. pneumophilia serogroup I antigen in urine suggesting no recent or current infection. Infection due to Legionella cannot be ruled out since other serogroups and species may cause disease. Furthermore, antigens may not be present in urine during early stage of infection, or the level of antigen present in urine may be below the detection limit of the test. Lab Interpretation (test Normal code = 17264-0) [facility] [id number] 09:00:00 Test Item Value Reference Range Interpretation Comments TROPONIN I (test <0.012 See_Comment [Automated code = [id number]) message] The system which generated this result transmitted reference range : <=0.034 ng/mL. The reference range was not used to interpr et this result as normal/abnormal . FRANSISCO (test code = Equal or Less than FRANSISCO) 0.034 ng/ml---Normal ?Note: Cardiac troponin begins to rise 3-4 hours after the onset of ischemia. Repeat in 4-6 hours if the sample was drawn within 3-4 hours of the onset of the symptom and found normal. Between 0.035 and 0.120 ng/mL--- Borderline. Questionable myocardial injury or necrosis ? ?Note: Serial measurement may be necessary to confirm or exclude the diagnosis of myocardial injury or necrosis; Clinical correlation (symptoms, EKGs, imaging studies, and others) required; Repeat in 4-6 hours if clinically indicated. ? Equal or Higher than 0.121 ng/mL---Abnormal. Myocardial Injury or Necrosis Likely ? Biotin has been reported to cause a negative bias, interpret results relative to patient's use of biotin. ? Lab Interpretation Normal (test code = 70785-6) [facility] (NA, K, CL, CO2, GLUCOSE, BUN, CREATININE, CA)2020-07-22 08:49:00 Test Item Value Reference Range Interpretation Comments NA (test code = 135 mmol/L 135-145 7177516754) K (test code = 4.4 mmol/L 3.5-5 7296513227) CL (test code = 104 mmol/L 98-108 7233540734) CO2 TOTAL (test code = 22 mmol/L 23-31 L 9921835872) AGAP (test code = 2-16 1043881392) BUN (test code = 13 mg/dL 7-23 3582612532) GLUCOSE (test code = 142 mg/dL 70-110 H 1149021754) CREATININE (test code = 0.84 mg/dL 0.6-1.25 5547633645) CALCIUM (test code = 9.4 mg/dL 8.6-10.6 1281883140) eGFR Calculation mL/min/1.73m2 (Non-) (test code = 5254596491) eGFR Calculation mL/min/1.73m2 () (test code = 0702944268) FRANSISCO (test code = FRANSISCO) Association of Glomerular Filtration Rate (GFR) and Staging of Kidney Disease* + --+ --+ ------+| GFR (mL/min/1.73 m2) ?| With Kidney Damage ?| ?Without Kidney Damage+ --------+ --------+ +| ?>90 ?| ?Stage one ?| ? Normal ?+ ---+ ---+ -------+| ?60-89 ?| ?Stage two ?| ? Decreased GFR ? + --+ --+ ------+| ?30-59 ?| ?Stage three ?| ? Stage three ? + --+ --+ ------+| ?15-29 ?| ?Stage four ? | ? Stage four ?+ ---+ ---+ -------+| ?<15 (or dialysis) ? ?| ?Stage five ? | ? Stage five ?+ ---+ ---+ -------+ *Each stage assumes the associated GFR level has been in effect for at least three months. ?Stages 1 to 5, with or without kidney disease, indicate chronic kidney disease. Notes: Determination of stages one and two (with eGFR >59mL/min/1.73 m2) requires estimation of kidney damage for at least three months as defined by structural or functional abnormalities of the kidney, manifested by either:Pathological abnormalities or Markers of kidney damage (including abnormalities in the composition of the blood or urine or abnormalities in imaging tests). Lab Interpretation Abnormal (test code = 22229-3) [facility] with [id number] 07:36:00 Test Item Value Reference Range Interpretation Comments WBC (test code = See_Comment [Automated 4955-2) message] The sy stem which generated this result transmitted reference range : 4.20 - 10.70 10*3/?L. The reference range was not used to interpret this result as normal/abnormal . RBC (test code = See_Comment [Automated 942-8) message] The sy stem which generated this result transmitted reference range : 4.26 - 5.52 10*6/?L. The reference range was not used to interpret this result as normal/abnormal . HGB (test code = 15.2 g/dL 12.2-16.4 718-7) HCT (test code = 44.5 % 38.4-49.3 4544-3) MCV (test code = 82.0 fL 81.7-95.6 787-2) MCH (test code = 28.0 pg 26.1-32.7 785-6) MCHC (test code = 34.2 g/dL 31.2-35 786-4) RDW-SD (test code = 39.8 fL 38.5-51.6 68659-8) RDW-CV (test code = 13.5 % 12.1-15.4 788-0) PLT (test code = See_Comment [Automated 777-3) message] The sy stem which generated this result transmitted reference range : 150 - 328 10*3/ ?L. The reference r matthias was not used to interpret this result as normal/abnormal . MPV (test code = 10.3 fL 9.8-13 14110-8) NRBC/100 WBC (test See_Comment [Automat ed code = 9431269965) message] The system which generated this result transmitted reference range : 0.0 - 10.0 /100 WBCs. The refer ence range was not u sed to interpret th is result as normal/abnormal . NRBC x10^3 (test code <0.01 See_Comment [Auto mated = 6701320459) message] The s ystem which generated this result transmitted reference range : 10*3/?L. The reference range was not used to interpret this result as normal/abnormal . GRAN MAT (NEUT) % 78.8 % (test code = 770-8) IMM GRAN % (test code 0.50 % = 2964487243) LYMPH % (test code = 17.8 % 736-9) MONO % (test code = 2.5 % 5905-5) EOS % (test code = 0.1 % 713-8) BASO % (test code = 0.3 % 706-2) GRAN MAT x10^3(ANC) 5.99 10*3/uL 1.99-6.95 (test code = 8944054066) IMM GRAN x10^3 (test 0.04 10*3/uL 0-0.06 code = 5507968960) LYMPH x10^3 (test code 1.35 10*3/uL 1.09-3.23 = 731-0) MONO x10^3 (test code 0.19 10*3/uL 0.36-1.02 L = 742-7) EOS x10^3 (test code = <0.03 0.06-0.53 L 711-2) BASO x10^3 (test code <0.03 0.01-0.09 = 704-7) Lab Interpretation Abnormal (test code = 57304-7) [facility] Dallas[facility] CHEST 1 VW [id number] 02:35:40 No acute cardiopulmonary process. Disclaimer: Generally, the findings on chest imaging in COVID-19are notspecific, and overlap with other infections, including influenza, H1N1,SARS and MERS.According to the Centers for Disease Control (CDC) and the [employer], viral testing remains the only specific method of diagnosiseven if CXR or CT findings are suggestive of COVID-19. Preliminary Report Dictated by Resident: Aldo Hernandez MD., have reviewed this study and agree with the abovereport.PROCEDURE: CHEST XRAY frontal view., CLINICAL INDICATION: chest pain COMPARISON: Chest radiograph 03/08/2016 FINDINGS: Lungs: No focal consolidation. Pleura: No pleural effusion or pneumothorax is seen. The heart is normal insize. No acute bony abnormality. [facility], Radiant Results Inft User - 07/21/2020 9:36 PM CDTPROCEDURE: CHEST XRAY frontal view., CLINICAL INDICATION: chest pain COMPARISON: Chest radiograph 03/08/2016FINDINGS:Lungs: No focal consolidation.Pleura: No pleural effusion or pneumothorax is seen. The heart is normal insize.No acute bony abnormality.IMPRESSIONNo acute cardiopulmonary process. Disclaimer: Generally, the findings on chest imaging in COVID-19 are notspecific, and overlap with other infections, including influenza, H1N1,SARS and MERS.Accordingto the Centers for Disease Control (CDC) and the [employer], viral testing remainsthe only specific method of diagnosiseven if CXR or CT findings are suggestive of COVID-19. Preliminary Report Dictated by Resident: Aldo Vivas MD., have reviewed this study and agree with the abovereport.[facility] DallasTroponin [id number] 23:11:00 Test Item Value Reference Range Interpretation Comments TROPONIN I (test <0.012 See_Comment [Automated code = 7871290093) message] The system which generated this result transmitted reference range : <=0.034 ng/mL. The reference range was not used to interpr et this result as normal/abnormal . FRANSISCO (test code = Equal or Less than FRANSISCO) 0.034 ng/ml---Normal ?Note: Cardiac troponin begins to rise 3-4 hours after the onset of ischemia. Repeat in 4-6 hours if the sample was drawn within 3-4 hours of the onset of the symptom and found normal. Between 0.035 and 0.120 ng/mL--- Borderline. Questionable myocardial injury or necrosis ? ?Note: Serial measurement may be necessary to confirm or exclude the diagnosis of myocardial injury or necrosis; Clinical correlation (symptoms, EKGs, imaging studies, and others) required; Repeat in 4-6 hours if clinically indicated. ? Equal or Higher than 0.121 ng/mL---Abnormal. Myocardial Injury or Necrosis Likely ? Biotin has been reported to cause a negative bias, interpret results relative to patient's use of biotin. ? Lab Interpretation Normal (test code = 12007-3) [facility] DallasMagnesium [id number] 22:58:00 Test Item Value Reference Range Interpretation Comments MAGNESIUM (test code = 0032233174) 1.8 mg/dL 1.7-2.4 Lab Interpretation (test code = Normal 81729-7) [facility] DallasThyroid Stimulating Hormone (TSH)2020-07-21 22:40:00 Test Item Value Reference Range Interpretation Comments TSH (test code = See_Comment [Automated message] 2773598537) The system RIVS generated this result transmitted ref erence range: 0.45 - 4 .70 mIU/L. The refe rence range was not u sed to interpret this result as normal/abnor mal. Lab Interpretation (test Normal code = 39489-3) [facility] DallasGlycosylated Hemoglobin (A1C)2020-07-21 22:19:00 Test Item Value Reference Range Interpretation Comments HGB A1C (test code = 5.9 % -6 4548-4) FRANSISCO (test code = FRANSISCO) %A1C (NGSP) Interpretation (ADA)4.8-5.6 ? ? Normal or (Non-Diabetic Range)5.7-6.4 ? ? Increased Risk (Pre-Diabetic)>6.5 ?Diabetes Indicated Lab Interpretation Normal (test code = 54121-3) [facility] DallasLipid Panel (Total Cholesterol, Triglycerides, HDL)2020-07-21 22:09:00 Test Item Value Reference Range Interpretation Comments CHOL (test code = 185 mg/dL 120-200 8050679494) HDL (test code = 28 mg/dL >40 L 2302138441) HDLC RATIO (test code = See_Comment H [Au tomated message] 8478265034) The system RIVS generated this result transmit rossy reference range : <=5.0. The refe rence range was not u sed to interpret th is result as normal/abnormal . TRIG (test code = 279 mg/dL 30-170 H 9724707319) LDL CHOL (test code = 101 mg/dL See_Comment [Auto mated message] 97821-0) The system RIVS generated this result transmit rossy reference range : <=160. The refe rence range was not u sed to interpret th is result as normal/abnormal . VLDL (test code = 56 mg/dL 5-60 3855725967) Lab Interpretation (test Abnormal code = 21719-8) [facility] DallasFERRITIN [id number] 20:12:00 Test Item Value Reference Range Interpretation Comments FERRITIN (test code = 219.0 ng/mL 18-464 5468200432) FRANSISCO (test code = FRANSISCO) Biotin has been reported to cause a negative bias, interpret results relative to patient's use of biotin. Lab Interpretation (test Normal code = 64359-1) [facility] DallasD-[id number] 20:00:00 Test Item Value Reference Interpretation Comments Range D-DIMER (test code = See_Comment [Autom ated 4152838911) message] The system which generated this result transmitted reference range : <0.41 ?g/mL (FEU). The reference range was not used to interpret this result as normal/abnormal . FRANSISCO (test code = This test may be FRANSISCO) used in conjunction with a clinical pretest probability (PTP) assessment model to exclude venous thromboembolism (VTE) in patients suspected of deep venous thrombosis (DVT) and pulmonary embolism (PE) A D-Dimer value less than 0.50 ?g/ml (FEU) has a negative predicative value of 96 to 100% (95% CI)and 97 to 100% (95% CI) as an aid in the diagnosis of deep vein thrombosis (DVT) and pulmonary embolism when there is low or moderate pretest probability of PE or DVT. D-Dimer values are expressed in initial fibrinogen equivalent units (FEU)" The assay results should be used with other information, including the clinical context, in forming a diagnosis. Lab Interpretation Normal (test code = 81461-3) [facility] DallasTroponin [id number] 19:50:00 Test Item Value Reference Range Interpretation Comments TROPONIN I (test <0.012 See_Comment [Automated code = 4379940816) message] The system which generated this result transmitted reference range : <=0.034 ng/mL. The reference range was not used to interpr et this result as normal/abnormal . FRANSISCO (test code = Equal or Less than FRANSISCO) 0.034 ng/ml---Normal ?Note: Cardiac troponin begins to rise 3-4 hours after the onset of ischemia. Repeat in 4-6 hours if the sample was drawn within 3-4 hours of the onset of the symptom and found normal. Between 0.035 and 0.120 ng/mL--- Borderline. Questionable myocardial injury or necrosis ? ?Note: Serial measurement may be necessary to confirm or exclude the diagnosis of myocardial injury or necrosis; Clinical correlation (symptoms, EKGs, imaging studies, and others) required; Repeat in 4-6 hours if clinically indicated. ? Equal or Higher than 0.121 ng/mL---Abnormal. Myocardial Injury or Necrosis Likely ? Biotin has been reported to cause a negative bias, interpret results relative to patient's use of biotin. ? Lab Interpretation Normal (test code = 90489-7) [facility] DallasaPTT2020-09-07 19:50:00 Test Item Value Reference Range Interpretation Comments APTT Patient (test See_Comment [Automat ed code = 3173-2) message] The system which generated this result transmitted reference range : 23 - 38 Seconds . The reference range was not used to interpr et this result as normal/abnormal . FRANSISCO (test code = FRANSISCO) The [facility] patient population mean normal value for aPTT is 30 seconds. Lab Interpretation Normal (test code = 39045-2) [facility] DallasFIBRINOGEN2020-09-07 19:50:00 Test Item Value Reference Range Interpretation Comments Fibrinogen (test code = 8859687638) 445 mg/dL 214-470 Lab Interpretation (test code = Normal 98662-0) [facility] DallasProthrombin Time (PT) / [id number] 19:47:00 Test Item Value Reference Range Interpretation Comments PROTIME PATIENT (test See_Comment [Auto mated message] code = 5964-2) The system wh ich generated this result transmitted ref erence range: 12.0 - 1 4.7 Seconds. The re ference range was not u sed to interpret this result as normal/abnor mal. INR (test code = 6301-6) Nor mal INR <1.1; Warfarin Therap eutic range 2.0 to 3. 0 or 2.5 to 3.5, dep ending upon the indica tions. Lab Interpretation (test Normal code = 54999-8) [facility] DallasN-TERMINAL [id number] 19:46:00 Test Item Value Reference Range Interpretation Comments NT-proBNP (test code 27 pg/mL See_Comment [Autom ated = 2739071552) message] The system which generated this result transmitted reference range : <=125. The reference range was not used to interpret this result as normal/abnormal . FRANSISCO (test code = FRANSISCO) Biotin has been reported to cause a negative bias, interpret results relative to patient's use of biotin. Lab Interpretation Normal (test code = 63591-8) [facility] DallasBasi Metabolic Panel (NA, K, CL, CO2, GLUCOSE, BUN, CREATININE, CA)2020-07-21 19:38:00 Test Item Value Reference Range Interpretation Comments NA (test code = 134 mmol/L 135-145 L 7836278876) K (test code = 3.8 mmol/L 3.5-5 8654076511) CL (test code = 99 mmol/L 98-108 3132299365) CO2 TOTAL (test code = 23 mmol/L 23-31 2604350125) AGAP (test code = 2-16 0742822358) BUN (test code = 9 mg/dL 7-23 3637209723) GLUCOSE (test code = 109 mg/dL 70-110 3743411378) CREATININE (test code = 0.82 mg/dL 0.6-1.25 0827273237) CALCIUM (test code = 9.5 mg/dL 8.6-10.6 3011158120) eGFR Calculation mL/min/1.73m2 (Non-) (test code = 6346452422) eGFR Calculation mL/min/1.73m2 () (test code = 7371667951) FRANSISCO (test code = FRANSISCO) Association of Glomerular Filtration Rate (GFR) and Staging of Kidney Disease* + --+ --+ ------+| GFR (mL/min/1.73 m2) ?| With Kidney Damage ?| ?Without Kidney Damage+ --------+ --------+ +| ?>90 ?| ?Stage one ?| ? Normal ?+ ---+ ---+ -------+| ?60-89 ?| ?Stage two ?| ? Decreased GFR ? + --+ --+ ------+| ?30-59 ?| ?Stage three ?| ? Stage three ? + --+ --+ ------+| ?15-29 ?| ?Stage four ? | ? Stage four ?+ ---+ ---+ -------+| ?<15 (or dialysis) ? ?| ?Stage five ? | ? Stage five ?+ ---+ ---+ -------+ *Each stage assumes the associated GFR level has been in effect for at least three months. ?Stages 1 to 5, with or without kidney disease, indicate chronic kidney disease. Notes: Determination of stages one and two (with eGFR >59mL/min/1.73 m2) requires estimation of kidney damage for at least three months as defined by structural or functional abnormalities of the kidney, manifested by either:Pathological abnormalities or Markers of kidney damage (including abnormalities in the composition of the blood or urine or abnormalities in imaging tests). Lab Interpretation Abnormal (test code = 32974-8) [facility] DallasHepatic Function Panel (ALB, T.PRO, BILI T, BU/BC, ALT, AST, ALK PHOS)2020-07-21 19:38:00 Test Item Value Reference Range Interpretation Comments TOTAL BILI (test code = 3450584892) 0.7 mg/dL 0.1-1.1 BILI UNCON (test code = 3300691170) 0.8 mg/dL 0.1-1.1 BILI CONJ (test code = 1090887404) 0.0 mg/dL 0-0.3 T PROTEIN (test code = 4036275408) 8.2 g/dL 6.3-8.2 ALBUMIN (test code = 9861600976) 4.7 g/dL 3.5-5 ALK PHOS (test code = 0057245520) 90 U/L 34-122 ALTv (test code = 1742-6) 51 U/L 5-50 H AST(SGOT) (test code = 0184027740) 32 U/L 13-40 Lab Interpretation (test code = Abnormal 57611-1) [facility] DallasLipase [id number] 19:38:00 Test Item Value Reference Range Interpretation Comments LIPASE (test code = 2233598130) 58 U/L 0-220 Lab Interpretation (test code = Normal 89348-4) [facility] DallasLACTATE [id number] 19:36:00 Test Item Value Reference Range Interpretation Comments LDH (test code = 8705750812) 369 U/L 300-600 Lab Interpretation (test code = Normal 27446-6) [facility] DallasCOVID-19 (ID NOW RAPID TESTING)2020-07-21 19:32:00 Test Item Value Reference Range Interpretation Comments SARS-CoV-2 Rapid ID NOW Positive Not Detected A (test code = 95003-6) FRANSISCO (test code = FRANSISCO) ID NOW COVID-19 Assay is an isothermal nucleic acid amplification test intended for the qualitative detection of nucleic acid from SARS-CoV-2 viral RNA in nasopharyngeal ([employer]) specimens. It is used under Emergency Use Authorization (EUA) by FDA. The limit of detection (LOD) of the assay is 125 Genome Equivalents/mL. A positive result is indicative of the presence of SARS-CoV-2 RNA. ?Clinical correlation with patient history and other diagnostic information is necessary to determine patient infection status. A negative (Not Detected) result does not preclude SARS-CoV-2 infection. In patients with clinical symptoms and other tests that are consistent with SARS-CoV-2 infection, negative results should be treated as presumptive negative and a new specimen should be tested with alternative PCR molecular test. Invalid: Please collect a new specimen for repeat patient testing if clinically indicated. Lab Interpretation Abnormal (test code = 81160-8) [facility] with [id number] 19:20:00 Test Item Value Reference Range Interpretation Comments WBC (test code = See_Comment [Automated 1690-2) message] The sy stem which generated this result transmitted reference range : 4.20 - 10.70 10*3/?L. The reference range was not used to interpret this result as normal/abnormal . RBC (test code = See_Comment H [Automated 589-8) message] The sy stem which generated this result transmitted reference range : 4.26 - 5.52 10*6/?L. The reference range was not used to interpret this result as normal/abnormal . HGB (test code = 15.7 g/dL 12.2-16.4 718-7) HCT (test code = 45.9 % 38.4-49.3 4544-3) MCV (test code = 81.5 fL 81.7-95.6 L 787-2) MCH (test code = 27.9 pg 26.1-32.7 785-6) MCHC (test code = 34.2 g/dL 31.2-35 786-4) RDW-SD (test code = 39.6 fL 38.5-51.6 16738-1) RDW-CV (test code = 13.3 % 12.1-15.4 788-0) PLT (test code = See_Comment [Automated 777-3) message] The sy stem which generated this result transmitted reference range : 150 - 328 10*3/ ?L. The reference r matthias was not used to interpret this result as normal/abnormal . MPV (test code = 10.0 fL 9.8-13 15787-9) NRBC/100 WBC (test See_Comment [Automat ed code = 3169484024) message] The system which generated this result transmitted reference range : 0.0 - 10.0 /100 WBCs. The refer ence range was not u sed to interpret th is result as normal/abnormal . NRBC x10^3 (test code <0.01 See_Comment [Auto mated = 6659063736) message] The s ystem which generated this result transmitted reference range : 10*3/?L. The reference range was not used to interpret this result as normal/abnormal . GRAN MAT (NEUT) % 69.0 % (test code = 770-8) IMM GRAN % (test code 0.40 % = 1254757497) LYMPH % (test code = 22.2 % 736-9) MONO % (test code = 7.8 % 5905-5) EOS % (test code = 0.4 % 713-8) BASO % (test code = 0.2 % 706-2) GRAN MAT x10^3(ANC) 5.65 10*3/uL 1.99-6.95 (test code = 1099920453) IMM GRAN x10^3 (test 0.03 10*3/uL 0-0.06 code = 6736095505) LYMPH x10^3 (test code 1.82 10*3/uL 1.09-3.23 = 731-0) MONO x10^3 (test code 0.64 10*3/uL 0.36-1.02 = 742-7) EOS x10^3 (test code = 0.03 10*3/uL 0.06-0.53 L 711-2) BASO x10^3 (test code <0.03 0.01-0.09 = 704-7) Lab Interpretation Abnormal (test code = 83492-7) [facility] [id number] 08:52:00Surgical Pathology Report Case: [id number] Authorizing Provider: Jigna Diallo MD Collected: 01/24/2019 0834 Ordering Location: [address] Received: 01/24/2019 1414 Service Pathologist: Leon Chacko MD Specimen: St omach, biopsy A. STOMACH, RANDOM BIOPSIES: - CHRONIC GASTRITIS WITH FOCAL ACTIVITY (SEE COMMENT) - NEGATIVE FOR HELICOBACTER PYLORI ORGANISMS BY WARTHIN STARRY STAIN - NEGATIVE FOR INTESTINAL METAPLASIA, DYSPLASIA, MALIGNANCYSigning Pathologist Direct Phone Line: [phone] signed by Leon Chacko MD on 01/25/2019 at 8:52 [id number] pain Stomach biopsy The specimen is received in a formalin-filled container labeled with the patient's information and labeled "stomach biopsy" and consists of four fragments of regan-red soft tissue ranging from 0.1 to 0.5 cm, submitted entirely in A1. CG/ew Performed.The interpretation of this case included the use of immunohistochemistry or special stains. Immunohistochemistry technical testing was performed at [facility], Pathology Laboratory where it was developed [...] qualified to perform high complexity clinical laboratory testing.MAGNESIUM 2019-01-24 07:34:00 Test Item Value Reference Range Interpretation Comments MAGNESIUM (BEAKER) (test code = 1.8 mg/dL 1.6-2.6 627) BASIC METABOLIC [id number] 07:34:00 Test Item Value Reference Range Interpretation Comments SODIUM (BEAKER) 136 meq/L 136-145 (test code = 381) POTASSIUM (BEAKER) 4.1 meq/L 3.5-5.1 (test code = 379) CHLORIDE (BEAKER) 105 meq/L 98-107 (test code = 382) CO2 (BEAKER) (test 23 meq/L 22-29 code = 355) BLOOD UREA NITROGEN 14 mg/dL 7-21 (BEAKER) (test code = 354) CREATININE (BEAKER) 0.84 mg/dL 0.57-1.25 (test code = 358) GLUCOSE RANDOM 97 mg/dL 70-105 (BEAKER) (test code = 652) CALCIUM (BEAKER) 9.4 mg/dL 8.4-10.2 (test code = 697) EGFR (BEAKER) (test 96 mL/min/1.73 ESTIMA ROSSY GFR IS code = 1092) sq m NOT ACCURATE CREATININE CLEARANCE IN PREDICTING GLOMERULAR FILTRATION RATE . ESTIMATED GFR I S NOT APPLICABLE FOR DIALYSIS PATIEN TS. CBC W/PLT COUNT & AUTO [id number] 06:31:00 Test Item Value Reference Range Interpretation Comments WHITE BLOOD CELL COUNT (BEAKER) 9.1 K/ L 3.5-10.5 (test code = 775) RED BLOOD CELL COUNT (BEAKER) 5.62 M/ L 4.63-6.08 (test code = 761) HEMOGLOBIN (BEAKER) (test code = 15.6 GM/DL 13.7-17.5 410) HEMATOCRIT (BEAKER) (test code = 47.4 % 40.1-51.0 411) MEAN CORPUSCULAR VOLUME (BEAKER) 84.3 fL 79.0-92.2 (test code = 753) MEAN CORPUSCULAR HEMOGLOBIN 27.8 pg 25.7-32.2 (BEAKER) (test code = 751) MEAN CORPUSCULAR HEMOGLOBIN CONC 32.9 GM/DL 32.3-36.5 (BEAKER) (test code = 752) RED CELL DISTRIBUTION WIDTH 13.9 % 11.6-14.4 (BEAKER) (test code = 412) PLATELET COUNT (BEAKER) (test 177 K/CU MM 150-450 code = 756) MEAN PLATELET VOLUME (BEAKER) 10.1 fL 9.4-12.4 (test code = 754) NUCLEATED RED BLOOD CELLS 0 /100 WBC 0-0 (BEAKER) (test code = 413) NEUTROPHILS RELATIVE PERCENT 52 % (BEAKER) (test code = 429) LYMPHOCYTES RELATIVE PERCENT 38 % (BEAKER) (test code = 430) MONOCYTES RELATIVE PERCENT 8 % (BEAKER) (test code = 431) EOSINOPHILS RELATIVE PERCENT 3 % (BEAKER) (test code = 432) BASOPHILS RELATIVE PERCENT 0 % (BEAKER) (test code = 437) NEUTROPHILS ABSOLUTE COUNT 4.66 K/ L 1.78-5.38 (BEAKER) (test code = 670) LYMPHOCYTES ABSOLUTE COUNT 3.41 K/ L 1.32-3.57 (BEAKER) (test code = 414) MONOCYTES ABSOLUTE COUNT (BEAKER) 0.70 K/ L 0.30-0.82 (test code = 415) EOSINOPHILS ABSOLUTE COUNT 0.23 K/ L 0.04-0.54 (BEAKER) (test code = 416) BASOPHILS ABSOLUTE COUNT (BEAKER) 0.03 K/ L 0.01-0.08 (test code = 417) IMMATURE GRANULOCYTES-RELATIVE 0 % 0-1 PERCENT (BEAKER) (test code = 2801) [id number] 05:51:00 Test Item Value Reference Range Interpretation Comments MAGNESIUM (BEAKER) 2.2 mg/dL 1.6-2.6 Specimen slightly (test code = 627) hemolyzed BASIC METABOLIC [id number] 05:51:00 Test Item Value Reference Range Interpretation Comments SODIUM (BEAKER) 136 meq/L 136-145 (test code = 381) POTASSIUM (BEAKER) 4.1 meq/L 3.5-5.1 Specimen slightly (test code = 379) hemolyzed CHLORIDE (BEAKER) 105 meq/L 98-107 (test code = 382) CO2 (BEAKER) (test 21 meq/L 22-29 L code = 355) BLOOD UREA NITROGEN 13 mg/dL 7-21 (BEAKER) (test code = 354) CREATININE (BEAKER) 0.95 mg/dL 0.57-1.25 Specimen slightly (test code = 358) hemolyzed GLUCOSE RANDOM 107 mg/dL 70-105 H (BEAKER) (test code = 652) CALCIUM (BEAKER) 9.4 mg/dL 8.4-10.2 (test code = 697) EGFR (BEAKER) (test 84 mL/min/1.73 ESTIMA ROSSY GFR IS code = 1092) sq m NOT ACCURATE CREATININE CLEARANCE IN PREDICTING GLOMERULAR FILTRATION RATE . ESTIMATED GFR I S NOT APPLICABLE FOR DIALYSIS PATIEN TS. CBC W/PLT COUNT & AUTO [id number] 05:35:00 Test Item Value Reference Range Interpretation Comments WHITE BLOOD CELL COUNT (BEAKER) 9.3 K/ L 3.5-10.5 (test code = 775) RED BLOOD CELL COUNT (BEAKER) 5.46 M/ L 4.63-6.08 (test code = 761) HEMOGLOBIN (BEAKER) (test code = 15.0 GM/DL 13.7-17.5 410) HEMATOCRIT (BEAKER) (test code = 46.4 % 40.1-51.0 411) MEAN CORPUSCULAR VOLUME (BEAKER) 85.0 fL 79.0-92.2 (test code = 753) MEAN CORPUSCULAR HEMOGLOBIN 27.5 pg 25.7-32.2 (BEAKER) (test code = 751) MEAN CORPUSCULAR HEMOGLOBIN CONC 32.3 GM/DL 32.3-36.5 (BEAKER) (test code = 752) RED CELL DISTRIBUTION WIDTH 14.0 % 11.6-14.4 (BEAKER) (test code = 412) PLATELET COUNT (BEAKER) (test 185 K/CU MM 150-450 code = 756) MEAN PLATELET VOLUME (BEAKER) 10.5 fL 9.4-12.4 (test code = 754) NUCLEATED RED BLOOD CELLS 0 /100 WBC 0-0 (BEAKER) (test code = 413) NEUTROPHILS RELATIVE PERCENT 56 % (BEAKER) (test code = 429) LYMPHOCYTES RELATIVE PERCENT 33 % (BEAKER) (test code = 430) MONOCYTES RELATIVE PERCENT 8 % (BEAKER) (test code = 431) EOSINOPHILS RELATIVE PERCENT 2 % (BEAKER) (test code = 432) BASOPHILS RELATIVE PERCENT 0 % (BEAKER) (test code = 437) NEUTROPHILS ABSOLUTE COUNT 5.13 K/ L 1.78-5.38 (BEAKER) (test code = 670) LYMPHOCYTES ABSOLUTE COUNT 3.06 K/ L 1.32-3.57 (BEAKER) (test code = 414) MONOCYTES ABSOLUTE COUNT (BEAKER) 0.77 K/ L 0.30-0.82 (test code = 415) EOSINOPHILS ABSOLUTE COUNT 0.22 K/ L 0.04-0.54 (BEAKER) (test code = 416) BASOPHILS ABSOLUTE COUNT (BEAKER) 0.02 K/ L 0.01-0.08 (test code = 417) IMMATURE GRANULOCYTES-RELATIVE 1 % 0-1 PERCENT (BEAKER) (test code = 2801) PET, CARDIAC PERFUSION MULTIPLE STUDIES, REST AND [id number] 16:26:00 Reason for exam:->chest painFINAL REPORT PROCEDURE: MYOCARDIAL PERFUSION PET IMAGING (Rest/Stress) [26451] INDICATION: Chest pain CARDIOVASCULAR PROFILE:Symptoms: Chest pain, anginaCAD History: NoneRisk Fact ors: Obesity (BMI 39.1), dyslipidemia, tobaccoMedications: Aspirin, heparin, [...] (LVEF 51%).LV Volume: Normal.RV Volume: Normal. STRESS FINDINGS:HR: 81 /min (47% of MPHR)BP: 89/55 mmHgPrelim. EKG: No ischemic changes.Symptoms: None (treatment not required).Perfusion: Normal.Wall Motion: Normal (LVEF 66%).LV Volume: Unchanged from rest. IMPRESSION:1. Normal study.2. Normal myocardial perfusion.3. Normal global LV function, which does not deteriorate with stress.4. Normal extracardiac tracer distribution.5. Low-risk findings.6. There is no prior study for comparison. Signed: [facility] Verified Date/Time: 01/22/2019 16:26:04 Reading Location: [address] Reading Room TROPONIN [id number] 12:20:00 Test Item Value Reference Range Interpretation Comments TROPONIN I (BEAKER) (test code = 397) < ng/mL 0.00-0.03 Troponin I (TnI) levels [...] neurological disease, and persistent tachyarrhythmia.TSH/FREE T4 IF [id number] 07:27:00 Test Item Value Reference Range Interpretation Comments THYROID STIMULATING HORMONE 1.18 uIU/mL 0.35-4.94 (BEAKER) (test code = 772) TROPONIN [id number] 07:15:00 Test Item Value Reference Range Interpretation Comments TROPONIN I (BEAKER) (test code = 397) < ng/mL 0.00-0.03 Troponin I (TnI) levels [...] acute neurological disease, and persistent tachyarrhythmia.BASIC METABOLIC [id number] 07:10:00 Test Item Value Reference Range Interpretation Comments SODIUM (BEAKER) 136 meq/L 136-145 (test code = 381) POTASSIUM (BEAKER) 4.5 meq/L 3.5-5.1 Specimen slightly (test code = 379) hemolyzed CHLORIDE (BEAKER) 105 meq/L 98-107 (test code = 382) CO2 (BEAKER) (test 23 meq/L 22-29 code = 355) BLOOD UREA NITROGEN 10 mg/dL 7-21 (BEAKER) (test code = 354) CREATININE (BEAKER) 0.89 mg/dL 0.57-1.25 Specimen slightly (test code = 358) hemolyzed GLUCOSE RANDOM 111 mg/dL 70-105 H (BEAKER) (test code = 652) CALCIUM (BEAKER) 9.2 mg/dL 8.4-10.2 (test code = 697) EGFR (BEAKER) (test 90 mL/min/1.73 ESTIMA ROSSY GFR IS code = 1092) sq m NOT ACCURATE CREATININE CLEARANCE IN PREDICTING GLOMERULAR FILTRATION RATE . ESTIMATED GFR I S NOT APPLICABLE FOR DIALYSIS PATIEN TS. [id number] 07:07:00 Test Item Value Reference Range Interpretation Comments MAGNESIUM (BEAKER) 2.5 mg/dL 1.6-2.6 Specimen slightly (test code = 627) hemolyzed [id number] 07:01:00 Test Item Value Reference Range Interpretation Comments PARTIAL THROMBOPLASTIN TIME 53.6 seconds 22.5-36.0 H (BEAKER) (test code = 760) CBC W/PLT COUNT & AUTO [id number] 06:54:00 Test Item Value Reference Range Interpretation Comments WHITE BLOOD CELL COUNT (BEAKER) 8.7 K/ L 3.5-10.5 (test code = 775) RED BLOOD CELL COUNT (BEAKER) 5.50 M/ L 4.63-6.08 (test code = 761) HEMOGLOBIN (BEAKER) (test code = 15.5 GM/DL 13.7-17.5 410) HEMATOCRIT (BEAKER) (test code = 46.3 % 40.1-51.0 411) MEAN CORPUSCULAR VOLUME (BEAKER) 84.2 fL 79.0-92.2 (test code = 753) MEAN CORPUSCULAR HEMOGLOBIN 28.2 pg 25.7-32.2 (BEAKER) (test code = 751) MEAN CORPUSCULAR HEMOGLOBIN CONC 33.5 GM/DL 32.3-36.5 (BEAKER) (test code = 752) RED CELL DISTRIBUTION WIDTH 14.1 % 11.6-14.4 (BEAKER) (test code = 412) PLATELET COUNT (BEAKER) (test 198 K/CU MM 150-450 code = 756) MEAN PLATELET VOLUME (BEAKER) 10.4 fL 9.4-12.4 (test code = 754) NUCLEATED RED BLOOD CELLS 0 /100 WBC 0-0 (BEAKER) (test code = 413) NEUTROPHILS RELATIVE PERCENT 50 % (BEAKER) (test code = 429) LYMPHOCYTES RELATIVE PERCENT 39 % (BEAKER) (test code = 430) MONOCYTES RELATIVE PERCENT 7 % (BEAKER) (test code = 431) EOSINOPHILS RELATIVE PERCENT 3 % (BEAKER) (test code = 432) BASOPHILS RELATIVE PERCENT 0 % (BEAKER) (test code = 437) NEUTROPHILS ABSOLUTE COUNT 4.35 K/ L 1.78-5.38 (BEAKER) (test code = 670) LYMPHOCYTES ABSOLUTE COUNT 3.43 K/ L 1.32-3.57 (BEAKER) (test code = 414) MONOCYTES ABSOLUTE COUNT (BEAKER) 0.65 K/ L 0.30-0.82 (test code = 415) EOSINOPHILS ABSOLUTE COUNT 0.26 K/ L 0.04-0.54 (BEAKER) (test code = 416) BASOPHILS ABSOLUTE COUNT (BEAKER) 0.03 K/ L 0.01-0.08 (test code = 417) IMMATURE GRANULOCYTES-RELATIVE 0 % 0-1 PERCENT (BEAKER) (test code = 2801) TROPONIN [id number] 21:31:00 Test Item Value Reference Range Interpretation Comments TROPONIN I (BEAKER) (test code = 397) < ng/mL 0.00-0.03 Troponin I (TnI) levels [...] acidosis, acute neurological disease, and persistent tachyarrhythmia.HEMOGLOBIN [id number] 16:43:00 Test Item Value Reference Range Interpretation Comments HEMOGLOBIN A1C (BEAKER) (test code = 5.8 % 4.3-6.1 368) TROPONIN [id number] 13:42:00 Test Item Value Reference Range Interpretation Comments TROPONIN I (BEAKER) (test code = 397) < ng/mL 0.00-0.03 Troponin I (TnI) levels [...] failure, acidosis, acute neurological disease, and persistent tachyarrhythmia.[id number] 13:37:00 Test Item Value Reference Range Interpretation Comments PARTIAL THROMBOPLASTIN TIME 53.8 seconds 22.5-36.0 H (BEAKER) (test code = 760) [id number] 08:07:00 Test Item Value Reference Range Interpretation Comments PARTIAL THROMBOPLASTIN TIME 52.7 seconds 22.5-36.0 H (BEAKER) (test code = 760) CBC W/PLT COUNT & AUTO [id number] 06:33:00 Test Item Value Reference Range Interpretation Comments WHITE BLOOD CELL COUNT (BEAKER) 7.9 K/ L 3.5-10.5 (test code = 775) RED BLOOD CELL COUNT (BEAKER) 5.46 M/ L 4.63-6.08 (test code = 761) HEMOGLOBIN (BEAKER) (test code = 15.1 GM/DL 13.7-17.5 410) HEMATOCRIT (BEAKER) (test code = 46.3 % 40.1-51.0 411) MEAN CORPUSCULAR VOLUME (BEAKER) 84.8 fL 79.0-92.2 (test code = 753) MEAN CORPUSCULAR HEMOGLOBIN 27.7 pg 25.7-32.2 (BEAKER) (test code = 751) MEAN CORPUSCULAR HEMOGLOBIN CONC 32.6 GM/DL 32.3-36.5 (BEAKER) (test code = 752) RED CELL DISTRIBUTION WIDTH 14.2 % 11.6-14.4 (BEAKER) (test code = 412) PLATELET COUNT (BEAKER) (test 185 K/CU MM 150-450 code = 756) MEAN PLATELET VOLUME (BEAKER) 10.2 fL 9.4-12.4 (test code = 754) NUCLEATED RED BLOOD CELLS 0 /100 WBC 0-0 (BEAKER) (test code = 413) NEUTROPHILS RELATIVE PERCENT 42 % (BEAKER) (test code = 429) LYMPHOCYTES RELATIVE PERCENT 46 % (BEAKER) (test code = 430) MONOCYTES RELATIVE PERCENT 8 % (BEAKER) (test code = 431) EOSINOPHILS RELATIVE PERCENT 3 % (BEAKER) (test code = 432) BASOPHILS RELATIVE PERCENT 0 % (BEAKER) (test code = 437) NEUTROPHILS ABSOLUTE COUNT 3.31 K/ L 1.78-5.38 (BEAKER) (test code = 670) LYMPHOCYTES ABSOLUTE COUNT 3.62 K/ L 1.32-3.57 H (BEAKER) (test code = 414) MONOCYTES ABSOLUTE COUNT (BEAKER) 0.65 K/ L 0.30-0.82 (test code = 415) EOSINOPHILS ABSOLUTE COUNT 0.24 K/ L 0.04-0.54 (BEAKER) (test code = 416) BASOPHILS ABSOLUTE COUNT (BEAKER) 0.03 K/ L 0.01-0.08 (test code = 417) IMMATURE GRANULOCYTES-RELATIVE 0 % 0-1 PERCENT (BEAKER) (test code = 2801) B-TYPE NATRIURETIC FACTOR (BNP)[id number] 06:20:00 Test Item Value Reference Range Interpretation Comments B-TYPE NATRIURETIC PEPTIDE (BEAKER) < pg/mL 0-100 (test code = 700) TROPONIN [id number] 06:19:00 Test Item Value Reference Range Interpretation Comments TROPONIN I (BEAKER) (test code = 397) < ng/mL 0.00-0.03 Troponin I (TnI) levels [...] failure, acidosis, acute neurological disease, and persistent tachyarrhythmia.[id number] 06:15:00 Test Item Value Reference Range Interpretation Comments PARTIAL THROMBOPLASTIN TIME > seconds 22.5-36.0 HH (BEAKER) (test code = 760) LIPID [id number] 06:12:00 Test Item Value Reference Range Interpretation Comments TRIGLYCERIDES (BEAKER) 310 mg/dL Speci men slightly (test code = 540) hemolyzed CHOLESTEROL (BEAKER) 153 mg/dL Specime n slightly (test code = 631) hemolyzed HDL CHOLESTEROL (BEAKER) 24 mg/dL (test code = 976) LDL CHOLESTEROL 67 mg/dL CALCULATED (BEAKER) (test code = 633) Triglyceride Reference Range: Low Risk <150 Borderline 150-199 High Risk 200-499 Very High Risk >=500Cholesterol Reference Range: Low Risk <200 Borderline 200-239 High Risk >240HDL Cholesterol Reference Range: Low Risk >=60 High Risk <40LDL Cholesterol Reference Range: Optimal <100 Near Optimal 100-129 Borderline 130-159 High 160-189 Very High [id number] 06:11:00 Test Item Value Reference Range Interpretation Comments MAGNESIUM (BEAKER) 1.9 mg/dL 1.6-2.6 Specimen slightly (test code = 627) hemolyzed COMPREHENSIVE METABOLIC [id number] 06:11:00 Test Item Value Reference Range Interpretation Comments TOTAL PROTEIN 6.1 gm/dL 6.0-8.3 Specimen sligh tly (BEAKER) (test code = hemoly zed 770) ALBUMIN (BEAKER) 3.4 g/dL 3.5-5.0 L Specimen sl ightly (test code = 1145) hemolyzed ALKALINE PHOSPHATASE 65 U/L 40-150 (BEAKER) (test code = 346) BILIRUBIN TOTAL 0.5 mg/dL 0.2-1.2 Specimen sli ghtly (BEAKER) (test code = hemoly zed 377) SODIUM (BEAKER) (test 139 meq/L 136-145 code = 381) POTASSIUM (BEAKER) 3.4 meq/L 3.5-5.1 L Specimen slightly (test code = 379) hemolyzed CHLORIDE (BEAKER) 110 meq/L 98-107 H (test code = 382) CO2 (BEAKER) (test 21 meq/L 22-29 L code = 355) BLOOD UREA NITROGEN 13 mg/dL 7-21 (BEAKER) (test code = 354) CREATININE (BEAKER) 0.81 mg/dL 0.57-1.25 Specimen slightly (test code = 358) hemolyzed GLUCOSE RANDOM 126 mg/dL 70-105 H (BEAKER) (test code = 652) CALCIUM (BEAKER) 8.0 mg/dL 8.4-10.2 L (test code = 697) AST (SGOT) (BEAKER) 20 U/L 5-34 Specimen slightly (test code = 353) hemolyzed ALT (SGPT) (BEAKER) 43 U/L 6-55 Specimen slightly (test code = 347) hemolyzed EGFR (BEAKER) (test 100 ESTIMATE D GFR IS code = 1092) mL/min/1.73 sq NOT ACCURA TE m CREATININE CLEARANCE IN PREDICTING GLOMERULAR FILTRATION RATE . ESTIMATED GFR I S NOT APPLICABLE FOR DIALYSIS PATIEN TS.
[2022-03-04] MEDS ORDERED: MORPHINE 4 MG/ML SYR ONE (14:19)
[2022-03-04] MEDS ORDERED: NA CHLORIDE 0.9% 1,000 ML ONE (14:19)
[2022-03-04] MEDS ORDERED: ONDANSETRON 4 MG/2 ML VIAL ONE (14:19)
[2022-03-04 14:32] LABS: Hematocrit 53.5 % (39.6-49.0); Lymphocytes % 13.1 % (15.3-44.8); MPV 8.6 fL (7.6-11.3); RBC Red Blood Cell Count 6.39 M/uL (4.33-5.43)
[2022-03-04 15:01] LABS: Albumin 4.3 g/dL (3.4-5.0); Bilirubin Total 0.6 mg/dL (0.2-1.0); Protein, Total 8.7 g/dL (6.4-8.2)
[2022-03-04 15:02] LABS: Potassium 4.6 mmol/L (3.5-5.1)
--- NOTE | 2022-03-04 15:38 | RAD REPORT ---
EXAM DESCRIPTION: CTAbdomen Pelvis W Contrast - 03/04/2022 3:30 pm CLINICAL HISTORY: LLQ abdominal pain COMPARISON: CT ABD PELVIS W CONTRAST dated 03/22/2008 TECHNIQUE: CT of the abdomen and pelvis was performed. All CT scans are performed using dose optimization technique as appropriate and may include automated exposure control or mA/KV adjustment according to patient size. FINDINGS: Lower chest: No acute abnormality. Liver: Hepatic steatosis Biliary: No biliary ductal dilatation. Stomach: No significant focal abnormality. Duodenum: No significant focal abnormality. Pancreas: No significant abnormality. Spleen: No significant abnormality. Adrenal: No suspicious lesions. Kidney/ureter: No hydronephrosis. No renal calculi. 8 mm low-density right renal cyst. Retroperitoneum: No retroperitoneal adenopathy. Vascular: No aneurysm. Bowel: Normal appendix.. Peritoneum: No ascites or free air. Small fat containing inguinal hernias. Bladder: Grossly unremarkable. Reproductive: No adnexal masses. Bones: No acute fracture. Other: n/a IMPRESSION: No acute intra-abdominal or pelvic finding.
[2022-03-04] MEDS ORDERED: DICYCLOMINE HCL 20 MG/2 ML AMP IM ONE (15:53)
[2022-03-04] MEDS ORDERED: NA CHLORIDE 0.9% 500 ML ONE (15:54)
--- NOTE | 2022-03-04 16:42 | EDPHYS ---
Physician Documentation [facility] Name: Blake Wilson Age: 56 yrs Sex: Male : 1965 Arrival Date: 03/04/2022 Time: 13:36 Bed 16 Private MD: ED Physician Ginger Baird HPI: 03/04 14:24 This 56 yrs old Male presents to ER via Ambulatory with complaints of la1 Diarrhea, Abdominal Pain. 14:24 The patient presents to the emergency department with diarrhea, 10 times today, la1 abdominal pain, of the epigastric area, left upper quadrant and left lower quadrant, described as sharp, and does not radiate. Onset: The symptoms/episode began/occurred this morning. Possible causes: unknown. The symptoms are aggravated by movement, pressure, The symptoms are alleviated by nothing. Associated signs and symptoms: Pertinent positives: abdominal pain, diarrhea. Severity of symptoms: At their worst the symptoms were severe in the emergency department the symptoms are unchanged. The patient has not experienced similar symptoms in the past. Severe Abd pain, diarrhea >10 days since this morning. Historical: - Allergies: 13:47 No Known Allergies; ab2 - Home Meds: 15:00 Prevacid Oral [Active]; jg9 - PMHx: 13:47 COPD; gastric ulcer; ab2 - Immunization history:: Adult Immunizations up to date. - Social history:: Smoking status: Patient denies any tobacco usage or history of. ROS: 14:25 Constitutional: Negative for fever, chills, and weight loss, Eyes: Negative for injury, la1 pain, redness, and discharge, ENT: Negative for injury, pain, and discharge, Neck: Negative for injury, pain, and swelling, Cardiovascular: Negative for chest pain, palpitations, and edema, Respiratory: Negative for shortness of breath, cough, wheezing, and pleuritic chest pain, Back: Negative for injury and pain, MS/Extremity: Negative for injury and deformity. 14:25 Abdomen/GI: Positive for abdominal pain, nausea, diarrhea, abdominal cramps. Exam: 14:25 Constitutional: This is a well developed, well nourished patient who is awake, alert, la1 and in no acute distress. Head/Face: Normocephalic, atraumatic. Eyes: Pupils equal round and reactive to light, extra-ocular motions intact. ENT: Mucous membranes moist. Neck: Supple, full range of motion without nuchal rigidity, or vertebral point tenderness. No Meningismus. Chest/axilla: Normal chest wall appearance and motion. Nontender with no deformity. No lesions are appreciated. Cardiovascular: Regular rate and rhythm with a normal S1 and S2. No gallops, murmurs, or rubs. Normal PMI, no JVD. No pulse deficits. Respiratory: Lungs have equal breath sounds bilaterally, clear to auscultation and percussion. No rales, rhonchi or wheezes noted. No increased work of breathing, no retractions or nasal flaring. 14:25 Skin: Warm, dry with normal turgor. Normal color with no rashes, no lesions, and no evidence of cellulitis. MS/ Extremity: Pulses equal, no cyanosis. Neurovascular intact. Full, normal range of motion. Neuro: Awake and alert, GCS 15, oriented to person, place, time, and situation. Cranial nerves II-XII grossly intact. Motor strength 5/5 in all extremities. Sensory grossly intact. Cerebellar exam normal. Normal gait. 14:25 Abdomen/GI: Inspection: obese Bowel sounds: normal, Palpation: soft, in all quadrants, moderate abdominal tenderness, in the epigastric area, left upper quadrant and left lower quadrant. Vital Signs: 13:45 BP 103 / 68; Pulse 88; Resp 19; Temp 98.0; Pulse Ox 98% on R/A; Weight 99.34 kg; Height ab2 5 ft. 4 in. (162.56 cm); Pain 10/10; 14:45 BP 114 / 69; Pulse 90; Resp 12 S; Pulse Ox 95% on R/A; jg9 13:45 Body Mass Index 37.59 (99.34 kg, 162.56 cm) ab2 MDM: 14:26 Patient medically screened. la1 16:39 Data reviewed: vital signs, nurses notes, lab test result(s), radiologic studies, CT la1 scan, and as a result, I will discharge patient. Data interpreted: Pulse oximetry: on room air is 95 %. Interpretation: normal. Counseling: I had a detailed discussion with the patient and/or guardian regarding: the historical points, exam findings, and any diagnostic results supporting the discharge/admit diagnosis, lab results, radiology results, the need for outpatient follow up, to return to the emergency department if symptoms worsen or persist or if there are any questions or concerns that arise at home. Medication response: Bentyl. Response to treatment: the patient's symptoms have markedly improved after treatment, and as a result, I will discharge patient. Special discussion: Based on the patient's Hx, exam, and Dx evaluation, there is no indication for emergent surgery or inpatient Tx. It is understood by the patient/guardian that if the Sx's persist or worsen they need to return immediately for re-evaluation. 03/04 13:58 Order name: CBC with Diff; Complete Time: 14:47 la1 03/04 13:58 Order name: CMP; Complete Time: 15:18 la03/04 13:58 Order name: Lipase; Complete Time: 15:18 la03/04 14:14 Order name: CT Abd/Pelvis - IV Contrast Only; Complete Time: 15:41 la1 03/04 14:15 Order name: COVID-19 SARS RT PCR (Document "Date of Onset" if Symptomatic); Complete la1 Time: 15:18 03/04 13:58 Order name: IV Saline Lock; Complete Time: 14:24 la1 03/04 13:58 Order name: Labs collected and sent; Complete Time: 14:24 la1 Administered Medications: 14:23 Drug: NS 0.9% 1000 ml Route: IV; Rate: 1000 ml; Site: right antecubital; ab2 16:56 Follow up: Response: No adverse reaction jg9 14:24 Drug: morphine 4 mg Route: IVP; Site: right antecubital; ab2 16:57 Follow up: Response: No adverse reaction jg9 14:24 Drug: Zofran (Ondansetron) 4 mg Route: IVP; Site: right antecubital; ab2 15:00 Follow up: Response: No adverse reaction jg9 15:54 Drug: Bentyl (dicyclomine) 20 mg Route: IM; Site: left deltoid; jg9 16:55 Follow up: Response: No adverse reaction; Pain is decreased jg9 15:54 Drug: NS 0.9% 500 ml Route: IV; Rate: bolus; Site: left antecubital; jg9 16:55 Follow up: IV Status: Completed infusion; IV Intake: 500ml jg9 Disposition: 18:44 Co-signature as Attending Physician, Ginger Baird MD. ma2 Disposition Summary: 03/04/22 16:41 Discharge Ordered Location: Home la1 Problem: new la1 Symptoms: have improved la1 Condition: Stable la1 Diagnosis - Abdominal pain, Generalized la1 - Diarrhea, unspecified la1 Followup: la1 - With: Private Physician - When: 2 - 3 days - Reason: Recheck today's complaints, Re-evaluation by your physician Followup: la1 - With: Emergency Department - When: As needed - Reason: Recheck today's complaints, Re-evaluation by your physician Discharge Instructions: - Discharge Summary Sheet la1 - Abdominal Pain, Adult la1 - Food Choices to Help Relieve Diarrhea, Adult la1 - Diarrhea, Adult la1 Forms: - Medication Reconciliation Form la1 - Thank You Letter la1 Prescriptions: - Zofran 4 mg Oral Tablet - take 1 tablet by ORAL route every 12 hours As needed; 20 tablet; Refills: 0, la1 Product Selection Permitted - dicyclomine 20 mg Oral Tablet - take 1 tablet by ORAL route 4 times per day; 20 tablet; Refills: 0, Product la1 Selection Permitted Signatures: Dispatcher [employer] EDMS Quincy Patterson, CORE CLEANER-C CORE CLEANER-Cla1 Ginger Baird MD MD ma2 Cady Crain, RN RN jg9 Henry Wade Jennifer, CORE CLEANER CORE CLEANER jh7 Corrections: (The following items were deleted from the chart) 15:45 13:58 Urine Dipstick-Ancillary ordered. la1 la1
--- NOTE | 2022-03-04 16:42 | ER ---
Nurse's Notes [facility] Name: Blake Wilson Age: 56 yrs Sex: Male : 1965 Arrival Date: 03/04/2022 Time: 13:36 Bed 16 Private MD: Diagnosis: Abdominal pain, Generalized;Diarrhea, unspecified Presentation: 03/04 13:45 Chief complaint: Patient states: "I've been having nausea and diarrhea and stomach pain ab2 since 4 am. Now I have the cold sweats." Pt c/o n/d and LUQ and LLQ abdominal pain. Coronavirus screen: Vaccine status: Patient reports receiving the 2nd dose of the covid vaccine. Client denies travel out of the [place] in the last 14 days. Ebola Screen: Patient negative for fever greater than or equal to 101.5 degrees Fahrenheit, and additional compatible Ebola Virus Disease symptoms Patient denies exposure to infectious person. Patient denies travel to an Ebola-affected area in the 21 days before illness onset. No symptoms or risks identified at this time. Initial Sepsis Screen: Does the patient meet any 2 criteria? No. Patient's initial sepsis screen is negative. Does the patient have a suspected source of infection? No. Patient's initial sepsis screen is negative. Risk Assessment: Do you want to hurt yourself or someone else? Patient reports no desire to harm self or others. Onset of symptoms is unknown. 13:45 Method Of Arrival: Ambulatory ab2 13:45 Acuity: SANGEETA 3 ab2 Triage Assessment: 13:48 General: Appears in no apparent distress. uncomfortable, Behavior is calm, cooperative, ab2 appropriate for age. Pain: Complains of pain in left upper quadrant and left lower quadrant. Neuro: Level of Consciousness is awake, alert, obeys commands, Oriented to person, place, time, situation, Appropriate for age Surface Mount [employer] Operator are equal bilaterally. Respiratory: Airway is patent Respiratory effort is even, unlabored, Respiratory pattern is regular, symmetrical. GI: Abdomen is round Reports lower abdominal pain, upper abdominal pain, diarrhea, nausea. Derm: Skin is diaphoretic. Historical: - Allergies: 13:47 No Known Allergies; ab2 - Home Meds: 15:00 Prevacid Oral [Active]; jg9 - PMHx: 13:47 COPD; gastric ulcer; ab2 - Immunization history:: Adult Immunizations up to date. - Social history:: Smoking status: Patient denies any tobacco usage or history of. Screenin:00 Abuse screen: Denies threats or abuse. Denies injuries from another. Nutritional jg9 screening: No deficits noted. Tuberculosis screening: No symptoms or risk factors identified. Fall Risk None identified. Vital Signs: 13:45 BP 103 / 68; Pulse 88; Resp 19; Temp 98.0; Pulse Ox 98% on R/A; Weight 99.34 kg; Height ab2 5 ft. 4 in. (162.56 cm); Pain 10/10; 14:45 BP 114 / 69; Pulse 90; Resp 12 S; Pulse Ox 95% on R/A; jg9 13:45 Body Mass Index 37.59 (99.34 kg, 162.56 cm) ab2 ED Course: 13:36 Patient arrived in ED. as 13:47 Quincy Patterson FNP-C is [facility]. la1 13:47 Ginger Baird MD is Attending Physician. la1 13:47 Triage completed. ab2 13:48 Arm band placed on right wrist. ab2 14:23 Inserted saline lock: 22 gauge in right antecubital area, using aseptic technique. ab2 Blood collected. 14:24 CBC with Diff Sent. ab2 14:24 CMP Sent. ab2 14:24 Lipase Sent. ab2 14:33 Cady Crain, RN is Primary Nurse. jg9 15:00 Patient has correct armband on for positive identification. Bed in low position. Call jg9 light in reach. Side rails up X 1. 15:31 CT Abd/Pelvis - IV Contrast Only In Process Unspecified. EDMS 16:55 No provider procedures requiring assistance completed. jg9 16:56 IV discontinued. jg9 Administered Medications: 14:23 Drug: NS 0.9% 1000 ml Route: IV; Rate: 1000 ml; Site: right antecubital; ab2 16:56 Follow up: Response: No adverse reaction jg9 14:24 Drug: morphine 4 mg Route: IVP; Site: right antecubital; ab2 16:57 Follow up: Response: No adverse reaction jg9 14:24 Drug: Zofran (Ondansetron) 4 mg Route: IVP; Site: right antecubital; ab2 15:00 Follow up: Response: No adverse reaction jg9 15:54 Drug: Bentyl (dicyclomine) 20 mg Route: IM; Site: left deltoid; jg9 16:55 Follow up: Response: No adverse reaction; Pain is decreased jg9 15:54 Drug: NS 0.9% 500 ml Route: IV; Rate: bolus; Site: left antecubital; jg9 16:55 Follow up: IV Status: Completed infusion; IV Intake: 500ml jg9 Intake: 16:55 IV: 500ml; Total: 500ml. jg9 Outcome: 16:41 Discharge ordered by . la1 16:55 Discharged to home ambulatory. jg9 16:55 Condition: improved 16:55 Discharge instructions given to patient, family. 16:55 Instructed on discharge instructions, follow up and referral plans. Demonstrated understanding of instructions, follow-up care, Prescriptions given X 2. 16:56 Patient left the ED. jg9 Signatures: Dispatcher [employer] Mary Tavares Lee, CYCLING INSTRUCTOR-C CYCLING INSTRUCTOR-Cla1 Cady Crain, RN RN jg9 Henry Wade ab2
[2022-03-04 17:02] VITALS: TEMP 98
[2022-03-04 17:03] VITALS: BP 114/69; O2SAT 95
== END 2022-03-04 16:56 | disposition home or self-care (01) ==
LOC: ER 13:34
DX: R10.84 Generalized abdominal pain (principal); R19.7 Diarrhea, unspecified; J44.9 Chronic obstructive pulmonary disease, unspecified; K25.9 Gastric ulcer, unspecified as acute or chronic, without hemorrhage or perforation; Z20.822 Contact with and (suspected) exposure to COVID-19
CPT/HCPCS: 36415; 74177; 80053; 83690; 85025; 96361; 96372; 96374; 96375; 99284; J0500; J2405; J7030; J7040; Q9967; U0003

== ENCOUNTER 2022-10-08 17:14 | Emergency (ER) | payer SELFPAY ==
--- OUTSIDE RECORDS SUMMARY | 2022-10-08 17:20 | XMS REPORT | Continuity of Care Document ---
:1965 Author Organization [facility] t Address [address] [place] [address] Care Team Providers Name Role Phone System, Provider Not In Primary Care Physician Unavailable KELIN KRAUS Attending Clinician Unavailable Harvey VILLANUEVA, Brodie Gill Attending Clinician Kelin Kraus MD Attending Clinician SANJIV MICHELLE Attending Clinician Unavailable Sanjiv Norris Attending Clinician SHMUEL FLORES Attending Clinician Unavailable Doctor Unassigned, [place] Attending Clinician Unavailable Lab, Adc Fam Pob I Attending Clinician Unavailable Marlene Garay Attending Clinician MARLENE GONZALEZ Attending Clinician Unavailable Bhumika Hernandez RN Attending Clinician Vilma [place] Attending Clinician Dot Jimenez Attending Clinician Rell ROSALES, Magui Cristobal Attending Clinician Naif Coppola MD Attending Clinician MAGUI HERNÁNDEZ Attending Clinician Unavailable NATALIE CHEN Attending Clinician Unavailable BRODIE GABRIEL Admitting Clinician Unavailable Naif Coppola MD Admitting Clinician NATALIE CHEN Admitting Clinician Unavailable Payers Payer Name Policy Type Policy Number Effective Date Expiration Date [facility] [id number] 2015 CHOICE MEDICAID 00:00:00 Problems Condition Condition Condition Status Onset Resolution Last Treating Co mments Source Name Details Category Date Date Treatment Clinician Date COVID-19 COVID-19 Disease Active Unive rs virus virus 9-08 [place] [address] [place] [address] Branch Chest Chest Disease Active Univers pain, rule pain, rule 9-07 [place] of out acute out acute [place] myocardial myocardial 00 Me dical infarction infarction Br anch Obesity Obesity Disease Active Univers (BMI (BMI 9-07 ity of 30-39.9) 30-39.9) 00:00: [address] Unstable [facility] [address] Chest pain Chest pain Disease Active U nivers 4-25 ity of 00:00: [address] HLD HLD Disease Active Univers (hyperlipi (hyperlipi 4-25 it y of demia) demia) 00:00: [address] Branch COPD COPD Disease Active Univers (chronic (chronic 4-25 ity of obstructiv obstructiv [place] 00 Medical pulmonary pulmonary Bran ch disease) disease) Family Family Disease Active Univers history of history of 4-25 [place] of premature premature 00[place] CAD 00 [facility] Branch Allergies, Adverse Reactions, Alerts Allergy Allergy Status Severity Reaction(s) Onset Inactive Treating Comm ents Source Name Type Date Date Clinician NO KNOWN Drug Active Univers ALLERGIE Class [facility] Family History Family Member Diagnosis Comments Start Date Stop Date Source Natural father Heart disease [facility] Social History Social Habit Start Date Stop Date Quantity Comments Source History SDOH [facility] Alcohol Binge Medical Lizzie ter History SDOH [facility] Alcohol Comment Medical C enter History SDOH [facility] Alcohol Std Drinks Medica l Center History of tobacco User of [facility] use smokeless [facility] tobacco Exposure to 2022-07-31 2022-08-10 Not sure University SARS-CoV-2 (event) 00:00:00 06:31:00 [facility] Alcohol intake 2019-01-24 2019-01-[address] [facility] 00:[facility]:00 00:00:00 non-drinker of Medical Ce nter alcohol (finding) Cigarettes smoked 2019-01-21 2019-01-[address] [facility] current (pack per 00:00:00 00:00:00 Medical Center day) - Reported Cigarette 2019-01-21 2019-01-[address] [facility] pack-years 00:00:00 00:00:00 [facility] Tobacco use and 2019-01-21 2019-01-[address] [facility] exposure 00:00:00 00:00:00 [facility] Center History SDOH 2019-01-21 2019-01-[address] [facility] Alcohol Frequency 00:00:00 00:00:00 [facility] Sex Assigned At [address] [facility] [address] [facility] 00:00:00 00:00:00 [facility] Smoking Status Start Date Stop Date Source Ex-smoker 2016-03-08 00:00:00 2016-03-08 00:00:00 [facility] Medications Ordered Filled Start Stop Current Ordering Indication Dosage Frequency Signature Comments Components Source Medication Medication Date Date Medication? Clinician (SIG) Name Name HYDROcodone 2021- No 1{tbl} 1 tablet, Univers -acetaminop 08-10 Oral, ONCE i ty of hen (NORCO) 13:00: 12:00 NOW, 1 [place] 10-325 mg 00 :00 dose, On Medica l tablet 1 Tue Branch tablet 08/10/22 at 0800, Routine traMADoL 50 Yes [id number] 50mg Take 1 Univ ers mg tablet 08-10 tablet by ity o f 00:00: mouth [place] 00 every 6 Medical (six) Branch hours as needed (pain). Indication s: acute pain predniSONE 2021-2021- Yes [id number] 40mg Take 2 Univers 20 mg 08-10 [id number] tablets by ity o f tablet 00:00: 04:59 mouth in [place] 00 :00 the Medical morning Branch for 7 days. ibuprofen 2021- No [id number] 800mg Take 1 Univers 800 mg 08-10 [id number] tablet by ity o f tablet 00:00: 00:00 mouth [place] 00 :00 every 8 Medical (eight) Branch hours as needed for Pain (scale 4-6). ergocalcife 2020-0 Yes [id number] Take 1 Univers rol, 9-15 capsule by ity of vitamin d2, 00:00: mouth [place] 1,250 mcg 00 weekly. Medical (50,000 Branch unit) capsule ergocalcife 2020-0 Yes [id number] Take 1 Univers rol, 9-15 capsule by ity of vitamin d2, 00:00: mouth [place] 1,250 mcg 00 weekly. Medical (50,000 Branch unit) capsule ergocalcife 2020-0 Yes [id number] Take 1 Univers rol, 9-15 capsule by ity of vitamin d2, 00:00: mouth [place] 1,250 mcg 00 weekly. Medical (50,000 Branch unit) capsule ergocalcife 2020-0 Yes [id number] Take 1 Univers rol, 9-15 capsule by ity of vitamin d2, 00:00: mouth [place] 1,250 mcg 00 weekly. Medical (50,000 Branch unit) capsule ergocalcife 2020-0 Yes [id number] Take 1 Univers rol, 9-15 capsule by ity of vitamin d2, 00:00: mouth [place] 1,250 mcg 00 weekly. Medical (50,000 Branch unit) capsule ergocalcife 2020-0 Yes [id number] Take 1 Univers rol, 9-15 capsule by ity of vitamin d2, 00:00: mouth [place] 1,250 mcg 00 weekly. Medical (50,000 Branch unit) capsule ergocalcife 2020-0 Yes [id number] Take 1 Univers rol, 9-15 capsule by ity of vitamin d2, 00:00: mouth [place] 1,250 mcg 00 weekly. Medical (50,000 Branch unit) capsule ergocalcife 2020-0 Yes [id number] Take 1 Univers rol, 9-15 capsule by ity of vitamin d2, 00:00: mouth [place] 1,250 mcg 00 weekly. Medical (50,000 Branch unit) capsule ergocalcife 2020-0 Yes [id number] Take 1 Univers rol, 9-15 capsule by ity of vitamin d2, 00:00: mouth [place] 1,250 mcg 00 weekly. Medical (50,000 Branch unit) capsule ergocalcife 2020-0 Yes [id number] Take 1 Univers rol, 9-15 capsule by ity of vitamin d2, 00:00: mouth [place] 1,250 mcg 00 weekly. Medical (50,000 Branch unit) capsule ergocalcife 2020-0 Yes [id number] Take 1 Univers rol, 9-15 capsule by ity of vitamin d2, 00:00: mouth [place] 1,250 mcg 00 weekly. Medical (50,000 Branch unit) capsule ergocalcife 2020-0 Yes [id number] Take 1 Univers rol, 9-15 capsule by ity of vitamin d2, 00:00: mouth [place] 1,250 mcg 00 weekly. Medical (50,000 Branch unit) capsule ergocalcife 2020-0 Yes [id number] Take 1 Univers rol, 9-15 capsule by ity of vitamin d2, 00:00: mouth [place] 1,250 mcg 00 weekly. Medical (50,000 Branch unit) capsule ergocalcife 2020-0 Yes [id number] Take 1 Univers rol, 9-15 capsule by ity of vitamin d2, 00:00: mouth [place] 1,250 mcg 00 weekly. Medical (50,000 Branch unit) capsule zinc 2020-0 2020- No [id number] 220mg Take 1 Univ ers sulfate 220 9-10 10-11 capsule by i ty of (50) mg 00:00: 04:59 mouth [place] capsule 00 :00 daily for Medical 30 days. Branch zinc 2020-0 2020- No [id number] 220mg Take 1 Univ ers sulfate 220 9-10 10-11 capsule by i ty of (50) mg 00:00: 04:59 mouth [place] capsule 00 :00 daily for Medical 30 days. Branch zinc 2020-0 2020- No [id number] 220mg Take 1 Univ ers sulfate 220 9-10 10-11 capsule by i ty of (50) mg 00:00: 04:59 mouth [place] capsule 00 :00 daily for Medical 30 days. Branch zinc 2020-0 2020- No [id number] 220mg Take 1 Univ ers sulfate 220 9-10 10-11 capsule by i ty of (50) mg 00:00: 04:59 mouth [place] capsule 00 :00 daily for Medical 30 days. Eleva zinc 2019- No [id number] 220mg Take 1 Univ ers sulfate 220 9-10 10-11 capsule by i ty of (50) mg 00:00: 04:59 mouth [place] capsule 00 :00 daily for Medical 30 days. Eleva zinc No [id number] 220mg Take 1 Univ ers sulfate 220 9-10 10-11 capsule by i ty of (50) mg 00:00: 04:59 mouth [place] capsule 00 :00 daily for Medical 30 days. Eleva zinc No [id number] 220mg Take 1 Univ ers sulfate 220 9-10 10-11 capsule by i ty of (50) mg 00:00: 04:59 mouth [place] capsule 00 :00 daily for Medical 30 days. Eleva zinc No [id number] 220mg Take 1 Univ ers sulfate 220 9-10 10-11 capsule by i ty of (50) mg 00:00: 04:59 mouth [place] capsule 00 :00 daily for Medical 30 days. Eleva zinc 2019- No [id number] 220mg Take 1 Univ ers sulfate 220 9-10 10-11 capsule by i ty of (50) mg 00:00: 04:59 mouth [place] capsule 00 :00 daily for Medical 30 days. Eleva zinc 2019- No [id number] 220mg Take 1 Univ ers sulfate 220 9-10 10-11 capsule by i ty of (50) mg 00:00: 04:59 mouth [place] capsule 00 :00 daily for Medical 30 days. Eleva zinc 2019- No [id number] 220mg Take 1 Univ ers sulfate 220 9-10 10-11 capsule by i ty of (50) mg 00:00: 04:59 mouth [place] capsule 00 :00 daily for Medical 30 days. Eleva dexAMETHaso 2019- No [id number] 6mg Take 1 Univers ne 6 mg 9-10 09-18 tablet by ity of tablet 00:00: 04:59 mouth [place] 00 :00 daily for Medical 7 days. Eleva dexAMETHaso 2019- No [id number] 6mg Take 1 Univers ne 6 mg 9-10 09-18 tablet by ity of tablet 00:00: 04:59 mouth [place] 00 :00 daily for Medical 7 days. Branch dexAMETHaso 2020-0 2020- No [id number] 6mg Take 1 Univers ne 6 mg 9-10 09-18 tablet by ity of tablet 00:00: 04:59 mouth [place] 00 :00 daily for Medical 7 days. Branch dexAMETHaso 2019-0 2020- No [id number] 6mg Take 1 Univers ne 6 mg [...] formoteroL 9-09 Puffs 2 ity of (SYMBICORT) 14:43: (two) [place] 160-4.5 57 times Medical mcg/actuati daily. Branch on inhaler budesonide- 2020-0 Yes 2{puff} Inhale 2 Univers formoteroL 9-09 Puffs 2 ity of (SYMBICORT) 14:43: (two) [place] 160-4.5 57 times Medical mcg/actuati daily. Branch on inhaler ALPRAZolam 2019-0 Yes [id number] .5mg Take 1 U nivers (XANAX) 0.5 9-09 tablet by ity of mg tablet 00:00: mouth 3 [place] 00 (three) Medical times Branch daily as needed (anxiety). ALPRAZolam 2020-0 Yes [id number] .5mg Take 1 U nivers (XANAX) 0.5 9-09 tablet by ity of mg tablet 00:00: mouth 3 [place] 00 (three) Medical times Branch daily as needed (anxiety). ALPRAZolam 2020-0 Yes [id number] .5mg Take 1 U nivers (XANAX) 0.5 9-09 tablet by ity of mg tablet 00:00: mouth 3 [place] 00 (three) Medical times Branch daily as needed (anxiety). ALPRAZolam 2020-0 Yes [id number] .5mg Take 1 U nivers (XANAX) 0.5 9-09 tablet by ity of mg tablet 00:00: mouth 3 [place] 00 (three) Medical times Branch daily as needed (anxiety). ALPRAZolam 2020-0 Yes [id number] .5mg Take 1 U nivers (XANAX) 0.5 9-09 tablet by ity of mg tablet 00:00: mouth 3 [place] 00 (three) Medical times Branch daily as needed (anxiety). ALPRAZolam 2020-0 Yes [id number] .5mg Take 1 U nivers (XANAX) 0.5 9-09 tablet by ity of mg tablet 00:00: mouth 3 [place] 00 (three) Medical times Branch daily as needed (anxiety). ALPRAZolam 2020-0 Yes [id number] .5mg Take 1 U nivers (XANAX) 0.5 9-09 tablet by ity of mg tablet 00:00: mouth 3 [place] 00 (three) Medical times Branch daily as needed (anxiety). ALPRAZolam 2020-0 Yes [id number] .5mg Take 1 U nivers (XANAX) 0.5 9-09 tablet by ity of mg tablet 00:00: mouth 3 [place] 00 (three) Medical times Branch daily as needed (anxiety). ALPRAZolam 2020-0 Yes [id number] .5mg Take 1 U nivers (XANAX) 0.5 9-09 tablet by ity of mg tablet 00:00: mouth 3 [place] 00 (three) Medical times Branch daily as needed (anxiety). ALPRAZolam 2020-0 Yes [id number] .5mg Take 1 U nivers (XANAX) 0.5 9-09 tablet by ity of mg tablet 00:00: mouth 3 (three) Medical times Branch daily as needed (anxiety). ALPRAZolam 2020-0 Yes [id number] .5mg Take 1 U nivers (XANAX) 0.5 9-09 tablet by ity of mg tablet 00:00: mouth 3 (three) Medical times Branch daily as needed (anxiety). ALPRAZolam 2020-0 Yes [id number] .5mg Take 1 U nivers (XANAX) 0.5 9-09 tablet by ity of mg tablet 00:00: mouth 3 (three) Medical times Branch daily as needed (anxiety). ALPRAZolam 2020-0 Yes [id number] .5mg Take 1 U nivers (XANAX) 0.5 9-09 tablet by ity of mg tablet 00:00: mouth 3 (three) Medical times Branch daily as needed (anxiety). ALPRAZolam 2020-0 Yes [id number] .5mg Take 1 U nivers (XANAX) 0.5 9- tablet by ity of mg tablet 00:00: mouth 3 (three) Medical times Branch daily as needed (anxiety). ascorbic 2020-0 2020- No [id number] 500mg Take 1 Univers acid, 07-23 10-10 tablet by ity of vitamin C, 00:00: 04:59 mouth 2 [place] 500 mg 00 :00 (two) Medical tablet times Branch daily for 30 days. ascorbic 2020-0 2020- No [id number] 500mg Take 1 Univers acid, 07-23 10-10 tablet by ity of vitamin C, 00:00: 04:59 mouth 2 [place] 500 mg 00 :00 (two) Medical tablet times Branch daily for 30 days. ascorbic 2020-0 2020- No [id number] 500mg Take 1 Univers acid, 07-23 10-10 tablet by ity of vitamin C, 00:00: 04:59 mouth 2 [place] 500 mg 00 :00 (two) Medical tablet times Branch daily for 30 days. ascorbic 2020-0 2020- No [id number] 500mg Take 1 Univers acid, 9-09 10-10 tablet by ity of vitamin C, 00:00: 04:59 mouth 2 [place] 500 mg 00 :00 (two) Medical tablet times Branch daily for 30 days. ascorbic 2020-0 2020- No [id number] 500mg Take 1 Univers acid, 07-23-10 tablet by ity of vitamin C, 00:00: 04:59 mouth 2 [place] 500 mg 00 :00 (two) Medical tablet times Branch daily for 30 days. ascorbic 2019-0 2020- No [id number] 500mg Take 1 Univers acid, 07-2310 tablet by ity of vitamin C, 00:00: 04:59 mouth 2 [place] 500 mg 00 :00 (two) Medical tablet times Branch daily for 30 days. ascorbic 2019-0 2020- No [id number] 500mg Take 1 Univers acid, 07-2310 tablet by ity of vitamin C, 00:00: 04:59 mouth 2 [place] 500 mg 00 :00 (two) Medical tablet times Branch daily for 30 days. ascorbic 2019-0 2020- No [id number] 500mg Take 1 Univers acid, 07-2310 tablet by ity of vitamin C, 00:00: 04:59 mouth 2 [place] 500 mg 00 :00 (two) Medical tablet times Branch daily for 30 days. ascorbic 2019-0 2020- No [id number] 500mg Take 1 Univers acid, 07-2310 tablet by ity of vitamin C, 00:00: 04:59 mouth 2 [place] 500 mg 00 :00 (two) Medical tablet times Branch daily for 30 days. ascorbic 2019-0 2020- No [id number] 500mg Take 1 Univers acid, 07-2310 tablet by ity of vitamin C, 00:00: 04:59 mouth 2 [place] 500 mg 00 :00 (two) Medical tablet times Branch daily for 30 days. ascorbic 2019-0 2020- No [id number] 500mg Take 1 Univers acid, 07-23-10 tablet by ity of vitamin C, 00:00: 04:59 mouth 2 [place] 500 mg 00 :00 (two) Medical tablet times Branch daily for 30 days. enoxaparin 2019-0 Yes 40mg 40 mg, Unive rs (LOVENOX) 07-22 Subcutaneo ity of injection 20:00: [place], [place]ILY, [place] 40 mg 00 First dose Medical on Eleva 07/22/20 at 1500, Until Discontinu ed, Routine sulfur 2020-0 2020- No 10mL 10 mL, Univers hexafluorid 07-22 Intravenou i ty of e microsphr 17:45: 14:15 s, ONCE, 1 [place] (LUMASON) 00 :00 dose, Tue Medic al injection 07/22/20 at Branc h 10 mL 1245, Routine
manufacturing team member approving Restricted medication : TURNER PIMENTEL zinc 2020-0 Yes 220mg 220 mg, Univers sulfate 07-22 Oral, ity of (ORAZINC) 14:00: DAILY, [place] capsule 220 00 First dose Me dical mg on [facility] 07/22/20 at 0900, Until Discontinu ed, Routine ergocalcife 2020-0 Yes [id number] 50,000 Un shahzad rol 07-22 Units, ity of (vitamin 14:00: Oral, [place] d2) 00 QWEEKLY, Medical (CALCIFEROL First dose Br anch ) capsule on Tue 50,000 07/22/20 at Units 0900, Until Discontinu ed, Routine aspirin 2020-0 Yes 81mg 81 mg, Univers chewable 07-22 Oral, ity of tablet 81 14:00: DAILY, [place] mg 00 First dose Medical on [facility] 07/22/20 at 0900, Until Discontinu ed, Routine benzonatate 2020-0 Yes 100mg 100 mg, Un shahzad (TESSALON 07-22 Oral, ity of PERLES) 01:38: TIDPRN, [place] capsule 100 56 Starting Medi carlos mg Tue07/21/20 Branch at 2037, Until Discontinu ed, Routine, Cough, 1st dose [...] No 2{puff} 2 Puff, Univers formoteroL 07-22 Inhalation it y of (SYMBICORT) 01:00: 01:25 , BID, [place] 160-4.5 00 :13 First dose Medica l mcg/actuati on Tue on inhaler 07/21/20 at 2 Puff 2000, Until Discontinu ed, Routine ondansetron 2020-0 Yes 4mg 4 mg, Slow Univers (ZOFRAN 07-21 IV Push, ity of (PF)) 21:16: Q6HPRN, [place] injection 4 56 Starting Medi carlos mg Tue07/21/20 Branch at 1616, Until Discontinu ed, Routine, Nausea and Vomiting (N/V) HYDROcodone 2020-0 Yes 1{tbl} 1 tablet, [facility] -acetaminop 07-21 Oral, ity of hen (NORCO) 21:16: Q6HPRN, [place] 10-325 mg 54 Starting Medica l tablet 1 Tue07/21/20 Branc h tablet at 1616, Until Discontinu ed, Routine, Pain (scale 7-10) traMADoL 2019-0 2020- No 50mg 50 mg, Univer s (ULTRAM) 07-21 09-09 Oral, ity of tablet 50 21:16: 21:15 Q8HPRN, [place] mg 50 :50 Starting Medical Tue07/21/20 Branch at 1616, Until Tue07/23/20 at 1615, Routine, Pain (scale 4-6) acetaminoph 2020-0 Yes 650mg 650 mg, Un shahzad en 07-21 Oral, ity of (TYLENOL) 21:16: Q6HPRN, [place] tablet 650 46 Starting Medic al mg Tue07/21/20 Branch at 1616, Until Discontinu ed, Routine, Pain (scale 1-3) ketorolac 2019- No 30mg 30 mg, Unive rs (TORADOL) 07-21 Slow IV ity of injection 20:00: 19:40 Push, [place] 30 mg 00 :00 ONCE, 1 Medical dose, [facility] 07/21/20 at 1500, Routine
manufacturing team member approving Restricted medication : MAGUI HERNÁNDEZ aspirin 2019- No 325mg 325 mg, Unive rs tablet 325 07-21 Oral, ity of mg 20:00: 19:42 ONCE, 1 [place] 00 :00 dose, [facility] Medical 07/21/20 at Branch 1500, STAT nitroglycer Yes .4mg 0.4 mg, Uni vers in 07-21 Sublingual ity of (NITROSTAT) 19:29: , Q5MIN [place] as sublingual 01 PRN, 3 Medical tablet 0.4 doses, Branch mg Starting [facility] 07/21/20 at 1429, Until Discontinu ed, MARISOL, Chest pain NaCl 0.9% 2019- No 1000mL at 999 Uni vers (NS) bolus 07-21 mL/hr, ity of infusion 19:00: 19:40 1,000 mL, [place] 1,000 mL 00 :00 IV Medical Infusion, Eleva ONCE, 1 dose, [facility] 07/21/20 at 1400, MARISOL budesonide- 0 Yes 1{puff} Inhale [address] [facility] [address] formoterol 3-13 puff by [facility] (SYMBICORT) 14:06: mouth via M edical 160-4.5 41 inhaler as Center mcg/actuati needed. on inhaler budesonide- Yes 1{puff} Inhale [address] formoterol 3-13 puff by [facility] (SYMBICORT) 14:06: mouth via M edical 160-4.5 41 inhaler as Center mcg/actuati needed. on inhaler pantoprazol 2018- Yes 40mg Q.5D Take [address] [facility] [facility] 3-13 tablet (40 [facility] (PROTONIX) 00:00: mg total) Me dical 40 MG 00 by mouth 2 Center tablet (two) times daily. pantoprazol Yes 40mg Q.5D Take [address] [facility] 3-13 tablet (40 [facility] (PROTONIX) 00:00: mg total) Me dical 40 MG 00 by mouth 2 Center tablet (two) times daily. perflutren 2016- 2020- No 1.65mg Univ ers lipid [id number] ity of microsphere 16:08: 21:51 [place] 57 :30 Medical (DEFINITY) Branch injection 1.65 mg nitroglycer 2016-[address] 1 Uni vers in 4-26 tablet ity of (NITROSTAT) 00:00: under the [place] 0.4 mg 00 tongue Medical sublingual every 5 Branch tablet (five) minutes as needed for Chest pain. aspirin 81 2015-0 Yes 81mg Take 1 Unive rs mg EC 4-26 tablet by ity of tablet 00:00: mouth [place] 00 daily. Medical Branch nitroglycer 2016-[address] 1 Uni vers in 4-26 tablet ity of (NITROSTAT) 00:00: under the [place] 0.4 mg 00 tongue Medical sublingual every 5 Branch tablet (five) minutes as needed for Chest pain. aspirin 81 2016-0 Yes 81mg Take 1 Unive rs mg EC 4-26 tablet by ity of tablet 00:00: mouth [place] 00 daily. Medical Branch nitroglycer 2016-[address] 1 Uni vers in 4-26 tablet ity of (NITROSTAT) 00:00: under the [place] 0.4 mg 00 tongue Medical sublingual every 5 Branch tablet (five) minutes as needed for Chest pain. aspirin 81 2016-0 Yes 81mg Take 1 Unive rs mg EC 4-26 tablet by ity of tablet 00:00: mouth [place] 00 daily. Medical Branch nitroglycer 2016-[address] 1 Uni vers in 4-26 tablet ity of (NITROSTAT) 00:00: under the [place] 0.4 mg 00 tongue Medical sublingual every 5 Branch tablet (five) minutes as needed for Chest pain. aspirin 81 2016-0 Yes 81mg Take 1 Unive rs mg EC 4-26 tablet by ity of tablet 00:00: mouth [place] 00 daily. Medical Branch nitroglycer 2016-[address] 1 Uni vers in 4-26 tablet ity of (NITROSTAT) 00:00: under the [place] 0.4 mg 00 tongue Medical sublingual every 5 Branch tablet (five) minutes as needed for Chest pain. aspirin 81 2016-0 Yes 81mg Take 1 Unive rs mg EC 4-26 tablet by ity of tablet 00:00: mouth [place] 00 daily. Medical Branch nitroglycer 2016-[address] 1 Uni vers in 4-26 tablet ity of (NITROSTAT) 00:00: under the [place] 0.4 mg 00 tongue Medical sublingual every 5 Branch tablet (five) minutes as needed for Chest pain. aspirin 81 2016-0 Yes 81mg Take 1 Unive rs mg EC 4-26 tablet by ity of tablet 00:00: mouth [place] 00 daily. Medical Branch nitroglycer 2016-[address] 1 Uni vers in 4-26 tablet ity of (NITROSTAT) 00:00: under the [place] 0.4 mg 00 tongue Medical sublingual every 5 Branch tablet (five) minutes as needed for Chest pain. aspirin 81 2016-0 Yes 81mg Take 1 Unive rs mg EC 4-26 tablet by ity of tablet 00:00: mouth [place] 00 daily. Medical Branch nitroglycer 2016-[address] 1 Uni vers in 4-26 tablet ity of (NITROSTAT) 00:00: under the [place] 0.4 mg 00 tongue Medical sublingual every 5 Branch tablet (five) minutes as needed for Chest pain. aspirin 81 2016-0 Yes 81mg Take 1 Unive rs mg EC 4-26 tablet by ity of tablet 00:00: mouth [place] 00 daily. Medical Branch nitroglycer 2016-[address] 1 Uni vers in 4-26 tablet ity of (NITROSTAT) 00:00: under the [place] 0.4 mg 00 tongue Medical sublingual every 5 Branch tablet (five) minutes as needed for Chest pain. aspirin 81 2016-0 Yes 81mg Take 1 Unive rs mg EC 4-26 tablet by ity of tablet 00:00: mouth [place] 00 daily. Medical Branch nitroglycer 2016-[address] 1 Uni vers in 4-26 tablet ity of (NITROSTAT) 00:00: under the [place] 0.4 mg 00 tongue Medical sublingual every 5 Branch tablet (five) minutes as needed for Chest pain. aspirin 81 2016-0 Yes 81mg Take 1 Unive rs mg EC 4-26 tablet by ity of tablet 00:00: mouth [place] 00 daily. Medical Branch nitroglycer 2016-[address] 1 Uni vers in 4-26 tablet ity of (NITROSTAT) 00:00: under the [place] 0.4 mg 00 tongue Medical sublingual every 5 Branch tablet (five) minutes as needed for Chest pain. aspirin 81 2016-0 Yes 81mg Take 1 Unive rs mg EC 4-26 tablet by ity of tablet 00:00: mouth [place] 00 daily. Medical Branch nitroglycer 2016-[address] 1 Uni vers in 4-26 tablet ity of (NITROSTAT) 00:00: under the [place] 0.4 mg 00 tongue Medical sublingual every 5 Branch tablet (five) minutes as needed for Chest pain. aspirin 81 2016-0 Yes 81mg Take 1 Unive rs mg EC 4-26 tablet by ity of tablet 00:00: mouth [place] 00 daily. Medical Branch nitroglycer 2016-[address] 1 Uni vers in 4-26 tablet ity of (NITROSTAT) 00:00: under the [place] 0.4 mg 00 tongue Medical sublingual every 5 Branch tablet (five) minutes as needed for Chest pain. aspirin 81 2015-0 Yes 81mg Take 1 Unive rs mg EC 4-26 tablet by ity of tablet 00:00: mouth [place] 00 daily. Medical Branch nitroglycer 2016-[address] 1 Uni vers in 4-26 tablet ity of (NITROSTAT) 00:00: under the [place] 0.4 mg 00 tongue Medical sublingual every 5 Branch tablet (five) minutes as needed for Chest [...] daily as Branch needed for Cough. benzonatate Yes 100mg Take 1 Cap Univers (TESSALON 1-18 by mouth 3 ity of PERLES) 100 00:00: (three) [place] as mg capsule 00 times Medical daily as Branch needed for Cough. sulindac 2020- No 200mg Take 1 Tab U nivers (CLINORIL) 12-01 by mouth 2 it y of 200 mg 00:00: 00:00 (two) [place] tablet 00 :00 times Medical daily. Branch azelastine 2020- No 1{spray Use 1 Un shahzad (ASTELIN) 12-01 } [place] in ity o f 137 mcg 00:00: 00:00 each [place] (0.1 %) 00 :00 nostril 2 Medical nasal spray (two) Branch times daily. Use in each nostril as directed Immunizations Ordered Filled Immunization Date Status Comments [facility] Immunization Name Name SARS-COV-2 COVID-19 2021-05-13 Completed Unive rsity of PFIZER VACCINE 00:00:00 [facility] SARS-COV-2 COVID-19 2021-05-13 Completed Unive rsity of PFIZER VACCINE 00:00:00 [facility] SARS-COV-2 COVID-19 2021-04-22 Completed Unive rsity of PFIZER VACCINE 00:00:00 [facility] SARS-COV-2 COVID-19 2021-04-22 Completed Unive rsity of PFIZER VACCINE 00:00:00 [facility] Rabies 2019-01-[address] [facility] 00:00:00 [facility] Rabies 2019-01-[address] [facility] 00:00:00 [facility] Influenza Virus 2019-01-22 Completed Universit y [facility] Td 2019-01-22 Completed [facility] Influenza Virus 2019-01-22 Completed Universit y of Vaccine 00:00:00 [facility] Td 2019-01-22 Completed [facility] 00:[facility] Influenza Virus 2019-01-22 Completed Universit y of Vaccine 00:00:00 [facility] 2019-01-22 Completed University [facility] 00:[facility]:00 [facility] Influenza Virus 2019-01-22 Completed Universit y of Vaccine 00:00:00 [facility] Td 2019-01-22 Completed [facility] 00:[facility] Influenza Virus 2019-01-22 Completed Universit y of Vaccine 00:00:00 [facility] Td 2019-01-22 Completed [facility] 00:[facility] Influenza Virus 2019-01-22 Completed Universit y of Vaccine 00:00:00 [facility] Td 2019-01-22 Completed [facility] 00:[facility] Influenza Virus 2019-01-22 Completed Universit y of Vaccine 00:00:00 [facility] Td 2019-01-22 Completed [facility] 00:[facility] Influenza Virus 2019-01-22 Completed Universit y of Vaccine 00:00:00 [facility] Td 2019-01-22 Completed [facility] 00:[facility] Influenza Virus 2019-01-22 Completed Universit y of Vaccine 00:00:00 [facility] Td 2019-01-22 Completed [facility] 00:[facility] Influenza Virus 2019-01-22 Completed Universit y of Vaccine 00:00:00 [facility] Td 2019-01-22 Completed [facility] 00:[facility] Influenza Virus 2019-01-22 Completed Universit y of Vaccine 00:00:00 [facility] Td 2019-01-22 Completed [facility] 00:[facility]:00 [facility] Influenza Virus 2019-01-22 Completed Universit y of Vaccine 00:00:00 [facility] Td 2019-01-22 Completed [facility] 00:[facility] Influenza Virus 2019-01-22 Completed Universit y of Vaccine 00:00:00 [facility] Td 2019-01-22 Completed [facility] 00:[facility] Influenza Virus 2019-01-22 Completed Universit y of Vaccine 00:00:00 [facility] Td 2019-01-22 Completed [facility] 00:[facility]:00 [facility] Td 7+ years, 2019-01-[address] [facility] (TDVAX) 2 Lf 00:00:00 Medical [facility] er tetanus toxoid preservative free Influenza Four-QIV 2019-01-[address] [facility] Non-PF 5+ YR 00:00:00 Medical [facility] er Td 7+ years, 2019-01-[address] [facility] (TDVAX) 2 Lf 00:00:00 Medical Cent [facility] tetanus toxoid preservative free Influenza Four-QIV 2019-01-[address] [facility] Non-PF 5+ YR 00:00:00 [facility] Rabies 2019-01-[address] [facility] 00:00:00 [facility] Rabies 2019-01-[address] [facility] 00:00:00 [facility] Vital Signs Vital Name Observation Time Observation Value Comments Source Systolic blood 2022-08-10 11:33:00 122 mm[Hg] Univer sity of [facility] Diastolic blood 2022-08-10 11:33:00 86 mm[Hg] Unive rsity of [facility] Heart rate 2022-08-10 11:33:00 81 /min Universi ty [facility] Body temperature 2022-08-10 11:33:00 36.39 Indira [facility] Respiratory rate 2022-08-10 11:33:00 16 /min [facility] Body height 2022-08-10 11:33:00 162.6 cm [facility]i ty [facility] Body weight 2022-08-10 11:33:00 100.[address] [facility] BMI 2022-08-10 11:33:00 37.93 kg/m2 [facility] Oxygen saturation in 2022-08-10 11:33:00 96 /min [facility] Arterial blood by [facility] Pulse oximetry Branch Systolic blood 2022-05-16 16:57:24 121 mm[Hg] Univer sity of [facility] Diastolic blood 2022-05-16 16:57:24 89 mm[Hg] Unive rsity of pressure [facility] Heart rate 2022-05-16 16:57:24 81 /min Universi ty [facility] Body temperature 2022-05-16 16:57:24 36.22 Indira [facility] Respiratory rate 2022-05-16 16:57:24 18 /min [facility] ersity of [facility] Body weight 2022-05-16 16:09:00 99.[address] [facility] BMI 2022-05-16 16:09:00 38.97 kg/m2 [facility]i [facility] Oxygen saturation in 2022-05-16 16:09:00 99 /min University of Arterial blood by [facility] Pulse oximetry Branch Respiratory rate 2020-07-23 17:22:00 25 /min Univ ersity of [facility] Oxygen saturation in 2020-07-23 17:22:00 91 /min University of Arterial blood by [facility] Pulse oximetry Branch Systolic blood 2020-07-23 17:22:00 118 mm[Hg] Univer sity of [facility] Diastolic blood 2020-07-23 17:22:00 75 mm[Hg] Unive rsity of [facility] Heart rate 2020-07-23 17:22:00 100 /min [facility]i ty [facility] Body temperature 2020-07-23 17:22:00 36.78 Indira Univ ersity of [facility] Body weight 2020-07-22 09:38:00 99.809 kg [facility]i [facility] BMI 2020-07-22 09:38:00 38.98 kg/m2 [facility] [place] [facility] Respiratory rate 2020-07-23 17:22:00 25 /min Univ ersity of [facility] Branch Oxygen saturation in 2020-07-23 17:22:00 91 /min University of Arterial blood by [facility] Pulse oximetry Branch Systolic blood 2020-07-23 17:22:00 118 mm[Hg] Univer sity of [facility] Diastolic blood 2020-07-23 17:22:00 75 mm[Hg] Unive rsity of [facility] Heart rate 2020-07-23 17:22:00 100 /min [facility]i [facility] Body temperature 2020-07-23 17:22:00 36.78 Indira Univ ersity of [place] [facility] Body weight 2020-07-22 09:38:00 99.809 kg [facility]i ty [facility] BMI 2020-07-22 09:38:00 38.98 kg/m2 [facility] Procedures Procedure Date / Time Performing Clinician Source Performed XR KNEE 3 VW RIGHT 2022-08-10 12:24:13 Brodie Gabriel [facility] CONSENT/REFUSAL FOR 2022-08-10 11:26:54 Doctor Unassigned, No Un [facility] DIAGNOSIS AND TREATMENT [facility] RAPID INFLUENZA A/B 2022-05-16 16:15:00 Sanjiv Michelle [facility] COVID-19 (ID NOW RAPID 2022-05-16 16:15:00 Sanjiv Michelle [facility] TESTING) Medical Branch NOTICE OF PRIVACY 2022-05-16 15:58:41 Doctor Unassigned, No [facility] PRACTICES Name Medical Branch CONSENT/REFUSAL FOR 2022-05-16 15:58:10 Doctor Unassigned, No [facility] DIAGNOSIS AND TREATMENT [facility] AUTHORIZATION FOR 2021-03-23 05:01:00 Doctor Unassigned, No [facility] RELEASE OF [facility] PATIENT QUESTIONNAIRE 2020-08-15 05:01:00 Doctor Unassigned, No [facility] PATIENT QUESTIONNAIRE 2020-08-07 05:01:00 Doctor Unassigned, No [facility] TROPONIN I 2020-07-22 14:39:00 Areli Pisano [facility] ECHO ROUTINE W/DOPPLER 2020-07-22 13:40:32 Areli Pisano [facility] COLOR [facility] TROPONIN I 2020-07-22 07:08:00 Areli Pisano [facility] BASIC METABOLIC PANEL 2020-07-22 07:08:00 Areli Pisano Un [facility] (NA, K, CL, CO2, Medical Branch GLUCOSE, BUN, CREATININE, CA) CBC WITH DIFF 2020-07-22 07:08:00 Areli Pisano [facility] VITAMIN D, 25-OH 2020-07-22 07:08:00 Areli Pisano [facility] PNEUMOCOCCAL ANTIGEN 2020-07-22 04:36:00 Areli Pisano Uni versity [facility] MAGNESIUM 2020-07-21 22:10:00 Areli Pisano [facility] TROPONIN I 2020-07-21 22:10:00 Areli Pisano [facility] PROCALCITONIN 2020-07-21 22:10:00 Areli Pisano [facility] BILATERAL VENOUS DUPLEX 2020-07-21 20:03:03 Magui Hernández [facility] LOWER EXTREMITY BY Medical Branc h VASCULAR LAB XR CHEST 1 VW COVID 2020-07-21 19:37:58 Magui Hernández [facility] BLOOD CULTURE SCREEN 2020-07-21 19:10:00 Magui Hernández [facility] COVID-19 (ID NOW RAPID 2020-07-21 19:09:00 Magui Hernández [facility] TESTING) [facility] LACTATE DEHYDROGENASE 2020-07-21 19:07:00 Magui Hernández [facility] LIPASE 2020-07-21 19:07:00 Magui Hernández [facility] FERRITIN SERUM 2020-07-21 19:07:00 Magui Hernández [facility] TROPONIN I 2020-07-21 19:07:00 Magui Hernández [facility] THYROID STIMULATING 2020-07-21 19:07:00 Areli Pisano [facility] HORMONE [facility] HEPATIC FUNCTION PANEL 2020-07-21 19:07:00 Magui Hernández [facility] ([id number]) (ALB,T.PRO,BILI [facility] T,BU/BC,ALT,AST,ALK PHOS) BASIC METABOLIC PANEL 2020-07-21 19:07:00 Magui Hernández [facility] (NA, K, CL, CO2, Medical Branch GLUCOSE, BUN, CREATININE, CA) LIPID PANEL 2020-07-21 19:07:00 Areli Pisano [facility] ([id number])(TOTAL [facility] CHOLESTEROL, TRIGLYCERIDES, HDL) CBC WITH DIFF 2020-07-21 19:07:00 Magui Hernández [facility] GLYCOSYLATED HEMOGLOBIN 2020-07-21 19:07:00 Areli Pisano [facility] (A1C) [facility] PROTHROMBIN TIME / INR 2020-07-21 19:07:00 Magui Hernández [facility] D-DIMER 2020-07-21 19:07:00 Magui Hernández [facility] ACTIVATED PARTIAL 2020-07-21 19:07:00 Magui Hernández [facility] THRMPLAS CRYSTAL Medical Branch FIBRINOGEN 2020-07-21 19:07:00 Magui Hernández [facility] N-TERMINAL PRO-BNP 2020-07-21 19:07:00 Magui Hernández [facility] BLOOD CULTURE SCREEN 2020-07-21 19:06:00 [facility] EKG-12 LEAD 2020-07-21 18:48:26 Magui Hernández [facility] NOTICE OF PRIVACY 2020-07-21 18:24:15 Doctor Unassigned, No Univ [facility] PRACTICES Name [facility] CONSENT/REFUSAL FOR 2020-07-21 18:23:05 Doctor Un[facility]igned, No [facility] Name [facility] Plan of Care Planned Activity Planned Date Details Comments Source Future Scheduled 2029-01-22 DTAP/TDAP/TD [facility]ACCINES [facility]00 (2 - Td or Tdap) [facility] [address] [code = DTAP/TDAP/TD VACCINES (2 - Td or Tdap)] Future Scheduled 2022-01-[address] [facility] [facility] Test 00:[facility]00 (procedure) [code = [facility] [id number]] Future Scheduled 2021-11-[address] [facility] Test 00:00:00 (12+) [code = [facility] DEPRESSION SCREENING (12+)] Future Scheduled 2021-07-[address] [facility] Test 00:00:00 (#1) [code = Medical Center INFLUENZA VACCINE (#1)] Future Scheduled 2017 SHINGLES VACCINES ([address] [facility] Test 00:00:00 of 2) [code = Medical Center SHINGLES VACCINES (1 of 2)] Future Scheduled 1985 HEPATITIS C [facility]CRE[facility] Test 00:00[facility]00 [code = HEPATITIS C Medical Center SCREENING] Future Scheduled 1979 COVID-19 VACCINE (1) [facility] Test 00:00:00 [code = COVID-[address] VACCINE (1)] Future Scheduled [address] [facility] Test 00:00:00 malignant neoplasm of Medica l Center colon (procedure) [code = 987904024] Encounters Start End Encounter Admission Attending Care Care Encounter Source Date/Time Date/Time Type Type Clinicians Facility Department ID 2022-08-10 2022-08-10 Emergency X NAYANA [facility] ERT [id number] Univers 06:40:00 09:01:[address] [facility] 2022-08-10 2022-08-10 Emergency Brodie Gabriel [facility] 1.2.840 .114 [id number] Univers 06:40:00 09:01:00 Kelin Kraus [place] BHATIA [id number] ity of [place] [id number] [facility] [id number] [facility] 084 Eleva 2022-05-16 2022-05-16 Emergency X VIVIANA, [facility] ERT [id number] Univers 11:06:00 12:08:00 SANJIV hewitt [facility] 2022-05-16 2022-05-16 [facility] [id number] Univers 11:06:00 12:08:00 Sanjiv BHATIA [id number] ity of [place] [id number] [facility] [id number] [address] 2021-05-13 2021-05-13 Outpatient Sheldon FLORES [facility] [id number] Univers 12:20:00 11:54:38 [facility] 2021-04-22 2021-04-22 Outpatient Sheldon FLORES [facility] [id number] Univers 12:30:00 12:21:23 [facility] 2021-04-22 2021-04-22 Outpatient Sheldon FLORES [facility] [id number] Univers 12:20:00 12:20:00 [facility] 2021-03-23 2021-03-23 Orders Doctor BAIG 1..840.114 [id number] Univers 00:00:00 00:00:00 Only Unassigned, MARIO [id number] ity of [place] [facility] [id number] [facility] [id number] [facility] 009 Branch 2020-08-15 2020-08-15 Laboratory Lab, Adc Fam Pob I [facility] 1.2. 840.114 [id number] [facility] 09:44:41 10:04:41 Only Anene, Marlene Health [id number] ity of [place] [id number] Jerry as Professio [id number] [address] Office [facility] 2020-08-15 2020-08-15 Laboratory Lab, [facility] 1.2.840.114 [id number] 09:44:41 10:04:41 Only Fam Pob I Health [id number] [place] 4.2.7.2.686 Professio [id number] [place] [address] Office Building [facility] 2020-08-15 2020-08-15 Outpatient R [facility] [id number] Univers 10:00:00 10:00:00 ity [facility] 2020-08-15 2020-08-15 Orders Doctor BAIG 1.2.840.114 [id number] [facility] 00:00:00 00:00:00 Only Unassigned, MARIO [id number] ity of [place] [facility] 4.2.7.2.686 Jerry as [phone] [address] 2020-08-15 2020-08-15 Orders Doctor BAIG 1.2.840.114 [id number] 00:00:00 00:00:00 Only Unassigned, MARIO [id number] [place] [facility] 4.2.7.2.686 [id number] [facility] 2020-08-07 2020-08-07 Laboratory Lab, [facility] Fam Pob I [facility] 1.2. 840.114 [id number] [facility] 18:40:54 19:00:54 Only Anene, Marlene Health [id number] ity of [place] 4.2.7.2.686 Jerry as Professio [id number] [address] Office [facility] 2020-08-07 2020-08-07 Laboratory Lab, [facility] 1.2.840.114 [id number] 18:40:54 19:00:54 Only Fam Pob I Health [id number] [place] 4.2.7.2.686 Professio [phone] [place] [address] Office [facility] 2020-08-07 2020-08-07 [facility]patient [facility] [id number] Univers 19:00:00 19:00:00 MARLENE ity of [facility] 2020-08-07 2020-08-07 Outpatient R [facility] [id number] Univers 11:20:00 11:20:00 ity of [facility] 2020-08-07 2020-08-07 Orders Doctor JOVANNI 1.2.840.114 [id number] Univers 00:00:00 00:00:00 Only Unassigned, MARIO [id number] ity of [place] [facility] 4.2.7.2.686 Jerry as [phone] [address] 2020-08-07 2020-08-07 Orders Doctor JOVANNI 1.2.840.114 [id number] 00:00:00 00:00:00 Only Unassigned, MARIO [id number] [place] [facility] 4.2.7.2.686 [id number] 2020-08-06 2020-08-06 Patient Bhumika Hernandez Amy 1.2.840.114 [id number] Univers 00:00:00 00:00:00 Outreach E [place] [id number] i [place] [id number] [address] 2020-08-06 2020-08-06 Patient Bhumika Hernandez Amy 1.2.840.114 [id number] 00:00:00 00:00:00 Outreach E [place] [id number] [place] 4.2.7.2.686 [id number] 2020-08-05 2020-08-05 Patient Amy [place] 1.2.840.114 [id number] 00:00:00 00:00:00 Outreach Vilma E [place] [id number] [place] 4.2.7.2.686 [id number] 2020-08-05 2020-08-05 Patient Amy [place] 1.2.840.114 [id number] Univers 00:00:00 00:00:00 Outreach Vilma E [place] 350.1.13.10 [id number] [address] 2020-08-01 2020-08-01 Patient Bhumika Hernandez Amy 1.2.840.114 [id number] 00:00:00 00:00:00 Outreach E [place] [id number] [place] 4.2.7.2.686 [id number] [facility] 2020-08-01 2020-08-01 Patient Bhumika Hernandez Amy 1.2.840.114 [id number] Univers 00:00:00 00:00:00 Outreach E [place] 350.1.13.10 i [id number] [address] 2020-07-24 2020-07-24 Transition Amy Jimenez 1.2.840.114 [id number] 00:00:00 00:00:00 of Care Dot [place] [id number] [place] 4.2.7.2.686 [id number] [facility] 2020-07-24 2020-07-24 Transition Amy Jimenez 1.2.840.114 [id number] Univers 00:00:00 00:00:00 of Care [place] 350.1.13.10 [place] [id number] [address] 2020-07-24 2020-07-24 Transition Amy Jimenez 1.2.840.114 [id number] Univers 00:00:00 00:00:00 of Care [place] 350.1.13.10 [place] [id number] [address] 2020-07-24 2020-07-24 Patient Bhumika Hernandez Amy 1.2.840.114 [id number] Univers 00:00:00 00:00:00 Outreach E [place] 350.1.13.10 [place] [id number] [address] 2020-07-24 2020-07-24 Transition Amy Jimenez 1.2.840.114 [id number] 00:00:00 00:00:00 of Care [place] 350.1.13.10 [place] 4.2.7.2.686 [id number] 2020-07-24 2020-07-24 Patient Bhumika Hernandez 1.2.840.114 [id number] 00:00:00 00:00:00 Outreach Levi [place] 350.1.13.10 [place] 4.2.7.2.686 [id number] 403 2020-07-21 2020-07-23 [facility] 1.2.840. 114 [id number] [facility] 13:42:00 14:30:00 Encounter Rosa Mradhazeke Naif [facility]13.10 [facility] 4.2.7.2.686 [facility] [id number] [address] 2020-07-21 2020-07-23 [facility] 1.2.840. 114 [id number] 13:42:00 14:30:00 Encounter Rosa Mradhazeke Naif Bhatia 350.1.13.10 [place] 4.2.7.2.686 Omar [id number] 2020-07-21 2020-07-21 Emergency X [facility] ERT [id number] Univers 13:42:00 13:42:00 [facility] Results Test Description Test Time Test Comments Results Result Comments Source VITAMIN D, 25-OH 2020-07-22 16:04:00 Test Item Value Reference Range Interpretation Comme nts VIT D 25OH (test code = 37235-5) 22 ng/mL 25-80 L FRANSISCO (test code = FRANSISCO) Deficiency: <20 ng/mLInsufficiency: 20-24 ng/mLOptimal: 25-80 ng/mL Lab Interpretation (test code = 36882-6) [facility]normal [id number] 15:25:00 Test Item Value Reference Range Interpretation Comments TROPONIN I (test <0.012 See_Comment [Automated code = 9378656446) message] The system which generated this result [...] ? Lab Interpretation Normal (test code = 27120-9) [facility] 14:21:00 Test Item Value Reference Range Interpretation Comments Procalcitonin (test 0.08 ng/mL <0.07 H code = 2162718206) FRANSISCO (test code = FRANSISCO) INTERPRETATION OF [...] lung abscess/empyema. For further information please refer to:[email or web address] Lab Interpretation Abnormal (test code = 76112-3) [facility] Hospital[facility]NEUM[facility]OCCAL [id number] 14:10:00 Test Item Value Reference Range Interpretation Comments S. pneumoniae antigen (test code = Negative Negative 5457626379) Lab Interpretation (test code = Normal 82667-0) [facility] UR[facility] ANTIGEN [id number] 14:10:00 Test Item Value Reference Range Interpretation Comments Legionella Urinary Negative Negative Antigen (test code = 3247455776) FRANSISCO (test code = FRANSISCO) Negative for [...] test. Lab Interpretation (test Normal code = 57558-1) [facility] [id number] 09:00:00 Test Item Value Reference Range Interpretation Comments TROPONIN I (test <0.012 See_Comment [Automated code = 4962639731) message] The system which generated this result [...] ? Lab Interpretation Normal (test code = 40438-5) [facility] (NA, K, CL, CO2, GLUCOSE, BUN, CREATININE, CA)2020-07-22 08:49:00 Test Item Value Reference Range Interpretation Comments NA (test code = 135 mmol/L 135-145 8463689551) K (test code = 4.4 mmol/L 3.5-5 9829060487) CL (test code = 104 mmol/L 98-108 8235284687) CO2 TOTAL (test code = 22 mmol/L 23-31 L 8078027594) AGAP (test code = 2-16 4882687724) BUN (test code = 13 mg/dL 7-23 3542358851) GLUCOSE (test code = 142 mg/dL 70-110 H 4172245972) CREATININE (test code = 0.84 mg/dL 0.6-1.25 6747436417) CALCIUM (test code = 9.4 mg/dL 8.6-10.6 1988385805) eGFR Calculation mL/min/1.73m2 (Non-) (test code = 1988132949) eGFR Calculation mL/min/1.73m2 () (test code = 0334465121) FRANSISCO (test code = FRANSISCO) Association of [...] tests). Lab Interpretation Abnormal (test code = 48024-2) [facility] with [id number] 07:36:00 Test Item Value Reference Range Interpretation Comments WBC (test code = See_Comment [Automated 6690-2) message] The sy stem which generated this result transmitted reference range : 4.20 - 10.70 10*3/?L. The reference range was not used to interpret this result as normal/abnormal . RBC (test code = See_Comment [Automated 789-8) message] The sy stem which generated this [...] RDW-SD (test code = 39.8 fL 38.5-51.6 42634-6) RDW-CV (test code = 13.5 % 12.1-15.4 788-0) PLT (test code = See_Comment [Automated 777-3) message] The sy stem which generated this result transmitted reference range : 150 - 328 10*3/ ?L. The reference r matthias was not used to interpret this result as normal/abnormal . MPV (test code = 10.3 fL 9.8-13 94503-0) NRBC/100 WBC (test See_Comment [Automat ed code = 9840937643) message] The system which generated this result transmitted reference range : 0.0 - 10.0 /100 WBCs. The refer ence range was not u sed to interpret th is result as normal/abnormal . NRBC x10^3 (test code <0.01 See_Comment [Auto mated = 6778720019) message] The s ystem which generated this result transmitted reference range : 10*3/?L. The reference range was not used to interpret this result as normal/abnormal . GRAN MAT (NEUT) % 78.8 % (test code = 770-8) IMM GRAN % (test code 0.50 % = 3692425176) LYMPH % (test code = 17.8 % 736-9) MONO % (test code = 2.5 % 5905-5) EOS % (test code = 0.1 % 713-8) BASO % (test code = 0.3 % 706-2) GRAN MAT x10^3(ANC) 5.99 10*3/uL 1.99-6.95 (test code = 5213054009) IMM GRAN x10^3 (test 0.04 10*3/uL 0-0.06 code = 6960207808) LYMPH x10^3 (test code 1.35 10*3/uL 1.09-3.23 = 731-0) MONO x10^3 (test code 0.19 10*3/uL 0.36-1.02 L = 742-7) EOS x10^3 (test code = <0.03 0.06-0.53 L 711-2) BASO x10^3 (test code <0.03 0.01-0.09 = 704-7) Lab Interpretation Abnormal (test code = 25579-1) [facility] VW [id number] 02:35:40 No acute cardiopulmonary process. Disclaimer: Generally, the findings on chest imaging in COVID-19 are notspecific, and overlap with other infections, including influenza, H1N1,SARS and MERS.Accordingto the Centers for Disease Control (CDC) and the [employer], viral testing remainsthe only specific method of diagnosiseven if CXR or CT findings are suggestive of COVID-19. Preliminary Report Dictated by Resident: Aldo Hernandez MD., have reviewed this study andagree with the abovereport.PROCEDURE: CHEST XRAY frontal view., CLINICAL INDICATION: chest pain COMPARISON: Chest radiograph 03/08/2016 FINDINGS: Lungs: No focal consolidation. Pleura: No pleural effusion or pneumothorax is seen. The heart is normal insize. No acute bony abnormality. [facility], Radiant Results Inft User - 07/21/2020 9:36 PM CDTPROCEDURE: CHEST XRAY frontal view., CLINICAL INDICATION: chestpain COMPARISON: Chest radiograph 03/08/2016FINDINGS:Lungs: No focal consolidation.Pleura: No pleural effusion or pneumothorax is seen. The heart is normal insize.No acute bony abnormality.IMPRESSIONNo acute cardiopulmonary process. Disclaimer: Generally, the findings on chest imaging in COVID-19 are notspecific, and overlap with other infections, including influenza, H1N1,SARS and MERS.According to the Centers for Disease Control (CDC) and the [employer], viral testing remains the only specific method of diagnosiseven if CXR or CT findings are suggestive of COVID-19. Preliminary Report Dictated by Resident: Aldo Vivas MD., have reviewed this study and agree with the abovereport.[facility] HospitalNorm [id number] 23:11:00 Test Item Value Reference Range Interpretation Comments TROPONIN I (test <0.012 See_Comment [Automated code = 4301926944) message] The system which generated this result [...] ? Lab Interpretation Normal (test code = 94206-6) [facility] HospitalMagnesium [id number] 22:58:00 Test Item Value Reference Range Interpretation Comments MAGNESIUM (test code = 9322512741) 1.8 mg/dL 1.7-2.4 Lab Interpretation (test code = Normal 66469-5) [facility] HospitalThyroid Stimulating Hormone (TSH)2020-07-21 22:40:00 Test Item Value Reference Range Interpretation Comments TSH (test code = See_Comment [Automated message] 9111482583) The system Skift generated this result transmitted ref erence range: 0.45 - 4 .70 mIU/L. The refe rence range was not u sed to interpret this result as normal/abnor mal. Lab Interpretation (test Normal code = 72439-3) [facility] HospitalGlycosylated Hemoglobin (A1C)2020-07-21 22:19:00 Test Item Value Reference Range Interpretation Comments HGB A1C (test code = 5.9 % 4-6 4548-4) FRANSISCO (test code = FRANSISCO) %A1C (NGSP) Interpretation (ADA)4.8-5.6 ? ? Normal or (Non-Diabetic Range)5.7-6.4 ? ? Increased Risk (Pre-Diabetic)>6.5 ?Diabetes Indicated Lab Interpretation Normal (test code = 94423-5) [facility] HospitalLipid Panel (Total Cholesterol, Triglycerides, HDL)2020-07-21 22:09:00 Test Item Value Reference Range Interpretation Comments CHOL (test code = 185 mg/dL 120-200 3418223681) HDL (test code = 28 mg/dL >40 L 2689721382) HDLC RATIO (test code = See_Comment H [Au tomated message] 7497723448) The system Skift generated this result transmit rossy reference range : <=5.0. The refe rence range was not u sed to interpret th is result as normal/abnormal . TRIG (test code = 279 mg/dL 30-170 H 3885147824) LDL CHOL (test code = 101 mg/dL See_Comment [Auto mated message] 25224-0) The system Skift generated this result transmit rossy reference range : <=160. The refe rence range was not u sed to interpret th is result as normal/abnormal . VLDL (test code = 56 mg/dL 5-60 3818890495) Lab Interpretation (test Abnormal code = 61686-5) [facility] HospitalFERRITIN [id number] 20:12:00 Test Item Value Reference Range Interpretation Comments FERRITIN (test code = 219.0 ng/mL 18-464 9823161696) FRANSISCO (test code = FRANSISCO) Biotin has been reported to cause a negative bias, interpret results relative to patient's use of biotin. Lab Interpretation (test Normal code = 22260-0) [facility] HospitalD-[id number] 20:00:00 Test Item Value Reference Interpretation Comments Range D-DIMER (test code = See_Comment [Autom ated 0728122127) message] The system which generated this result [...] diagnosis. Lab Interpretation Normal (test code = 42504-1) [facility] HospitalTroponin [id number] 19:50:00 Test Item Value Reference Range Interpretation Comments TROPONIN I (test <0.012 See_Comment [Automated code = 1364185198) message] The system which generated this result [...] ? Lab Interpretation Normal (test code = 92137-3) [facility] HospitalaPTT2020-09-07 19:50:00 Test Item Value Reference Range Interpretation Comments APTT Patient (test See_Comment [Automat ed code = 3173-2) message] The system which generated this result transmitted reference range : 23 - 38 Seconds . The reference range was not used to interpr et this result as normal/abnormal . FRANSISCO (test code = FRANSISCO) The [facility] patient population mean normal value for aPTT is 30 seconds. Lab Interpretation Normal (test code = 10718-6) [facility] HospitalFIBRINOGEN2020-09-07 19:50:00 Test Item Value Reference Range Interpretation Comments Fibrinogen (test code = 4412951417) 445 mg/dL 214-470 Lab Interpretation (test code = Normal 23907-5) [facility] HospitalProthrombin Time (PT) / [id number] 19:47:00 Test Item Value Reference Range Interpretation [...] tions. Lab Interpretation (test Normal code = 53353-8) [facility] HospitalN-TERMINAL [id number] 19:46:00 Test Item Value Reference Range Interpretation Comments NT-proBNP (test code 27 pg/mL See_Comment [Autom ated = 3691162155) message] The system which generated this result transmitted reference range : <=125. The reference range was not used to interpret this result as normal/abnormal . FRANSISCO (test code = FRANSISCO) Biotin has been reported to cause a negative bias, interpret results relative to patient's use of biotin. Lab Interpretation Normal (test code = 22812-4) [facility]ofl [facility] Met[facility] Panel (NA, K, CL, CO2, GLUCOSE, BUN, CREATININE, CA)2020-07-21 19:38:00 Test Item Value Reference Range Interpretation Comments NA (test code = 134 mmol/L 135-145 L 1815728036) K (test code = 3.8 mmol/L 3.5-5 6401595396) CL (test code = 99 mmol/L 98-108 5096445307) CO2 TOTAL (test code = 23 mmol/L 23-31 0628024961) AGAP (test code = 2-16 3527663242) BUN (test code = 9 mg/dL 7-23 8644937090) GLUCOSE (test code = 109 mg/dL 70-110 8015323029) CREATININE (test code = 0.82 mg/dL 0.6-1.25 6804416123) CALCIUM (test code = 9.5 mg/dL 8.6-10.6 2595231226) eGFR Calculation mL/min/1.73m2 (Non-) (test code = 2424064670) eGFR Calculation mL/min/1.73m2 () (test code = 5851786403) FRANSISCO (test code = FRANSISCO) Association of [...] tests). Lab Interpretation Abnormal (test code = 14824-6) [facility] HospitalHepatic Function Panel (ALB, T.PRO, BILI T, BU/BC, ALT, AST, ALK PHOS)2020-07-21 19:38:00 Test Item Value Reference Range Interpretation Comments TOTAL BILI (test code = 8437466818) 0.7 mg/dL 0.1-1.1 BILI UNCON (test code = 8280991199) 0.8 mg/dL 0.1-1.1 BILI CONJ (test code = 7490116072) 0.0 mg/dL 0-0.3 T PROTEIN (test code = 7143694163) 8.2 g/dL 6.3-8.2 ALBUMIN (test code = 0547969935) 4.7 g/dL 3.5-5 ALK PHOS (test code = 1227969180) 90 U/L 34-122 ALTv (test code = 1742-6) 51 U/L 5-50 H AST(SGOT) (test code = 7833834622) 32 U/L 13-40 Lab Interpretation (test code = Abnormal 76416-9) [facility] HospitalLipase [id number] 19:38:00 Test Item Value Reference Range Interpretation Comments LIPASE (test code = 9867306464) 58 U/L 0-220 Lab Interpretation (test code = Normal 18429-8) [facility] HospitalLACTATE [id number] 19:36:00 Test Item Value Reference Range Interpretation Comments LDH (test code = 9914090258) 369 U/L 300-600 Lab Interpretation (test code = Normal 59300-5) [facility] HospitalCOVID-19 (ID NOW RAPID TESTING)2020-07-21 19:32:00 Test Item Value Reference Range Interpretation Comments SARS-CoV-2 Rapid ID NOW Positive Not Detected A (test code = 25869-4) FRANSISCO (test code = FRANSISCO) ID NOW COVID-19 Assay is an isothermal nucleic acid amplification test intended for the qualitative detection of nucleic acid from SARS-CoV-2 viral RNA in nasopharyngeal (ACCOUNTS PAYABLE PAYROLL COORDINATOR) specimens. It is used under Emergency Use [...] indicated. Lab Interpretation Abnormal (test code = 38045-3) [facility] HospitalCB with [id number] 19:20:00 Test Item Value Reference Range Interpretation Comments WBC (test code = See_Comment [Automated 2590-2) message] The sy stem which generated this result transmitted reference range : 4.20 - 10.70 10*3/?L. The reference range was not used to interpret this result as normal/abnormal . RBC (test code = See_Comment H [Automated 545-8) message] The sy stem which generated this [...] RDW-SD (test code = 39.6 fL 38.5-51.6 73325-1) RDW-CV (test code = 13.3 % 12.1-15.4 788-0) PLT (test code = See_Comment [Automated 777-3) message] The sy stem which generated this result transmitted reference range : 150 - 328 10*3/ ?L. The reference r matthias was not used to interpret this result as normal/abnormal . MPV (test code = 10.0 fL 9.8-13 82908-6) NRBC/100 WBC (test See_Comment [Automat ed code = 4908215498) message] The system which generated this result transmitted reference range : 0.0 - 10.0 /100 WBCs. The refer ence range was not u sed to interpret th is result as normal/abnormal . NRBC x10^3 (test code <0.01 See_Comment [Auto mated = 2548706351) message] The s ystem which generated this result transmitted reference range : 10*3/?L. The reference range was not used to interpret this result as normal/abnormal . GRAN MAT (NEUT) % 69.0 % (test code = 770-8) IMM GRAN % (test code 0.40 % = 0152207576) LYMPH % (test code = 22.2 % 736-9) MONO % (test code = 7.8 % 5905-5) EOS % (test code = 0.4 % 713-8) BASO % (test code = 0.2 % 706-2) GRAN MAT x10^3(ANC) 5.65 10*3/uL 1.99-6.95 (test code = 8445945915) IMM GRAN x10^3 (test 0.03 10*3/uL 0-0.06 code = 7900263434) LYMPH x10^3 (test code 1.82 10*3/uL 1.09-3.23 = 731-0) MONO x10^3 (test code 0.64 10*3/uL 0.36-1.02 = 742-7) EOS x10^3 (test code = 0.03 10*3/uL 0.06-0.53 L 711-2) BASO x10^3 (test code <0.03 0.01-0.09 = 704-7) Lab Interpretation Abnormal (test code = 26870-1) [facility] [id number] 08:52:00Surgical Pathology Report Case: [id number] Authorizing Provider: Jigna Diallo MD Collected: 01/24/2019 0834 Ordering Location: [address] Received: 01/24/2019 1414 Service Pathologist: Leon Chacko MD Specimen: Stomach, biopsy A. STOMACH, RANDOM BIOPSIES: - CHRONIC GASTRITIS WITH FOCAL ACTIVITY (SEE COMMENT) - NEGATIVE FOR HELICOBACTER PYLORI ORGANISMS BY WARTHIN STARRY STAIN - NEGATIVE FOR INTESTINAL METAPLASIA, DYSPLASIA, MALIGNANCY Signing Pathologist Direct Phone Line: [phone] signed by Leon Chacko MD on 01/25/2019 at 8:52 [id number] pain Stomach biopsy The specimen is received in a formalin-filled container labeled with the patient's information and labeled "stomach biopsy" and consists of four fragments of regan- red soft tissue ranging from 0.1 to 0.5 cm, submitted entirely in A1. CG/ew Performed.The interpretation of this case included the use of immunohistochemistry or special stains. Immunohistochemistry technical testing was performed at [facility], Pathology Laboratory where it was developed and its performance characteristics were determined. It has not been cleared or approved by the U.S. Food andDrug Administration. The FDA has determined that such clearance or approval is not necessary. The test is used for clinical purposes. It should not be regarded as investigational or for research. This laboratory is certified under the Clinical Laboratory Improvement Amendments of 1988 (CLIA-88) as qualified to perform high complexity clinical laboratory testing.[id number] 07:34:00 Test Item Value Reference Range Interpretation Comments MAGNESIUM (BEAKER) (test code = 1.8 mg/dL 1.6-2.6 627) BASIC METABOLIC [id number] 07:34:00 Test Item Value Reference Range Interpretation [...] PATIEN TS. CBC W/PLT COUNT & AUTO [id number] 06:31:00 Test Item Value Reference Range Interpretation [...] % 0-1 PERCENT (BEAKER) (test code = 2802) [id number] 05:51:00 Test Item Value Reference Range Interpretation Comments MAGNESIUM (BEAKER) 2.2 mg/dL 1.6-2.6 Specimen slightly (test code = 627) hemolyzed BASIC METABOLIC [id number] 05:51:00 Test Item Value Reference Range Interpretation [...] PATIEN TS. CBC W/PLT COUNT & AUTO [id number] 05:35:00 Test Item Value Reference Range Interpretation [...] PET, CARDIAC PERFUSION MULTIPLE STUDIES, REST AND [id number] 16:26:00 Reason for exam:->chest painFINAL REPORT PROCEDURE: MYOCARDIAL PERFUSION PET IMAGING (Rest/Stress) [64198] INDICATION: Chest pain CARDIOVASCULAR PROFILE:Symptoms: Chest pain, anginaCAD History: NoneRisk Factor s: Obesity (BMI 39.1), dyslipidemia, tobaccoMedications: Aspirin, heparin, atorvastatin, metoprolol,nitroglycerin STRESS PROTOCOL:Pharmacologic stress was achieved with a 10-second intravenous infusion of regadenoson 0.4 mg. IMAGING PROTOCOL:- Limited low-dose CT imaging was performed for attenuationcorrection.- 40.2 mCi of Rb-82 chloride was injected [...] LV function, which does not deteriorate with stress .4. Normal extracardiac tracer distribution.5. Low-risk findings.6. There is no prior study for comparison. Signed: Gee Dhaliwal Verified Date/Time: 01/22/2019 16:26:04 Reading Location: [address] [facility] Reading Room TROPONIN [id number] 12:20:00 Test Item Value Reference Range Interpretation [...] neurological disease, and persistent tachyarrhythmia.TSH/FREE T4 IF [id number] 07:27:00 Test Item Value Reference Range Interpretation Comments THYROID STIMULATING HORMONE 1.18 uIU/mL 0.35-4.94 (BEAKER) (test code = 772) TROPONIN [id number] 07:15:00 Test Item Value Reference Range Interpretation [...] acute neurological disease, and persistent tachyarrhythmia.BASIC METABOLIC [id number] 07:10:00 Test Item Value Reference Range Interpretation [...] S NOT APPLICABLE FOR DIALYSIS PATIEN TS. [id number] 07:07:00 Test Item Value Reference Range Interpretation Comments MAGNESIUM (BEAKER) 2.5 mg/dL 1.6-2.6 Specimen slightly (test code = 627) hemolyzed [id number] 07:01:00 Test Item Value Reference Range Interpretation Comments PARTIAL THROMBOPLASTIN TIME 53.6 seconds 22.5-36.0 H (BEAKER) (test code = 760) CBC W/PLT COUNT & AUTO [id number] 06:54:00 Test Item Value Reference Range Interpretation [...] PERCENT (BEAKER) (test code = 2801) TROPONIN [id number] 21:31:00 Test Item Value Reference Range Interpretation [...] acidosis, acute neurological disease, and persistent tachyarrhythmia.HEMOGLOBIN [id number] 16:43:00 Test Item Value Reference Range Interpretation Comments HEMOGLOBIN A1C (BEAKER) (test code = 5.8 % 4.3-6.1 368) TROPONIN [id number] 13:42:00 Test Item Value Reference Range Interpretation [...] failure, acidosis, acute neurological disease, and persistent tachyarrhythmia.[id number] 13:37:00 Test Item Value Reference Range Interpretation Comments PARTIAL THROMBOPLASTIN TIME 53.8 seconds 22.5-36.0 H (BEAKER) (test code = 760) [id number] 08:07:00 Test Item Value Reference Range Interpretation Comments PARTIAL THROMBOPLASTIN TIME 52.7 seconds 22.5-36.0 H (BEAKER) (test code = 760) CBC W/PLT COUNT & AUTO [id number] 06:33:00 Test Item Value Reference Range Interpretation [...] pg/mL 0-100 (test code = 700) TROPONIN [id number] 06:19:00 Test Item Value Reference Range Interpretation [...] failure, acidosis, acute neurological disease, and persistent tachyarrhythmia.[id number] 06:15:00 Test Item Value Reference Range Interpretation Comments PARTIAL THROMBOPLASTIN TIME > seconds 22.5-36.0 HH (BEAKER) (test code = 760) LIPID [id number] 06:12:00 Test Item Value Reference Range Interpretation Comments TRIGLYCERIDES (BEAKER) 310 mg/dL Speci men slightly (test code = 540) hemolyzed CHOLESTEROL (BEAKER) 153 mg/dL Specime n slightly (test code = 631) hemolyzed HDL CHOLESTEROL (BEAKER) 24 mg/dL (test code = 976) LDL CHOLESTEROL 67 mg/dL CALCULATED (BEAKER) (test code = 633) Triglyceride Reference Range: Low Risk <150 Borderline 150-199 High Risk 200- 499 Very High Risk >=500Cholesterol Reference Range: Low Risk <200 Borderline 200-239 High Risk >240HDL Cholesterol Reference Range: Low Risk >=60 High Risk <40LDL Cholesterol Reference Range: Optimal <100 Near Optimal 100-129 Borderline 130-159 High 160-189 Very High >=190COMPREHENSIVE METABOLIC [id number] 06:11:00 Test Item Value Reference Range Interpretation [...] S NOT APPLICABLE FOR DIALYSIS PATIEN TS. [id number] 06:11:00 Test Item Value Reference Range Interpretation Comments MAGNESIUM (BEAKER) 1.9 mg/dL 1.6-2.6 Specimen slightly (test code = 627) hemolyzed
[2022-10-08] MEDS ORDERED: HYDROCODONE/CHLORPHEN 5 ML/OSYR ONE (17:57)
[2022-10-08] MEDS ORDERED: PROMETHAZINE 25 MG TABLET ONE (17:58)
[2022-10-08 18:44] LABS: SARS-COV-2 RT PCR NEGATIVE (NEGATIVE)
--- NOTE | 2022-10-08 18:51 | EDPHYS ---
Physician Documentation [facility] Name: Blake Wilson Age: 57 yrs Sex: Male : 1965 Arrival Date: 10/08/2022 Time: 17:15 Bed IW1 Private MD: ED Physician Alonzo Fierro HPI: 10/08 17:55 This 57 yrs old Male presents to ER via Ambulatory with complaints of Cough, snw Shortness Of Breath, Sore Throat. 17:55 The patient or guardian reports cough, flu symptoms, low-grade fever, myalgias, no snw appetite. Onset: The symptoms/episode began/occurred suddenly, 2 day(s) ago, and became persistent. Severity of symptoms: At their worst the symptoms were moderate, severe. Associated signs and symptoms: Pertinent positives: earache, fever, sore throat. The patient has not experienced similar symptoms in the past. The patient has not recently seen a physician. Historical: - Allergies: 17:42 No Known Allergies; hb - Home Meds: 17:42 Symbicort inhalation [Active]; hb - PMHx: 17:42 COPD; gastric ulcer; hb - Immunization history:: Adult Immunizations up to date, Client reports receiving the 2nd dose of the Covid vaccine. - Social history:: Smoking status: Patient denies any tobacco usage or history of. ROS: 17:55 Eyes: Negative for injury, pain, redness, and discharge. snw 17:55 Neck: Negative for injury, pain, and swelling, Cardiovascular: Negative for chest pain, palpitations, and edema. 17:55 Abdomen/GI: Negative for abdominal pain, nausea, vomiting, diarrhea, and constipation, Back: Negative for injury and pain, : Negative for injury, bleeding, discharge, and swelling, MS/Extremity: Negative for injury and deformity, Skin: Negative for injury, rash, and discoloration, Neuro: Negative for headache, weakness, numbness, tingling, and seizure. 17:55 Constitutional: Positive for body aches, chills, fatigue, fever, malaise, poor PO intake. 17:55 ENT: Positive for ear pain, sinus congestion, sore throat. 17:55 Respiratory: Positive for cough, wheezing. Exam: 17:54 Head/Face: Normocephalic, atraumatic. Eyes: Pupils equal round and reactive to light, snw extra-ocular motions intact. Lids and lashes normal. Conjunctiva and sclera are non-icteric and not injected. Cornea within normal limits. Periorbital areas with no swelling, redness, or edema. 17:54 Neck: Trachea midline, no thyromegaly or masses palpated, and no cervical lymphadenopathy. Supple, full range of motion without nuchal rigidity, or vertebral point tenderness. No Meningismus. Chest/axilla: Normal chest wall appearance and motion. Nontender with no deformity. No lesions are appreciated. Cardiovascular: Regular rate and rhythm with a normal S1 and S2. No gallops, murmurs, or rubs. Normal PMI, no JVD. No pulse deficits. Respiratory: Lungs have equal breath sounds bilaterally, clear to auscultation and percussion. No rales, rhonchi or wheezes noted. No increased work of breathing, no retractions or nasal flaring. Abdomen/GI: Soft, non-tender, with normal bowel sounds. No distension or tympany. No guarding or rebound. No evidence of tenderness throughout. Back: No spinal tenderness. No costovertebral tenderness. Full range of motion. Skin: Warm, dry with normal turgor. Normal color with no rashes, no lesions, and no evidence of cellulitis. MS/ Extremity: Pulses equal, no cyanosis. Neurovascular intact. Full, normal range of motion. Neuro: Awake and alert, GCS 15, oriented to person, place, time, and situation. Cranial nerves II-XII grossly intact. Motor strength 5/5 in all extremities. Sensory grossly intact. Cerebellar exam normal. Normal gait. 17:54 Constitutional: The patient appears alert, uncomfortable. 17:54 ENT: Ear canal(s): are normal, Nose: is normal, Mouth: is normal, Posterior pharynx: erythema, that is mild, Voice: is normal. Vital Signs: 17:40 BP 135 / 78; Pulse 94; Resp 18; Temp 98.8; Pulse Ox 98% on R/A; Weight 102.97 kg; hb Height 5 ft. 4 in. (162.56 cm); Pain 8/10; 17:40 Body Mass Index 38.96 (102.97 kg, 162.56 cm) hb MDM: 17:45 Patient medically screened. snw 18:51 Data reviewed: vital signs, nurses notes. Data interpreted: Pulse oximetry: on room air snw is 98 %. Interpretation: normal. Counseling: I had a detailed discussion with the patient and/or guardian regarding: the historical points, exam findings, and any diagnostic results supporting the discharge/admit diagnosis, lab results, the need for outpatient follow up, to return to the emergency department if symptoms worsen or persist or if there are any questions or concerns that arise at home. Special discussion: Based on the history and exam findings, there is no indication for further emergent testing or inpatient evaluation. I discussed with the patient/guardian the need to see the primary care provider for further evaluation of the symptoms. 10/08 17:49 Order name: COVID-19/FLU A+B/RSV; Complete Time: 18:50 snw Administered Medications: 18:00 Drug: Tussionex Pennkinetic ER (chlorpheniramine-hydrocodone) Suspension 5 ml Route: PO;hb 18:00 Drug: Phenergan (promethazine) 25 mg Route: PO; hb Disposition Summary: 10/08/22 18:51 Discharge Ordered Location: Home snw Condition: Stable snw Diagnosis - Acute bronchitis, unspecified snw - Acute serous otitis media, bilateral snw Followup: snw - With: Emergency Department - When: As needed - Reason: Worsening of condition Followup: snw - With: Private Physician - When: 2 - 3 days - Reason: Recheck today's complaints, Continuance of care, Re-evaluation by your physician Discharge Instructions: - Discharge Summary Sheet snw - Acute Bronchitis, Adult snw - Fever, Adult snw - Rehydration, Adult snw - Otitis Media, Adult snw Forms: - Work release form snw - Medication Reconciliation Form snw - Thank You Letter snw - Antibiotic Education snw - Prescription Opioid Use snw Prescriptions: - Pepcid 20 mg Oral Tablet - take 1 tablet by ORAL route once daily; 20 tablet; Refills: 0, Product snw Selection Permitted - cetirizine 1 mg/mL Oral Solution - take 5 milliliters by ORAL route once daily; 105 milliliter; Refills: 0, snw Product Selection Permitted - Tylenol-Codeine #3 300 mg-30 mg Oral - take 1 tablet by ORAL route 3 times per day; 12 tablet; Refills: 0, Product snw Selection Permitted - Zithromax 500 mg Oral Tablet - take 1 tablet by ORAL route once daily for 5 days; 5 tablet; Refills: 0, snw Product Selection Permitted Signatures: Dispchristoer MedHoWendy Arvizu, ELECTRICAL AND INSTRUMENT TECHNICIAN-C ELECTRICAL AND INSTRUMENT TECHNICIAN-Csnw Eli Diego, RN RN hb
--- NOTE | 2022-10-08 18:51 | ER ---
Nurse's Notes [facility] Name: Blake Wilson Age: 57 yrs Sex: Male : 1965 Arrival Date: 10/08/2022 Time: 17:15 Bed IW1 Private MD: Diagnosis: Acute bronchitis, unspecified;Acute serous otitis media, bilateral Presentation: 10/08 17:39 Chief complaint: Cough, body aches, headache, sore throat, and decreased appetite, hb subjective fever, and SOB x 2 days. 17:40 Coronavirus screen: Client presents with at least one sign or symptom that may indicate hb coronavirus-19. Standard/surgical mask placed on the client. Provider contacted for isolation considerations. Ebola Screen: No symptoms or risks identified at this time. 17:40 Method Of Arrival: Ambulatory hb 17:40 Initial Sepsis Screen: Does the patient meet any 2 criteria? No. Patient's initial hb sepsis screen is negative. Does the patient have a suspected source of infection? No. Patient's initial sepsis screen is negative. Risk Assessment: Do you want to hurt yourself or someone else? Patient reports no desire to harm self or others. Onset of symptoms was October 07, 2022. 17:40 Acuity: SANGEETA 4 hb Triage Assessment: 17:40 General: Appears in no apparent distress. ill, Behavior is calm, cooperative. Pain: hb Pain currently is 8 out of 10 on a pain scale. Neuro: Level of Consciousness is awake, alert, obeys commands, Oriented to person, place, time, situation. Cardiovascular: Patient's skin is warm and dry. Respiratory: Respiratory effort is even, unlabored, Respiratory pattern is regular, symmetrical. Historical: - Allergies: 17:42 No Known Allergies; hb - Home Meds: 17:42 Symbicort inhalation [Active]; hb - PMHx: 17:42 COPD; gastric ulcer; hb - Immunization history:: Adult Immunizations up to date, Client reports receiving the 2nd dose of the Covid vaccine. - Social history:: Smoking status: Patient denies any tobacco usage or history of. Screenin:01 Abuse screen: Denies threats or abuse. Denies injuries from another. Nutritional hb screening: No deficits noted. Tuberculosis screening: No symptoms or risk factors identified. Fall Risk None identified. Vital Signs: 17:40 BP 135 / 78; Pulse 94; Resp 18; Temp 98.8; Pulse Ox 98% on R/A; Weight 102.97 kg; hb Height 5 ft. 4 in. (162.56 cm); Pain 8/10; 17:40 Body Mass Index 38.96 (102.97 kg, 162.56 cm) hb ED Course: 17:15 Patient arrived in ED. as 17:26 [facility]alc[facility]C [facility] snw 17:26 Alonzo Fierro MD is Attending Physician. snw 17:42 Triage completed. hb 17:42 Arm band placed on. hb 18:00 COVID-19/FLU A+B/RSV Sent. hb 19:01 Patient has correct armband on for positive identification. hb 19:01 No provider procedures requiring assistance completed. Patient did not have IV access hb during this emergency room visit. Administered Medications: 18:00 Drug: Tussionex Pennkinetic ER (chlorpheniramine-hydrocodone) Suspension 5 ml Route: PO;hb 18:00 Drug: Phenergan (promethazine) 25 mg Route: PO; hb Medication: 19:01 VIS not applicable for this client. hb Outcome: 18:51 Discharge ordered by . snw 19:00 Discharged to home ambulatory. hb 19:00 Condition: stable 19:00 Discharge instructions given to patient, Instructed on discharge instructions, follow up and referral plans. medication usage, Demonstrated understanding of instructions, follow-up care, medications, Prescriptions given X 4. 19:01 Patient left the ED. hb Signatures: Wendy Rubalcava FNP-C FNP-Mary Ho as Eli Diego, RN RN hb Corrections: (The following items were deleted from the chart) 17:41 17:39 Chief complaint: Cough, body aches, headache, sore throat, and decreased hb hb
[2022-10-08 19:06] VITALS: BP 135/78; TEMP 98.8; O2SAT 98
== END 2022-10-08 19:01 | disposition home or self-care (01) ==
LOC: ER 17:14
DX: J20.9 Acute bronchitis, unspecified (principal); H65.03 Acute serous otitis media, bilateral; Z20.822 Contact with and (suspected) exposure to COVID-19
CPT/HCPCS: 0241U; 99283; Q0169